=== PATIENT | female | born 1960 | race Caucasian/White ===

== ENCOUNTER → 2017-05-20 | Outpatient (CLI) | payer MEDICARE, OTHER ==
[~2017-05-20] MED LIST: FAMOTIDINE 20 MG/2 ML VIAL IV NR; FERUMOXYTOL 510 MG in SODIUM CHLORIDE 0.9% 50 ML IVPB NR; ONDANSETRON 16 MG in SODIUM CHLORIDE 0.9% 50 ML IVPB NR; SODIUM CHLORIDE 0.9% 500 ML in EMPTY BAG 1 BAG IV PRN
[2017-05-20 15:03] VITALS: BP 134/61; PULSE 77; RESP 20; TEMP 98
== END ==
LOC: EDSTATUS 14:00 → PROCWHC3 14:39
PROVIDERS: ATTEND Internal Medicine Hematology & Oncology
DX: D50.0 Iron deficiency anemia secondary to blood loss (chronic) (principal)
CPT/HCPCS: 96365; 96367; 96375; J2405; Q0138

== ENCOUNTER → 2017-10-22 | Outpatient (CLI) | payer MEDICARE ==
[2017-10-22 17:05] LABS: Calcium 9.7 mg/dL (8.4-10.2); Phosphorus 3.4 mg/dL (2.5-4.5); Potassium 4.2 mmol/L (3.5-5.1)
[2017-10-24 02:41] LABS: Iron Saturation 15.03 (12.00-45.00)
[2017-10-24 02:50] LABS: Vitamin D 25 Hydroxy 49.7 ng/mL (30.0-100.0)
== END | disposition home or self-care (01) ==
LOC: LABWHC1 16:21
DX: I10 Essential (primary) hypertension (principal)
CPT/HCPCS: 36415; 80048; 82306; 82728; 83540; 83550; 83735; 84100; 84550

== ENCOUNTER 2019-10-06 12:27 | Inpatient (IN) | payer MEDICARE ==
--- NOTE | 2019-10-06 12:59 | ED ---
General Adult HPI - General Chief complaint: Skin/Abscess/Foreign Body Stated complaint: cellulitis Time Seen by Provider: 10/06/19 12:35 Source: patient, RN notes reviewed Mode of arrival: ambulatory Limitations: no limitations - History of Present Illness Initial comments: Patient is a pleasant 59-year-old female presenting to the emergency department with concern for cellulitis. Patient has known ulcer of her left foot. Patient had some debridement done today. Patient has noticed some redness streaking up her leg. No fevers. Patient does have similar symptoms previously associated with cellulitis. No cough or dyspnea. - Related Data Home Medications Medication Instructions Recorded Confirmed Furosemide [Lasix] 80 mg PO Q8HR 05/20/17 05/24/19 INSULIN ASPART (NovoLOG) [NovoLOG] 60 unit SQ ACHS 05/20/17 05/24/19 Insulin Glargine [Lantus] 120 unit SQ BID 05/20/17 05/24/19 Baclofen [Lioresal] 20 mg PO BID 08/13/17 05/24/19 Omeprazole 20 mg PO BID 08/13/17 05/24/19 Allopurinol [Zyloprim] 300 mg PO DAILY 12/26/17 05/24/19 Aspirin 325 mg PO DAILY 12/26/17 05/24/19 Calcitriol [Rocaltrol] 0.25 mcg PO DIRECTED 12/26/17 05/24/19 Cetirizine HCl 10 mg PO DAILY 12/26/17 05/24/19 Cholecalciferol (Vitamin D3) 2,000 unit PO DAILY 12/26/17 05/24/19 [Vitamin D3] Docusate [Colace] 100 mg PO BID 12/26/17 05/24/19 Dulaglutide [Trulicity] 0.75 mg SQ WEEKLY 12/26/17 05/24/19 Ergocalciferol (Vitamin D2) 1 cap PO WEEKLY 12/26/17 05/24/19 [Vitamin D2] Ferrous Sulfate [Feosol] 325 mg PO BID 12/26/17 05/24/19 Folic Acid 1 mg PO DAILY 12/26/17 05/24/19 HYDROcodone/APAP 7.5-325MG [[place] 1 tab PO Q6HR PRN 12/26/17 05/24/19 7.5-325] Isosorbide Mononitrate [Isosorbide 30 mg PO DAILY 12/26/17 05/24/19 Mononitrate ER] LORazepam [Ativan] 0.5 mg PO BID 12/26/17 05/24/19 Metolazone [Zaroxolyn] 2.5 mg PO DAILY 12/26/17 05/24/19 Metoprolol Tartrate [Lopressor] 50 mg PO BID 12/26/17 05/24/19 Ondansetron HCl [Zofran] 8 mg PO TID 12/26/17 05/24/19 Oxygen 3 l NASAL CONTINUOUS 12/26/17 05/24/19 Potassium Chloride [K-Tab ER] 20 meq PO DAILY 12/26/17 05/24/19 Pregabalin [Lyrica] 300 mg PO TID 12/26/17 05/24/19 Spironolactone [Aldactone] 25 mg PO DAILY 12/26/17 05/24/19 Venlafaxine HCl [Effexor XR] 150 mg PO HS 12/26/17 05/24/19 Allergies Allergy/AdvReac Type Severity Reaction Status Date / Time codeine AdvReac Unknown Verified 05/24/19 13:20 Review of Systems ROS Statement: Those systems with pertinent positive or pertinent negative responses have been documented in the HPI. ROS Other: All systems not noted in ROS Statement are negative. Constitutional: Denies: fever Eyes: Denies: eye pain ENT: Denies: ear pain Respiratory: Denies: cough, dyspnea Cardiovascular: Denies: chest pain Endocrine: Denies: fatigue Gastrointestinal: Denies: abdominal pain Genitourinary: Denies: dysuria Musculoskeletal: Denies: back pain Skin: Reports: rash Neurological: Denies: weakness Past Medical History Past Medical History: Coronary Artery Disease (CAD), Heart Failure, COPD, CVA/TIA, Diabetes Mellitus, Deep Vein Thrombosis (DVT), GI Bleed, Hyperlipidemia, Hypertension, Myocardial Infarction ([place]), Osteoarthritis (OA), Pneumonia, Renal Disease, Respiratory Disorder, Skin Disorder, Sleep Apnea/CPAP/BIPAP Additional Past Medical History / Comment(s): supposed to use CPAP, DVT years ago right leg, stroke year ago-trouble w/speech @times, wound right foot, hx. anemia, stage 3 kidney disease Last Myocardial Infarction Date:: unknown History of Any Multi-Drug Resistant Organisms: None Reported Past Surgical History: Bladder Surgery, Heart Catheterization, Orthopedic Surgery, Tubal Ligation Additional Past Surgical History / Comment(s): right 2nd toe amputation, bladder suspension, sweat glands removed under arms, EGD/colonoscopies Past Anesthesia/Blood Transfusion Reactions: No Reported Reaction Past Psychological History: Depression Smoking Status: Former smoker - Past Family History Father Family Medical History: Diabetes Mellitus Mother Family Medical History: Cancer, Thyroid Disorder General Exam Limitations: no limitations General appearance: alert, in no apparent distress Head exam: Present: normocephalic Eye exam: Present: normal appearance Neck exam: Present: normal inspection Respiratory exam: Present: normal lung sounds bilaterally Cardiovascular Exam: Present: regular rate, normal rhythm GI/Abdominal exam: Present: soft. Absent: tenderness Extremities exam: Present: other (Left great toe with stage 3 ulcer. There is some erythema up to the mid chan.). Absent: calf tenderness Neurological exam: Present: alert Psychiatric exam: Present: normal affect, normal mood Skin exam: Present: erythema Course Vital Signs 10/06/19 12:29 Temperature 98.1 F Pulse Rate 88 Respiratory 20 Rate Blood Pressure 131/76 O2 Sat by Pulse 100 Oximetry - Reevaluation(s) Reevaluation #1: 10/06/19 14:06 Idea body weight of 55 kg. Fluid bolus of 1650 mL provided. 10/06/19 14:16 Patient does meet criteria for sepsis diagnosed at 1400. Blood culture and lactic acid ordered. IV antibiotics will be ordered. Fluid bolus ordered. EKG Findings - EKG Comments: EKG Findings:: Sinus rhythm at 73. VA 176. QRS 78. QT 394. QTC 434. Normal axis. Low QRS voltage. Septal Q waves. No acute ST change. Medical Decision Making - Medical Decision Making Patient reevaluated and updated. Case discussed with Dr. Brown, who will admit covering for Dr. Soria. - Lab Data Result diagrams: 10/06/19 13:20 10/06/19 13:20 Lab Results 10/06/19 10/06/19 10/06/19 Range/Units 13:20 13:20 13:20 WBC 13.7 H (3.8-10.6) k/uL RBC 3.94 (3.80-5.40) m/uL Hgb 11.3 L (11.4-16.0) gm/dL Hct 35.0 (34.0-46.0) % MCV 88.8 (80.0-100.0) fL MCH 28.8 (25.0-35.0) pg MCHC 32.4 (31.0-37.0) g/dL RDW 15.7 H (11.5-15.5) % Plt Count 260 (150-450) k/uL Neutrophils % 81 % Lymphocytes % 9 % Monocytes % 6 % Eosinophils % 2 % Basophils % 1 % Neutrophils # 11.1 H (1.3-7.7) k/uL Lymphocytes # 1.2 (1.0-4.8) k/uL Monocytes # 0.8 (0-1.0) k/uL Eosinophils # 0.3 (0-0.7) k/uL Basophils # 0.1 (0-0.2) k/uL Poikilocytosis Slight PT 9.7 (9.0-12.0) sec INR 0.9 (<1.2) APTT 22.7 (22.0-30.0) sec Sodium 136 L (137-145) mmol/L Potassium 4.5 (3.5-5.1) mmol/L Chloride 95 L (98-107) mmol/L Carbon Dioxide 31 H (22-30) mmol/L Anion Gap 10 mmol/L BUN 59 H (7-17) mg/dL Creatinine 1.33 H (0.52-1.04) mg/dL Est GFR (CKD-EPI)AfAm 50 (>60 ml/min/1.73 sqM) Est GFR (CKD-EPI)NonAf 43 (>60 ml/min/1.73 sqM) Glucose 263 H (74-99) mg/dL Plasma Lactic Acid Marshall (0.7-2.0) mmol/L Calcium 9.2 (8.4-10.2) mg/dL Total Bilirubin 0.5 (0.2-1.3) mg/dL AST 27 (14-36) U/L ALT 15 (4-34) U/L Alkaline Phosphatase 100 (38-126) U/L Total Protein 7.2 (6.3-8.2) g/dL Albumin 3.7 (3.5-5.0) g/dL 10/06/19 Range/Units 13:20 WBC (3.8-10.6) k/uL RBC (3.80-5.40) m/uL Hgb (11.4-16.0) gm/dL Hct (34.0-46.0) % MCV (80.0-100.0) fL MCH (25.0-35.0) pg MCHC (31.0-37.0) g/dL RDW (11.5-15.5) % Plt Count (150-450) k/uL Neutrophils % % Lymphocytes % % Monocytes % % Eosinophils % % Basophils % % Neutrophils # (1.3-7.7) k/uL Lymphocytes # (1.0-4.8) k/uL Monocytes # (0-1.0) k/uL Eosinophils # (0-0.7) k/uL Basophils # (0-0.2) k/uL Poikilocytosis PT (9.0-12.0) sec INR (<1.2) APTT (22.0-30.0) sec Sodium (137-145) mmol/L Potassium (3.5-5.1) mmol/L Chloride (98-107) mmol/L Carbon Dioxide (22-30) mmol/L Anion Gap mmol/L BUN (7-17) mg/dL Creatinine (0.52-1.04) mg/dL Est GFR (CKD-EPI)AfAm (>60 ml/min/1.73 sqM) Est GFR (CKD-EPI)NonAf (>60 ml/min/1.73 sqM) Glucose (74-99) mg/dL Plasma Lactic Acid Marshall 2.2 H* (0.7-2.0) mmol/L Calcium (8.4-10.2) mg/dL Total Bilirubin (0.2-1.3) mg/dL AST (14-36) U/L ALT (4-34) U/L Alkaline Phosphatase (38-126) U/L Total Protein (6.3-8.2) g/dL Albumin (3.5-5.0) g/dL - Radiology Data Radiology results: image reviewed (Left foot x-ray shows soft tissue swelling suggesting cellulitis. No fuad lytic distraction. Focal demineralization could represent impending osteomyelitis.) Critical Care Time Critical Care Time: Yes Total Critical Care Time: 33 Disposition Clinical Impression: Cellulitis, Sepsis Disposition: ADMITTED IP TO THIS HOSP Is patient prescribed a controlled substance at d/c from ED?: No Referrals: Richa Lopez MD [Primary Care Provider] - 1-2 days Decision Time: 14:17
[2019-10-06] MEDS: SODIUM CHLORIDE 0.9% 1,000 ML IV SCH ×2 (13:36→21:30)
--- NOTE | 2019-10-06 13:42 | XR ---
EXAMINATION TYPE: XR foot complete LT DATE OF EXAM: 10/06/2019 COMPARISON: NONE HISTORY: 59-year-old female great toe infection, pain TECHNIQUE: 3 views FINDINGS: Bony irregularity at the fifth metatarsal neck and also medial aspect of the fifth proximal phalangea l base suggests sequela of prior injury/healed fracture deformities. Moderate degenerative change fir st MTP joint with hallux valgus and bunion formation. Soft tissue swelling of the great toe. While there is no fuad osteolysis, there is suspicious bony d emineralization involving the distal phalangeal tuft particularly on the oblique view. A plantar ulce r is seen on the lateral view involving the great toe. IMPRESSION: 1. Soft tissue swelling suggesting cellulitis of the great toe with a plantar ulcer. 2. No fuad lytic destruction. However, marked focal demineralization involving the first distal phal angeal tuft could represent impending osteomyelitis. Radiographic follow-up may be helpful. 3. Correlate for any focal pain at the fifth MTP joint. There is bony irregularity involving both the fifth proximal phalangeal base and fifth metatarsal neck. In the absence of focal pain, likely chron ic healed fracture deformities. 4. First MTP joint OA with hallux valgus and bunion formation.
[2019-10-06 13:43] LABS: Basophils # (A) 0.1 k/uL (0-0.2); Basophils % (A) 1 %; Eosinophils # (A) 0.3 k/uL (0-0.7); Eosinophils % (A) 2 %; HGB 11.3 gm/dL (11.4-16.0); Lymphocytes # (A) 1.2 k/uL (1.0-4.8); Lymphocytes % (A) 9 %; MCH 28.8 pg (25.0-35.0); MCHC 32.4 g/dL (31.0-37.0); MCV 88.8 fL (80.0-100.0); Mean Platelet Volume 8.1; Monocytes # (A) 0.8 k/uL (0-1.0); Monocytes % (A) 6 %; Neutrophils # (A) 11.1 k/uL (1.3-7.7); Neutrophils % (A) 81 %; Platelet Count 260 k/uL (150-450); Poikilocytosis Slight; RBC 3.94 m/uL (3.80-5.40); RDW 15.7 % (11.5-15.5); WBC 13.7 k/uL (3.8-10.6)
[2019-10-06 13:52] LABS: Albumin 3.7 g/dL (3.5-5.0); Calcium 9.2 mg/dL (8.4-10.2); INR 0.9 (<1.2); Partial Thromboplastin Time 22.7 sec (22.0-30.0); Potassium 4.5 mmol/L (3.5-5.1); Prothrombin Time 9.7 sec (9.0-12.0); Total Bilirubin 0.5 mg/dL (0.2-1.3); Total Protein 7.2 g/dL (6.3-8.2)
[2019-10-06] MEDS ORDERED: SODIUM CHLORIDE 0.9% 1,000 ML IV STA ×2 (14:06)
[2019-10-06] MEDS ORDERED: NALOXONE 0.4 MG/ML 1 ML VIAL IV PRN (14:17)
[2019-10-06] MEDS ORDERED: PIPERACILLIN-TAZOBACTAM 3.375 GM in SODIUM CHLORIDE 0.9% 100 ML IVPB STA (14:17)
[2019-10-06] MEDS ORDERED: HYDROcodone/APAP 7.5-325MG 1 EACH TAB PO PRN (15:15)
[2019-10-06] MEDS ORDERED: OXYGEN NASAL SCH (15:15)
[2019-10-06] MEDS ORDERED: ONDANSETRON 4 MG TAB PO PRN (16:00)
[2019-10-06 16:47] LABS: Glucose,Whole Blood 458 mg/dL (75-99)
[2019-10-06] MEDS ORDERED: INSULIN ASPART (NovoLOG) 100 UNIT/ML VIAL SQ SCH (17:30)
[2019-10-06] MEDS: PREGABALIN 100 MG CAP PO SCH ×2 (17:41→20:45)
[2019-10-06 20:02] LABS: Glucose,Whole Blood 208 mg/dL (75-99)
[2019-10-06] MEDS: METOPROLOL TARTRATE 50 MG TAB PO SCH (20:44)
[2019-10-06] MEDS: VENLAFAXINE HCL ER 150 MG CAP PO SCH (20:45)
[2019-10-06] MEDS: DOCUSATE 100 MG CAP PO SCH (20:45)
[2019-10-06] MEDS: LORazepam 0.5 MG TAB PO SCH (20:45)
[2019-10-06] MEDS: HYDROcodone/APAP 7.5-325MG 1 EACH TAB PO PRN (20:52)
[2019-10-06] MEDS ORDERED: FERROUS SULFATE 325 MG TAB PO SCH (21:00)
[2019-10-06] MEDS ORDERED: INSULIN DETEMIR (LEVEMIR) 100 UNIT/ML SYR SQ SCH (21:00)
[2019-10-06] MEDS: INSULIN DETEMIR (LEVEMIR) 100 UNIT/ML SYR SQ SCH (21:28)
--- NOTE | 2019-10-06 22:23 | P.HPIM ---
History of Present Illness H&P Date: 10/06/19 Chief Complaint: Left foot infection Patient is a 59-year-old female with a known history of COPD on home oxygen, diabetes type 2 insulin-dependent, bilateral peripheral neuropathy, history of CVA with speech difficulty, previous history of right leg DVT, CK D stage III, obstructive sleep apnea not on CPAP at home, morbid obesity, peripheral vascular disease, history of right toe wound/debridements, ongoing left great toe ulcer since June 2019 was sent to ER from Dr. Oliver's office due to left great toe diabetic foot ulcer and increasing redness up to the left chan. Patient otherwise denied any complaints of fever or chills. No chest pain or worsening shortness of breath. No cough or sputum production. Denied any recent travel or sick contacts at home. X-ray of the left foot soft tissue swelling suggesting cellulitis of the great toe with plantar ulcer. No fuad lighting destruction. WBC 13.7, lactic acid 2.2, BNP 36 and creatinine 1.33, blood sugar 233 Review of Systems Constitutional: Patient denies any fever or chills . No generalized weakness or weight loss. Abdomen: Patient denied nausea vomiting and diarrhea and abdominal pain. Cardiovascular: Patient denies any chest pain or short of breath no palpitations. Respiratory: patient denied any cough is from production. No shortness of breath Neurologic: Patient denied any numbness or tingling headache. Left toe infection Musculoskeletal: Patient denies any complaints of joint swelling or deformity. Skin: Negative Psychiatric: Negative Endocrine: No heat or cold intolerance. No recent weight gain. Genitourinary: No dysuria or hematuria. All other 14 point ROS negative except the above Past Medical History Past Medical History: Coronary Artery Disease (CAD), Heart Failure, COPD, CV A/TIA, Diabetes Mellitus, Deep Vein Thrombosis (DVT), GERD/Reflux, GI Bleed, Hyperlipidemia, Hypertension, Myocardial Infarction ([place]), Osteoarthritis ([place]), Pneumonia, Renal Disease, Respiratory Disorder, Skin Disorder, Sleep Apnea/CPAP/BIPAP, Vascular Disorder Additional Past Medical History / Comment(s): IDDM type II, neuropathy bilateral feet up to knees and in hands and on stomach, PVD, past R toe wound/debridements and amputation, current L great toe ulcer/cellulitis-debridements, CVA with speech changes if tired, blood clot in aorta per pt-was sent to [facility] but states she never learned any more about it, past DVT R leg with surgical removal, home oxygen at 3L/NC ATC, CKD stage III, chronic anemia with blood and iron transfusions, lower GI bleed-source unknown, SKYLAR-pt does not use device, chronic low back pain, arthritis in multiple joints, 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 Last Myocardial Infarction Date:: 2004?? History of Any Multi-Drug Resistant Organisms: None Reported Past Surgical History: Bladder Surgery, Heart Catheterization, Orthopedic Surgery, Tubal Ligation Additional Past Surgical History / Comment(s): R foot toe debridements/right 2nd toe amputation, L toe wound debridement, bladder suspension, sweat glands removed under arms, EGD/colonoscopies/endoscopic capsule, surgery for deviated septum, peripheral procedure to remove DVT in R leg. Past Anesthesia/Blood Transfusion Reactions: No Reported Reaction Smoking Status: Former smoker - Past Family History Father Family Medical History: Diabetes Mellitus Additional Family Medical History / Comment(s): father is . Mother Family Medical History: Cancer, Thyroid Disorder Additional Family Medical History / Comment(s): Mother had breast cancer twice and thyroid cancer. She is still living. Medications and Allergies Home Medications Medication Instructions Recorded Confirmed Type Furosemide [Lasix] 80 mg PO TID@0900,1200,2100 05/20/17 10/06/19 History Baclofen [Lioresal] 20 mg PO BID 08/13/17 10/06/19 History Omeprazole 20 mg PO BID 08/13/17 10/06/19 History Allopurinol [Zyloprim] 300 mg PO DAILY 12/26/17 10/06/19 History Cetirizine HCl 10 mg PO DAILY 12/26/17 10/06/19 History Ergocalciferol (Vitamin D2) 1 cap PO Q30D 12/26/17 10/06/19 History [Vitamin D2] Ferrous Sulfate [Feosol] 325 mg PO DAILY 12/26/17 10/06/19 History HYDROcodone/APAP 7.5-325MG [[place] 1 tab PO DAILY PRN 12/26/17 10/06/19 History 7.5-325] Isosorbide Mononitrate [Isosorbide 30 mg PO DAILY 12/26/17 10/06/19 History Mononitrate ER] Metolazone [Zaroxolyn] 2.5 mg PO MOFR 12/26/17 10/06/19 History Metoprolol Tartrate [Lopressor] 50 mg PO BID 12/26/17 10/06/19 History Ondansetron HCl [Zofran] 8 mg PO Q8H PRN 12/26/17 10/06/19 History Potassium Chloride [K-Tab ER] 40 meq PO TID 12/26/17 10/06/19 History Pregabalin [Lyrica] 300 mg PO BID 12/26/17 10/06/19 History Spironolactone [Aldactone] 25 mg PO DAILY 12/26/17 10/06/19 History Venlafaxine HCl [Effexor XR] 150 mg PO DAILY 12/26/17 10/06/19 History Albuterol Sulfate [Proair Hfa] 2 puff INHALATION RT-QID PRN 10/06/19 10/06/19 History Aspirin EC [Ecotrin Low Dose] 81 mg PO DAILY 10/06/19 10/06/19 History Budesonide [Pulmicort Flexhaler] 1 puff INHALATION RT-BID 10/06/19 10/06/19 History Dulaglutide [Trulicity] 1.5 mg SQ FR 10/06/19 10/06/19 History Insulin Glargine,Hum.rec.anlog 90 unit SQ HS 10/06/19 10/06/19 History [Lantus Solostar] Insulin Glargine,Hum.rec.anlog 120 unit SQ DAILY 10/06/19 10/06/19 History [Lantus Solostar] Insulin Lispro [humaLOG Kwikpen] 60 unit SQ AC-TID 10/06/19 10/06/19 History Insulin Lispro [humaLOG Kwikpen] See Protocol SQ AC-TID 10/06/19 10/06/19 History Magnesium Oxide [Mag-Ox] 400 mg PO TID 10/06/19 10/06/19 History Pravastatin Sodium [Pravachol] 20 mg PO DAILY 10/06/19 10/06/19 History Prochlorperazine [Compazine] 10 mg PO DAILY PRN 10/06/19 10/06/19 History busPIRone HCl [Buspar] 10 mg PO BID 10/06/19 10/06/19 History Allergies Allergy/AdvReac Type Severity Reaction Status Date / Time codeine AdvReac headache Verified 10/06/19 15:54 Physical Exam Vitals: Vital Signs Temp Pulse Pulse Resp BP BP Pulse Ox 10/06/19 20:21 98.3 F 73 20 150/63 93 L 10/06/19 16:00 71 20 10/06/19 15:28 98.1 F 71 20 156/63 93 L 10/06/19 14:39 98.6 F 79 18 126/50 96 10/06/19 12:29 98.1 F 88 20 131/76 100 Intake and Output 10/06/19 10/06/19 10/06/19 06:59 14:59 22:59 Other: Voiding Method Toilet # Voids 1 Weight 120.202 kg 120.202 kg PHYSICAL EXAMINATION: Patient is lying in the bed comfortably, no acute distress, awake alert and oriented.. HEENT: Normocephalic. Neck is supple. Pupils reactive. Nostrils clear. Oral cavity is moist. Ears reveal no drainage. Neck reveals no JVD, carotid bruits, or thyromegaly. CHEST EXAMINATION: Trachea is central. Symmetrical expansion. Lung branch clear to auscultation and percussion. CARDIAC: Normal S1, S2 with no gallops. No murmurs ABDOMEN: Soft. Bowel sounds normal. No organomegaly. No abdominal bruits. Extremities: reveal no edema. No clubbing or cyanosis Left foot great toe plantar ulcer with surrounding redness. Serosanguineous di scharge. Tenderness positive. Neurologically awake, alert, oriented x3 with well-coordinated movements. No focal deficits noted Skin: No rash or skin lesions. Psychiatric: Coperative. Nonsuicidal Musculoskeletal: No joint swelling or deformity. Normal range of motion. Results CBC & Chem 7: 10/06/19 13:20 10/06/19 13:20 Labs: Abnormal Lab Results - Last 24 Hours (Table) 10/06/19 10/06/19 10/06/19 Range/Units 13:20 13:20 13:20 WBC 13.7 H (3.8-10.6) k/uL Hgb 11.3 L (11.4-16.0) gm/dL RDW 15.7 H (11.5-15.5) % Neutrophils # 11.1 H (1.3-7.7) k/uL Sodium 136 L (137-145) mmol/L Chloride 95 L (98-107) mmol/L Carbon Dioxide 31 H (22-30) mmol/L BUN 59 H (7-17) mg/dL Creatinine 1.33 H (0.52-1.04) mg/dL Glucose 263 H (74-99) mg/dL POC Glucose (mg/dL) (75-99) mg/dL Plasma Lactic Acid Marshall 2.2 H* (0.7-2.0) mmol/L 10/06/19 10/06/19 Range/Units 16:45 20:01 WBC (3.8-10.6) k/uL Hgb (11.4-16.0) gm/dL RDW (11.5-15.5) % Neutrophils # (1.3-7.7) k/uL Sodium (137-145) mmol/L Chloride (98-107) mmol/L Carbon Dioxide (22-30) mmol/L BUN (7-17) mg/dL Creatinine (0.52-1.04) mg/dL Glucose (74-99) mg/dL POC Glucose (mg/dL) 458 H 208 H (75-99) mg/dL Plasma Lactic Acid Marshall (0.7-2.0) mmol/L Microbiology - Last 24 Hours (Table) 10/06/19 13:00 Wound Culture - Preliminary Foot - Left Thrombosis Risk Factor Assmnt - DVT/VTE Prophylaxis DVT/VTE Prophylaxis: Pharmacologic Prophylaxis ordered - Choose All That Apply Any of the Below Risk Factors Present?: Yes Each Factor Represents 1 point: Abnormal pulmonary function (COPD), Obesity (BMI >25) Other Risk Factors: Yes Each Risk Factor Represents 2 Points: Age 61-74 years Each Risk Factor Represents 3 Points: History of DVT/PE Other congenital or acquired thrombophilia - If yes, enter type in comment: No Thrombosis Risk Factor Assessment Total Risk Factor Score: 7 Thrombosis Risk Factor Assessment Level: High Risk Assessment and Plan Assessment: Left Great toe diabetic ulcer with surrounding cellulitis. Sepsis secondary to above. Patient does have mild leukocytosis, lactic acidosis History of peripheral vascular disease Diabetes type 2 insulin-dependent with hyperglycemia Hypertension Hyperlipidemia Chronic CHF. EF unknown. COPD on home oxygen at 3 L. Chronic hypoxic respiratory failure. GERD History of GI bleed Diabetic peripheral neuropathy History of right lower extremity DVT CK D stage III Obstructive sleep apnea not on CPAP at home History of CVA with speech changes. Previous history of left great toe ulcer/cellulitis/debridement Chronic low back pain Osteoarthritis Previous history of smoking. DVT prophylaxis with heparin subcu Plan: Patient will be continued on IV hydration, antibiotics in the form of Zosyn and follow-up wound culture report. Continue with home insulin regimen and sliding scale. Pain management and bowel regimen. GI and DVT prophylaxis. Podiatric surgery and ID will be consulted. Further recommendations based on the clinical course. Time with Patient: Greater than 30
--- NOTE | 2019-10-06 23:36 | P.CONS ---
History of Present Illness - Reason for Consult Consult date: 10/06/19 left diabetic foot ulcer and cellulitis Requesting physician: Esequiel Brown - Chief Complaint left big toe wound and swelling x few days - History of Present Illness Patient is a 59-year female presenting to the ER at [facility] with chief complaints of nonhealing wound to her left big toe apparently the patient did have a wound on the plantar aspect of the left foot that has been going on for the last few weeks patient denies having any history of any trauma apparently the patient has a debridement of the wound and with concern for cellulitis he has been advised to be admitted to the hospital patient on arrival to the ER has been afebrile patient did have a white count of 13.7 x-rays of the foot today shows a soft tissue swelling with concern for impending osteomyelitis like this was elevated 2.2 local wound culture has been obtained she was tried on Zosyn admitted to hospital infectious disease was consulted for further recommendation of antibiotic therapy patient to have underlying diabetic neuropathy has denies any pain to the left foot and is not clear how it started especially wound on the plantar aspect of the left big toe he did have associated swelling redness but denies any purulent drainage. Review of Systems Positive point has been mentioned in HPI rest of the systems are negative Past Medical History Past Medical History: Coronary Artery Disease (CAD), Heart Failure, COPD, CVA/TIA, Diabetes Mellitus, Deep Vein Thrombosis (DVT), GERD/Reflux, GI Bleed, Hyperlipidemia, Hypertension, Myocardial Infarction (CA), Osteoarthritis (OA), Pneumonia, Renal Disease, Respiratory Disorder, Skin Disorder, Sleep Apnea/CPAP/BIPAP, Vascular Disorder Additional Past Medical History / Comment(s): IDDM type II, neuropathy bilateral feet up to knees and in hands and on stomach, PVD, past R toe wound/debridements and amputation, current L great toe ulcer/cellulitis-debridements, CVA with speech changes if tired, blood clot in aorta per pt-was sent to [facility] but states she never learned any more about it, past DVT R leg with surgical removal, home oxygen at 3L/NC ATC, CKD stage III, chronic anemia with blood and iron transfusions, lower GI bleed-source unknown, SKYLAR-pt does not use device, chronic low back pain, arthritis in multiple joints, 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 Last Myocardial Infarction Date:: 2004?? History of Any Multi-Drug Resistant Organisms: None Reported Past Surgical History: Bladder Surgery, Heart Catheterization, Orthopedic Surgery, Tubal Ligation Additional Past Surgical History / Comment(s): R foot toe debridements/right 2nd toe amputation, L toe wound debridement, bladder suspension, sweat glands removed under arms, EGD/colonoscopies/endoscopic capsule, surgery for deviated septum, peripheral procedure to remove DVT in R leg. Past Anesthesia/Blood Transfusion Reactions: No Reported Reaction Smoking Status: Former smoker - Past Family History Father Family Medical History: Diabetes Mellitus Additional Family Medical History / Comment(s): father is . Mother Family Medical History: Cancer, Thyroid Disorder Additional Family Medical History / Comment(s): Mother had breast cancer twice and thyroid cancer. She is still living. Medications and Allergies Home Medications Medication Instructions Recorded Confirmed Type Furosemide [Lasix] 80 mg PO TID@0900,1200,2100 05/20/17 10/06/19 History Baclofen [Lioresal] 20 mg PO BID 08/13/17 10/06/19 History Omeprazole 20 mg PO BID 08/13/17 10/06/19 History Allopurinol [Zyloprim] 300 mg PO DAILY 12/26/17 10/06/19 History Cetirizine HCl 10 mg PO DAILY 12/26/17 10/06/19 History Ergocalciferol (Vitamin D2) 1 cap PO Q30D 12/26/17 10/06/19 History [Vitamin D2] Ferrous Sulfate [Feosol] 325 mg PO DAILY 12/26/17 10/06/19 History HYDROcodone/APAP 7.5-325MG [Menno 1 tab PO DAILY PRN 12/26/17 10/06/19 History 7.5-325] Isosorbide Mononitrate [Isosorbide 30 mg PO DAILY 12/26/17 10/06/19 History Mononitrate ER] Metolazone [Zaroxolyn] 2.5 mg PO MOFR 12/26/17 10/06/19 History Metoprolol Tartrate [Lopressor] 50 mg PO BID 12/26/17 10/06/19 History Ondansetron HCl [Zofran] 8 mg PO Q8H PRN 12/26/17 10/06/19 History Potassium Chloride [K-Tab ER] 40 meq PO TID 12/26/17 10/06/19 History Pregabalin [Lyrica] 300 mg PO BID 12/26/17 10/06/19 History Spironolactone [Aldactone] 25 mg PO DAILY 12/26/17 10/06/19 History Venlafaxine HCl [Effexor XR] 150 mg PO DAILY 12/26/17 10/06/19 History Albuterol Sulfate [Proair Hfa] 2 puff INHALATION RT-QID PRN 10/06/19 10/06/19 History Aspirin EC [Ecotrin Low Dose] 81 mg PO DAILY 10/06/19 10/06/19 History Budesonide [Pulmicort Flexhaler] 1 puff INHALATION RT-BID 10/06/19 10/06/19 History Dulaglutide [Trulicity] 1.5 mg SQ FR 10/06/19 10/06/19 History Insulin Glargine,Hum.rec.anlog 90 unit SQ HS 10/06/19 10/06/19 History [Lantus Solostar] Insulin Glargine,Hum.rec.anlog 120 unit SQ DAILY 10/06/19 10/06/19 History [Lantus Solostar] Insulin Lispro [humaLOG Kwikpen] 60 unit SQ AC-TID 10/06/19 10/06/19 History Insulin Lispro [humaLOG Kwikpen] See Protocol SQ AC-TID 10/06/19 10/06/19 H istory Magnesium Oxide [Mag-Ox] 400 mg PO TID 10/06/19 10/06/19 History Pravastatin Sodium [Pravachol] 20 mg PO DAILY 10/06/19 10/06/19 History Prochlorperazine [Compazine] 10 mg PO DAILY PRN 10/06/19 10/06/19 History busPIRone HCl [Buspar] 10 mg PO BID 10/06/19 10/06/19 History Allergies Allergy/AdvReac Type Severity Reaction Status Date / Time codeine AdvReac headache Verified 10/06/19 15:54 Physical Exam Vitals: Vital Signs Temp Pulse Pulse Resp BP BP Pulse Ox 10/06/19 15:28 98.1 F 71 20 156/63 93 L 10/06/19 14:39 98.6 F 79 18 126/50 96 03/25/20 12:29 98.1 F 88 20 131/76 100 Intake and Output 10/06/19 10/06/19 10/06/19 06:59 14:59 22:59 Other: Weight 120.202 kg 120.202 kg GENERAL DESCRIPTION: Middle-aged female lying in bed, no distress. No tachypnea or accessory muscle of respiration use. HEENT: Shows Pallor , no scleral icterus. Oral mucous membrane is dry. NECK: Trachea central, no thyromegaly. LUNGS: Unlabored breathing. Clear to auscultation anteriorly. No wheeze or crackle. HEART: S1, S2, regular rate and rhythm. ABDOMEN: Soft, no tenderness , guarding or rigidity EXTREMITIES: Wound on the plantar aspect of the left big toe minimal slough tissue surrounding redness swelling no foul-smelling drainage sKIN: No rash, no masses palpable. NEUROLOGICAL: The patient is awake, alert, oriented x3, mood and affect normal. Results CBC & Chem 7: 10/06/19 13:20 10/06/19 13:20 Labs: Abnormal Lab Results - Last 24 Hours (Table) 10/06/19 10/06/19 10/06/19 Range/Units 13:20 13:20 13:20 WBC 13.7 H (3.8-10.6) k/uL Hgb 11.3 L (11.4-16.0) gm/dL RDW 15.7 H (11.5-15.5) % Neutrophils # 11.1 H (1.3-7.7) k/uL Sodium 136 L (137-145) mmol/L Chloride 95 L (98-107) mmol/L Carbon Dioxide 31 H (22-30) mmol/L BUN 59 H (7-17) mg/dL Creatinine 1.33 H (0.52-1.04) mg/dL Glucose 263 H (74-99) mg/dL Plasma Lactic Acid Marshall 2.2 H* (0.7-2.0) mmol/L Assessment and Plan Assessment: -patient with left diabetic foot infection in this patient who did have left big toe plantar diabetic foot ulcer with surrounding cellulitis underlying osteomyelitis managed and excluded on the way home the abnormality seen on the x-ray though the wound was not seem to be probing down to the bone on clinical examination will need to cover for the mixed pineda associated with these types of infection (1) Cellulitis Current Visit: Yes Status: Acute Code(s): L03.90 - CELLULITIS, UNSPECIFIED SNOMED Code(s): 126456447 (2) Diabetic ulcer of right foot associated with diabetes mellitus due to underlying condition, with fat layer exposed Current Visit: No Status: Acute Code(s): E08.621 - DIABETES MELLITUS DUE TO UNDERLYING CONDITION W FOOT ULCER; L97.512 - NON-PRS CHRONIC ULCER OTH PRT RIGHT FOOT W FAT LAYER EXPOSED SNOMED Code(s): 727953499 Plan: 1-Zosyn 3.375 g every 8 hour 2-local wound care with the gisela honey followed by moist dressing 3-we will obtain bone scan to rule out osteomyelitis We will follow on clinical condition and cultures to further adjust medication if needed Thank you for this consultation we will follow the patient along with you
[2019-10-06] MEDS: PIPERACILLIN-TAZOBACTAM 3.375 GM in SODIUM CHLORIDE 0.9% 100 ML IVPB SCH (23:45)
[2019-10-06] MEDS: HEPARIN SODIUM,PORCINE 5,000 UNIT/ML 1 ML VIAL SQ SCH (23:45)
[2019-10-07] MEDS: SODIUM CHLORIDE 0.9% 1,000 ML IV SCH ×2 (05:47→09:47)
[2019-10-07] MEDS ORDERED: INSULIN DETEMIR (LEVEMIR) 100 UNIT/ML SYR SQ SCH (07:00)
[2019-10-07 07:05] LABS: Glucose,Whole Blood 90 mg/dL (75-99)
[2019-10-07 08:16] LABS: Basophils # (A) 0.1 k/uL (0-0.2); Basophils % (A) 1 %; Eosinophils # (A) 0.3 k/uL (0-0.7); Eosinophils % (A) 3 %; HCT 33.4 % (34.0-46.0); HGB 10.7 gm/dL (11.4-16.0); Hypochromasia Slight; Lymphocytes # (A) 1.9 k/uL (1.0-4.8); Lymphocytes % (A) 18 %; MCH 28.7 pg (25.0-35.0); MCHC 32.1 g/dL (31.0-37.0); MCV 89.5 fL (80.0-100.0); Monocytes # (A) 0.4 k/uL (0-1.0); Monocytes % (A) 4 %; Neutrophils # (A) 7.7 k/uL (1.3-7.7); Neutrophils % (A) 73 %; Platelet Count 275 k/uL (150-450); Poikilocytosis Slight; RBC 3.73 m/uL (3.80-5.40); RDW 15.7 % (11.5-15.5); WBC 10.5 k/uL (3.8-10.6)
[2019-10-07 08:26] LABS: Calcium 8.9 mg/dL (8.4-10.2); Potassium 3.4 mmol/L (3.5-5.1)
[2019-10-07] MEDS ORDERED: METOLAZONE 2.5 MG TAB PO SCH (09:00)
[2019-10-07] MEDS ORDERED: CHOLECALCIFEROL 1,000 UNIT TAB PO SCH (09:00)
[2019-10-07] MEDS ORDERED: ASPIRIN 325 MG TAB PO SCH (09:00)
[2019-10-07] MEDS: INSULIN DETEMIR (LEVEMIR) 100 UNIT/ML SYR SQ SCH ×2 (09:28→21:37)
[2019-10-07] MEDS: INSULIN ASPART (NovoLOG) 100 UNIT/ML VIAL SQ SCH ×3 (09:41→17:12)
[2019-10-07 09:42] LABS: Glucose,Whole Blood 105 mg/dL (75-99)
[2019-10-07] MEDS: FERROUS SULFATE 325 MG TAB PO SCH (09:43)
[2019-10-07] MEDS: ASPIRIN 81 MG PO SCH (09:43)
[2019-10-07] MEDS: LORATADINE 10 MG TAB PO SCH (09:43)
[2019-10-07] MEDS: HEPARIN SODIUM,PORCINE 5,000 UNIT/ML 1 ML VIAL SQ SCH ×3 (09:43→23:05)
[2019-10-07] MEDS: LORazepam 0.5 MG TAB PO SCH ×2 (09:43→20:49)
[2019-10-07] MEDS: METOPROLOL TARTRATE 50 MG TAB PO SCH ×2 (09:44→20:49)
[2019-10-07] MEDS: FOLIC ACID 1 MG TAB PO SCH (09:44)
[2019-10-07] MEDS: ALLOPURINOL 300 MG TAB PO SCH (09:44)
[2019-10-07] MEDS: ISOSORBIDE MONONITRATE ER 30 MG TAB.ER.24H PO SCH (09:44)
[2019-10-07] MEDS: DOCUSATE 100 MG CAP PO SCH ×2 (09:44→20:49)
[2019-10-07] MEDS: SPIRONOLACTONE 25 MG TAB PO SCH (09:44)
[2019-10-07] MEDS: PREGABALIN 100 MG CAP PO SCH ×3 (09:44→20:48)
[2019-10-07] MEDS: PANTOPRAZOLE 40 MG TABLET PO SCH (09:45)
[2019-10-07] MEDS: PIPERACILLIN-TAZOBACTAM 3.375 GM in SODIUM CHLORIDE 0.9% 100 ML IVPB SCH ×3 (09:45→23:05)
[2019-10-07] MEDS: CALCITRIOL 0.25 MCG CAP PO SCH (09:57)
[2019-10-07 11:19] LABS: Glucose,Whole Blood 119 mg/dL (75-99)
--- NOTE | 2019-10-07 12:08 | NM ---
EXAMINATION TYPE: NM bone 3 phase DATE OF EXAM: 10/07/2019 COMPARISON: Left foot x-ray from yesterday. HISTORY: First toe infection plantar surface possible osteomyelitis. Triple phase bone scintigraphy was performed following the injection of 26 mCi Tc 99m MDP. Immediate images and 4 hours post injection images acquired of the bilateral ankles and feet. FINDINGS: Dynamic arterial phase images show increased uptake to the left ankle and foot. Soft tissue phase images shows similar increased uptake to the left ankle and foot with greatest uptake at area of clinical concern left first toe. Delayed phase images however do not show increased radiotracer up take at the area of clinical concern left first toe there is more prominent uptake in roughly the thi rd toe which does not show significant increased uptake on the first 2 phases of imaging. Etiology un certain as I do not see significant increased degenerative change at this level to account for findin gs. IMPRESSION: No scintigraphic increased three-phase radiotracer uptake to the area of clinical concern left first toe distally to suggest acute or active osteomyelitis.
[2019-10-07 16:50] LABS: Glucose,Whole Blood 211 mg/dL (75-99)
[2019-10-07 20:09] LABS: Glucose,Whole Blood 145 mg/dL (75-99)
[2019-10-07] MEDS: VENLAFAXINE HCL ER 150 MG CAP PO SCH (20:49)
--- NOTE | 2019-10-07 22:17 | PN ---
PROGRESS NOTE DATE OF SERVICE: 10/07/2019 REASON FOR FOLLOWUP: Left big toe diabetic foot infection. INTERVAL HISTORY: The patient is currently afebrile. The patient has been breathing comfortably. The patient denies having any chest pain or shortness of breath or cough. No nausea, vomiting. No abdominal pain or pain to the left big toe area. PHYSICAL EXAMINATION: Her blood pressure is 142/68 with a pulse of 54, temperature 98.3. She is 99% on 3 L nasal cannula. General description is an elderly female up in the chair in no distress. RESPIRATORY SYSTEM: Unlabored breathing. Clear to auscultation anteriorly. HEART: S1, S2. Regular rate and rhythm. ABDOMEN: Soft. No tenderness. Left foot is currently dressed up. No obvious drainage on the dressing. LABS: Hemoglobin is 10.7, white count 10.5. BUN of 16, creatinine 1.36. Wound culture is currently pending. Bone scan was negative for any osteomyelitis. DIAGNOSTIC IMPRESSION AND PLAN: Patient with left diabetic foot infection and secondary cellulitis. We are waiting for the culture to finalize. Will keep the patient on the Zosyn. Discharge antibiotic will depend upon the culture report. Continue with supportive care. MMODL / IJN: [id number] /
[2019-10-08] MEDS: SODIUM CHLORIDE 0.9% 1,000 ML IV SCH ×3 (05:26→22:55)
[2019-10-08 07:02] LABS: Glucose,Whole Blood 75 mg/dL (75-99)
[2019-10-08] MEDS: PANTOPRAZOLE 40 MG TABLET PO SCH (08:35)
[2019-10-08] MEDS: METOPROLOL TARTRATE 50 MG TAB PO SCH ×2 (08:35→22:54)
[2019-10-08] MEDS: ASPIRIN 81 MG PO SCH (08:35)
[2019-10-08] MEDS: PREGABALIN 100 MG CAP PO SCH ×3 (08:35→22:53)
[2019-10-08] MEDS: ISOSORBIDE MONONITRATE ER 30 MG TAB.ER.24H PO SCH (08:35)
[2019-10-08] MEDS: ALLOPURINOL 300 MG TAB PO SCH (08:36)
[2019-10-08] MEDS: SPIRONOLACTONE 25 MG TAB PO SCH (08:36)
[2019-10-08] MEDS: FERROUS SULFATE 325 MG TAB PO SCH (08:36)
[2019-10-08] MEDS: DOCUSATE 100 MG CAP PO SCH ×2 (08:36→22:53)
[2019-10-08] MEDS: LORazepam 0.5 MG TAB PO SCH ×2 (08:36→22:54)
[2019-10-08] MEDS: LORATADINE 10 MG TAB PO SCH (08:36)
[2019-10-08] MEDS: HEPARIN SODIUM,PORCINE 5,000 UNIT/ML 1 ML VIAL SQ SCH ×3 (08:36→23:59)
[2019-10-08] MEDS: FOLIC ACID 1 MG TAB PO SCH (08:36)
[2019-10-08] MEDS: INSULIN DETEMIR (LEVEMIR) 100 UNIT/ML SYR SQ SCH ×2 (08:37→23:10)
[2019-10-08] MEDS: INSULIN ASPART (NovoLOG) 100 UNIT/ML VIAL SQ SCH ×3 (08:38→17:26)
[2019-10-08] MEDS: PIPERACILLIN-TAZOBACTAM 3.375 GM in SODIUM CHLORIDE 0.9% 100 ML IVPB SCH (08:38)
[2019-10-08] MEDS: METOLAZONE 2.5 MG TAB PO SCH (08:39)
[2019-10-08 11:20] LABS: Glucose,Whole Blood 112 mg/dL (75-99)
[2019-10-08] MEDS ORDERED: VANCOMYCIN IV PER PHARMACY 1 EACH MISC MISCELLANE PRN (14:37)
[2019-10-08] MEDS: VANCOMYCIN 1,750 MG in SODIUM CHLORIDE 0.9% 500 ML 500 ML IVPB SCH (15:57)
[2019-10-08 17:25] LABS: Glucose,Whole Blood 68 mg/dL (75-99)
[2019-10-08 17:33] LABS: Glucose,Whole Blood 74 mg/dL (75-99)
[2019-10-08 22:10] LABS: Glucose,Whole Blood 164 mg/dL (75-99)
--- NOTE | 2019-10-08 22:27 | PN ---
PROGRESS NOTE DATE OF SERVICE: 10/08/2019 REASON FOR FOLLOWUP: Left big toe diabetic foot infection. INTERVAL HISTORY: The patient is currently afebrile. She has been breathing comfortably. Denies having any chest pain or any cough. No nausea, no vomiting. No abdominal pain. Pain to the left foot big toe wound is currently controlled. PHYSICAL EXAMINATION: Blood pressure 126/57 with a pulse of 49, temperature 98. She is 97% on room air. General description is a middle-aged female lying in bed in no distress. RESPIRATORY SYSTEM: Unlabored breathing. Clear to auscultation anteriorly. HEART: S1, S2. Regular rate and rhythm. ABDOMEN: Soft. No tenderness. Left foot big toe wound with some slough tissue. Minimal swelling and redness. No drainage. LABS: Hemoglobin is 10.7, white count 10.5. Creatinine is 1.36. Wound culture has been finalized with MRSA and Streptococcus agalactiae. DIAGNOSTIC IMPRESSION AND PLAN: Patient with left big toe plantar wound with secondary cellulitis, culture now with methicillin-resistant Staphylococcus aeruginosa and Streptococcus agalactiae. Bone scan was negative for any osteomyelitis. We will discontinue Zosyn and start the patient on vancomycin, Pharmacy to dose, and will monitor her kidney function closely. Local care with [facility]. Keep the area off pressure. MMODL / IJN: [id number] /
[2019-10-08] MEDS: VENLAFAXINE HCL ER 150 MG CAP PO SCH (22:54)
[2019-10-08] MEDS: HYDROcodone/APAP 7.5-325MG 1 EACH TAB PO PRN (23:09)
--- NOTE | 2019-10-08 23:31 | P.PN ---
Subjective Progress Note Date: 10/07/19 Principal diagnosis: Left Great toe diabetic ulcer with surrounding cellulitis. Patient is a 59-year-old female with a known history of COPD on home oxygen, diabetes type 2 insulin-dependent, bilateral peripheral neuropathy, history of CVA with speech difficulty, previous history of right leg DVT, CK D stage III, obstructive sleep apnea not on CPAP at home, morbid obesity, peripheral vascular disease, history of right toe wound/debridements, ongoing left great toe ulcer since June 2019 was sent to ER from Dr. Oliver's office due to left great toe diabetic foot ulcer and increasing redness up to the left chan. Patient otherwise denied any complaints of fever or chills. No chest pain or worsening shortness of breath. No cough or sputum production. Denied any recent travel or sick contacts at home. X-ray of the left foot soft tissue swelling suggesting cellulitis of the great toe with plantar ulcer. No fuad lighting destruction. WBC 13.7, lactic acid 2.2, BNP 36 and creatinine 1.33, blood sugar 233 10/07/2019 Patient denied any complaints of chest pain or shortness of breath. Left great toe pain and redness improved no discharge noted. Leukocytosis improved to 10.5. Patient is being continued on antibiotics in the form of Zosyn. Awaiting culture reports. No nausea vomiting or abdominal pain. No diarrhea. Tolerating oral diet. Current medications reviewed. Objective - Vital Signs Vital signs: Vital Signs Temp 97.8 F 10/07/19 11:07 Pulse 58 L 10/07/19 11:07 Resp 18 10/07/19 11:07 BP 130/58 10/07/19 11:07 Pulse Ox 97 10/07/19 11:07 Intake & Output 10/06/19 10/07/19 10/07/19 18:59 06:59 18:59 Weight 120.202 kg Other: Voiding Method Toilet Toilet Toilet # Voids 1 - Exam PHYSICAL EXAMINATION: Patient is lying in the bed comfortably, no acute distress, awake alert and oriented.. HEENT: Normocephalic. Neck is supple. Pupils reactive. Nostrils clear. Oral cavity is moist. Ears reveal no drainage. Neck reveals no JVD, carotid bruits, or thyromegaly. CHEST EXAMINATION: Trachea is central. Symmetrical expansion. Lung branch clear to auscultation and percussion. CARDIAC: Normal S1, S2 with no gallops. No murmurs ABDOMEN: Soft. Bowel sounds normal. No organomegaly. No abdominal bruits. Extremities: reveal no edema. No clubbing or cyanosis Left foot great toe plantar ulcer with surrounding redness. no discharge. mild Tenderness positive. Neurologically awake, alert, oriented x3 with well-coordinated movements. No focal deficits noted Skin: No rash or skin lesions. Psychiatric: Coperative. Nonsuicidal Musculoskeletal: No joint swelling or deformity. Normal range of motion. - Labs CBC & Chem 7: 10/07/19 07:56 10/07/19 07:56 Labs: Abnormal Lab Results - Last 24 Hours (Table) 10/06/19 10/06/19 10/07/19 Range/Units 16:45 20:01 07:56 RBC 3.73 L (3.80-5.40) m/uL Hgb 10.7 L (11.4-16.0) gm/dL Hct 33.4 L (34.0-46.0) % RDW 15.7 H (11.5-15.5) % Potassium (3.5-5.1) mmol/L Chloride (98-107) mmol/L Carbon Dioxide (22-30) mmol/L BUN (7-17) mg/dL Creatinine (0.52-1.04) mg/dL POC Glucose (mg/dL) 458 H 208 H (75-99) mg/dL 10/07/19 10/07/19 10/07/19 Range/Units 07:56 09:40 11:10 RBC (3.80-5.40) m/uL Hgb (11.4-16.0) gm/dL Hct (34.0-46.0) % RDW (11.5-15.5) % Potassium 3.4 L (3.5-5.1) mmol/L Chloride 97 L (98-107) mmol/L Carbon Dioxide 34 H (22-30) mmol/L BUN 60 H (7-17) mg/dL Creatinine 1.36 H (0.52-1.04) mg/dL POC Glucose (mg/dL) 105 H 119 H (75-99) mg/dL Microbiology - Last 24 Hours (Table) 10/06/19 13:00 Gram Stain - Preliminary Foot - Left Wound Culture - Preliminary Assessment and Plan Assessment: Left Great toe diabetic ulcer with surrounding cellulitis. Sepsis secondary to above. Patient does have mild leukocytosis, lactic acidosis History of peripheral vascular disease Diabetes type 2 insulin-dependent with hyperglycemia Hypertension Hyperlipidemia Chronic CHF. EF unknown. COPD on home oxygen at 3 L. Chronic hypoxic respiratory failure. GERD History of GI bleed Diabetic peripheral neuropathy History of right lower extremity DVT CK D stage III Obstructive sleep apnea not on CPAP at home History of CVA with speech changes. Previous history of left great toe ulcer/cellulitis/debridement Chronic low back pain Osteoarthritis Previous history of smoking. DVT prophylaxis with heparin subcu Plan: Patient will be continued on IV hydration, antibiotics in the form of Zosyn and follow-up wound culture report. Continue with home insulin regimen and sliding scale. Pain management and bowel regimen. GI and DVT prophylaxis. Podiatric surgery and ID will be consulted. Further recommendations based on the clinical course. Time with Patient: Greater than 30
--- NOTE | 2019-10-08 23:33 | P.PN ---
Subjective Progress Note Date: 10/08/19 Principal diagnosis: Left Great toe diabetic ulcer with surrounding cellulitis. Patient is a 59-year-old female with a known history of COPD on home oxygen, diabetes type 2 insulin-dependent, bilateral peripheral neuropathy, history of CVA with speech difficulty, previous history of right leg DVT, CK D stage III, obstructive sleep apnea not on CPAP at home, morbid obesity, peripheral vascular disease, history of right toe wound/debridements, ongoing left great toe ulcer since June 2019 was sent to ER from Dr. Oliver's office due to left great toe diabetic foot ulcer and increasing redness up to the left chan. Patient otherwise denied any complaints of fever or chills. No chest pain or worsening shortness of breath. No cough or sputum production. Denied any recent travel or sick contacts at home. X-ray of the left foot soft tissue swelling suggesting cellulitis of the great toe with plantar ulcer. No fuad lighting destruction. WBC 13.7, lactic acid 2.2, BNP 36 and creatinine 1.33, blood sugar 233 10/07/2019 Patient denied any complaints of chest pain or shortness of breath. Left great toe pain and redness improved no discharge noted. Leukocytosis improved to 10.5. Patient is being continued on antibiotics in the form of Zosyn. Awaiting culture reports. No nausea vomiting or abdominal pain. No diarrhea. Tolerating oral diet. 10/08/2019 Patient denied any new complaints today. Left lower extremity swelling and pain is much improved. No discharge from the great toe ulcer. Awaiting final culture report. ID is following. Podiatric surgery was consulted. No nausea vomiting or abdominal pain or diarrhea. Current medications reviewed. Objective - Vital Signs Vital signs: Vital Signs Temp 96.9 F L 10/08/19 20:55 Pulse 56 L 10/08/19 20:55 Resp 16 10/08/19 20:55 BP 133/63 10/08/19 20:55 Pulse Ox 100 10/08/19 20:55 Intake & Output 10/08/19 10/08/19 10/09/19 06:59 18:59 06:59 Intake Total 420 Balance 420 Intake: Intake, IV Titration 100 Amount Piperacillin-Tazobactam 3 100 .375 gm In Sodium Chloride 0.9% 100 ml @ 25 mls/hr IVPB Q8HR COUNT INCLUDES THE [facility] Rx# :[id number] Oral 320 Other: Voiding Method Toilet Toilet # Voids 1 1 - Exam PHYSICAL EXAMINATION: Patient is lying in the bed comfortably, no acute distress, awake alert and o riented.. HEENT: Normocephalic. Neck is supple. Pupils reactive. Nostrils clear. Oral cavity is moist. Ears reveal no drainage. Neck reveals no JVD, carotid bruits, or thyromegaly. CHEST EXAMINATION: Trachea is central. Symmetrical expansion. Lung branch clear to auscultation and percussion. CARDIAC: Normal S1, S2 with no gallops. No murmurs ABDOMEN: Soft. Bowel sounds normal. No organomegaly. No abdominal bruits. Extremities: reveal no edema. No clubbing or cyanosis Left foot great toe plantar ulcer with surrounding redness. no discharge. mild Tenderness positive. Neurologically awake, alert, oriented x3 with well-coordinated movements. No focal deficits noted Skin: No rash or skin lesions. Psychiatric: Coperative. Nonsuicidal Musculoskeletal: No joint swelling or deformity. Normal range of motion. - Labs CBC & Chem 7: 10/07/19 07:56 10/07/19 07:56 Labs: Abnormal Lab Results - Last 24 Hours (Table) 10/08/19 10/08/19 10/08/19 Range/Units 11:19 17:13 17:31 POC Glucose (mg/dL) 112 H 68 L 74 L (75-99) mg/dL 10/08/19 Range/Units 22:09 POC Glucose (mg/dL) 164 H (75-99) mg/dL Microbiology - Last 24 Hours (Table) 10/06/19 13:20 Blood Culture - Preliminary Blood No Growth after 48 hours 10/06/19 13:00 Gram Stain - Preliminary Foot - Left Wound Culture - Preliminary Presumptive MRSA Strep agalactiae - (group b) Assessment and Plan Assessment: Left Great toe diabetic ulcer with surrounding cellulitis. Sepsis secondary to above. Patient does have mild leukocytosis, lactic aci dosis. Improved now. History of peripheral vascular disease Diabetes type 2 insulin-dependent with hyperglycemia Hypertension Hyperlipidemia Chronic CHF. EF unknown. COPD on home oxygen at 3 L. Chronic hypoxic respiratory failure. GERD History of GI bleed Diabetic peripheral neuropathy History of right lower extremity DVT CK D stage III Obstructive sleep apnea not on CPAP at home History of CVA with speech changes. Previous history of left great toe ulcer/cellulitis/debridement Chronic low back pain Osteoarthritis Previous history of smoking. DVT prophylaxis with heparin subcu Plan: Patient will be continued on IV hydration, antibiotics in the form of Zosyn and follow-up wound culture report. Continue with home insulin regimen and sliding scale. Pain management and bowel regimen. GI and DVT prophylaxis. Podiatric surgery and ID is following. Further recommendations based on the cl inical course. Time with Patient: Greater than 30
[2019-10-09 07:04] LABS: Glucose,Whole Blood 164 mg/dL (75-99)
[2019-10-09 07:11] LABS: Basophils % (A) 0 %; Eosinophils # (A) 0.2 k/uL (0-0.7); Eosinophils % (A) 2 %; HCT 33.1 % (34.0-46.0); HGB 10.3 gm/dL (11.4-16.0); Hypochromasia Moderate; Lymphocytes # (A) 1.3 k/uL (1.0-4.8); Lymphocytes % (A) 16 %; MCH 28.7 pg (25.0-35.0); MCHC 31.2 g/dL (31.0-37.0); MCV 91.8 fL (80.0-100.0); Mean Platelet Volume 8.4; Monocytes # (A) 0.6 k/uL (0-1.0); Monocytes % (A) 7 %; Neutrophils # (A) 6.1 k/uL (1.3-7.7); Neutrophils % (A) 73 %; Platelet Count 246 k/uL (150-450); Poikilocytosis Slight; RDW 15.7 % (11.5-15.5); WBC 8.4 k/uL (3.8-10.6)
[2019-10-09 07:23] LABS: Calcium 9.2 mg/dL (8.4-10.2); Potassium 4.4 mmol/L (3.5-5.1)
[2019-10-09] MEDS: INSULIN ASPART (NovoLOG) 100 UNIT/ML VIAL SQ SCH ×3 (07:54→17:24)
[2019-10-09] MEDS: VANCOMYCIN 1,750 MG in SODIUM CHLORIDE 0.9% 500 ML 500 ML IVPB SCH (07:54)
[2019-10-09] MEDS: FOLIC ACID 1 MG TAB PO SCH (07:55)
[2019-10-09] MEDS: DOCUSATE 100 MG CAP PO SCH ×2 (07:55→22:37)
[2019-10-09] MEDS: FERROUS SULFATE 325 MG TAB PO SCH (07:55)
[2019-10-09] MEDS: HEPARIN SODIUM,PORCINE 5,000 UNIT/ML 1 ML VIAL SQ SCH ×2 (07:55→17:23)
[2019-10-09] MEDS: SPIRONOLACTONE 25 MG TAB PO SCH (07:55)
[2019-10-09] MEDS: PANTOPRAZOLE 40 MG TABLET PO SCH (07:55)
[2019-10-09] MEDS: ALLOPURINOL 300 MG TAB PO SCH (07:55)
[2019-10-09] MEDS: METOPROLOL TARTRATE 50 MG TAB PO SCH ×2 (07:55→22:36)
[2019-10-09] MEDS: ISOSORBIDE MONONITRATE ER 30 MG TAB.ER.24H PO SCH (07:55)
[2019-10-09] MEDS: ASPIRIN 81 MG PO SCH (07:55)
[2019-10-09] MEDS: LORATADINE 10 MG TAB PO SCH (07:55)
[2019-10-09] MEDS: SODIUM CHLORIDE 0.9% 1,000 ML IV SCH ×2 (07:56→17:23)
[2019-10-09] MEDS: INSULIN DETEMIR (LEVEMIR) 100 UNIT/ML SYR SQ SCH ×2 (07:56→22:37)
[2019-10-09] MEDS: PREGABALIN 100 MG CAP PO SCH ×3 (08:09→22:36)
[2019-10-09] MEDS: LORazepam 0.5 MG TAB PO SCH ×2 (08:09→22:36)
[2019-10-09 10:35] LABS: Glucose,Whole Blood 57 mg/dL (75-99)
[2019-10-09 10:49] LABS: Glucose,Whole Blood 58 mg/dL (75-99)
[2019-10-09 11:03] LABS: Glucose,Whole Blood 66 mg/dL (75-99)
[2019-10-09 11:18] LABS: Glucose,Whole Blood 71 mg/dL (75-99)
[2019-10-09 17:01] LABS: Glucose,Whole Blood 120 mg/dL (75-99)
[2019-10-09 20:25] LABS: Glucose,Whole Blood 152 mg/dL (75-99)
[2019-10-09] MEDS: VENLAFAXINE HCL ER 150 MG CAP PO SCH (22:36)
[2019-10-09] MEDS: HYDROcodone/APAP 7.5-325MG 1 EACH TAB PO PRN (22:37)
[2019-10-10] MEDS: HEPARIN SODIUM,PORCINE 5,000 UNIT/ML 1 ML VIAL SQ SCH ×3 (01:12→17:32)
[2019-10-10] MEDS: SODIUM CHLORIDE 0.9% 1,000 ML IV SCH ×3 (06:21→21:12)
[2019-10-10 07:05] LABS: Glucose,Whole Blood 144 mg/dL (75-99)
--- NOTE | 2019-10-10 07:07 | PN ---
PROGRESS NOTE DATE OF SERVICE: 10/09/2019 REASON FOR FOLLOWUP: Left big toe plantar wound with MRSA infection. INTERVAL HISTORY: The patient is currently afebrile. The patient is breathing comfortably. The patient denies having any chest pain or shortness of breath or cough. No nausea, vomiting. No abdominal pain. No pain to the left big toe. PHYSICAL EXAMINATION: Blood pressure 124/56, pulse of 62, temperature 97.8. She is 98% on 2 L nasal cannula. General description is a middle-aged female lying in bed in no distress. Respiratory system: Unlabored breathing, clear to auscultation anteriorly. Heart S1, S2. Regular rate and rhythm. Abdomen soft, no tenderness. Left foot is currently dressed up. No obvious drainage on the dressing. LABS: No new labs have been obtained today. DIAGNOSTIC IMPRESSION AND PLAN: Patient with left big toe wound with secondary cellulitis. Culture with group B strep. The patient has been on vancomycin to continue over the weekend. Hopefully finish therapy with oral antibiotic on discharge. Continue local wound care with [facility]. Continue supportive care. MMODL / IJN: [id number] /
[2019-10-10] MEDS: INSULIN ASPART (NovoLOG) 100 UNIT/ML VIAL SQ SCH ×3 (08:03→17:32)
[2019-10-10] MEDS: ASPIRIN 81 MG PO SCH (08:04)
[2019-10-10] MEDS: SPIRONOLACTONE 25 MG TAB PO SCH (08:04)
[2019-10-10] MEDS: FOLIC ACID 1 MG TAB PO SCH (08:04)
[2019-10-10] MEDS: ISOSORBIDE MONONITRATE ER 30 MG TAB.ER.24H PO SCH (08:04)
[2019-10-10] MEDS: METOPROLOL TARTRATE 50 MG TAB PO SCH ×2 (08:04→21:10)
[2019-10-10] MEDS: LORazepam 0.5 MG TAB PO SCH ×2 (08:04→21:10)
[2019-10-10] MEDS: ALLOPURINOL 300 MG TAB PO SCH (08:04)
[2019-10-10] MEDS: FERROUS SULFATE 325 MG TAB PO SCH (08:04)
[2019-10-10] MEDS: PANTOPRAZOLE 40 MG TABLET PO SCH (08:04)
[2019-10-10] MEDS: PREGABALIN 100 MG CAP PO SCH ×3 (08:04→21:14)
[2019-10-10] MEDS: DOCUSATE 100 MG CAP PO SCH ×2 (08:04→21:10)
[2019-10-10] MEDS: LORATADINE 10 MG TAB PO SCH (08:04)
[2019-10-10] MEDS: INSULIN DETEMIR (LEVEMIR) 100 UNIT/ML SYR SQ SCH ×2 (08:05→21:11)
[2019-10-10] MEDS: VANCOMYCIN 1,750 MG in SODIUM CHLORIDE 0.9% 500 ML 500 ML IVPB SCH (08:06)
[2019-10-10 11:30] LABS: Glucose,Whole Blood 79 mg/dL (75-99)
[2019-10-10 16:48] LABS: Glucose,Whole Blood 121 mg/dL (75-99)
[2019-10-10 20:52] LABS: Glucose,Whole Blood 143 mg/dL (75-99)
[2019-10-10] MEDS: VENLAFAXINE HCL ER 150 MG CAP PO SCH (21:10)
[2019-10-11] MEDS: HEPARIN SODIUM,PORCINE 5,000 UNIT/ML 1 ML VIAL SQ SCH ×4 (00:02→23:42)
[2019-10-11] MEDS: HYDROcodone/APAP 7.5-325MG 1 EACH TAB PO PRN (00:05)
--- NOTE | 2019-10-11 00:05 | P.PN ---
Subjective Progress Note Date: 10/09/19 Principal diagnosis: Left Great toe diabetic ulcer with surrounding cellulitis. Patient is a 59-year-old female with a known history of COPD on home oxygen, diabetes type 2 insulin-dependent, bilateral peripheral neuropathy, history of CVA with speech difficulty, previous history of right leg DVT, CK D stage III, obstructive sleep apnea not on CPAP at home, morbid obesity, peripheral vascular disease, history of right toe wound/debridements, ongoing left great toe ulcer since June 2019 was sent to ER from Dr. Oliver's office due to left great toe diabetic foot ulcer and increasing redness up to the left chan. Patient otherwise denied any complaints of fever or chills. No chest pain or worsening shortness of breath. No cough or sputum production. Denied any recent travel or sick contacts at home. X-ray of the left foot soft tissue swelling suggesting cellulitis of the great toe with plantar ulcer. No fuad lighting destruction. WBC 13.7, lactic acid 2.2, BNP 36 and creatinine 1.33, blood sugar 233 10/07/2019 Patient denied any complaints of chest pain or shortness of breath. Left great toe pain and redness improved no discharge noted. Leukocytosis improved to 10.5. Patient is being continued on antibiotics in the form of Zosyn. Awaiting culture reports. No nausea vomiting or abdominal pain. No diarrhea. Tolerating oral diet. 10/08/2019 Patient denied any new complaints today. Left lower extremity swelling and pain is much improved. No discharge from the great toe ulcer. Awaiting final culture report. ID is following. Podiatric surgery was consulted. No nausea vomiting or abdominal pain or diarrhea. 10/09/2019 Patient denied any complaints of chest pain or shortness breath. Left great toe pain is controlled. Wound cultures growing presented to MRSA. Antibiotics changed to vancomycin. ID is following. Patient has been afebrile. No nausea vomiting or abdominal pain. No diarrhea. Tolerating oral diet. Current medications reviewed. Objective - Vital Signs Vital signs: Vital Signs Temp 97.7 F 10/10/19 13:15 Pulse 64 10/10/19 13:15 Resp 18 10/10/19 13:15 BP 143/69 10/10/19 13:15 Pulse Ox 97 10/10/19 13:15 Intake & Output 10/09/19 10/10/19 10/10/19 18:59 06:59 18:59 Intake Total 540 540 Balance 540 540 Intake: Oral 540 540 Other: Voiding Method Toilet # Voids 3 2 3 - Exam PHYSICAL EXAMINATION: Patient is lying in the bed comfortably, no acute distress, awake alert and oriented.. HEENT: Normocephalic. Neck is supple. Pupils reactive. Nostrils clear. Oral cavity is moist. Ears reveal no drainage. Neck reveals no JVD, carotid bruits, or thyromegaly. CHEST EXAMINATION: Trachea is central. Symmetrical expansion. Lung branch clear to auscultation and percussion. CARDIAC: Normal S1, S2 with no gallops. No murmurs ABDOMEN: Soft. Bowel sounds normal. No organomegaly. No abdominal bruits. Extremities: reveal no edema. No clubbing or cyanosis Left foot great toe plantar ulcer with surrounding redness. no discharge. mild Tenderness positive. Neurologically awake, alert, oriented x3 with well-coordinated movements. No focal deficits noted Skin: No rash or skin lesions. Psychiatric: Coperative. Nonsuicidal Musculoskeletal: No joint swelling or deformity. Normal range of motion. - Labs CBC & Chem 7: 10/09/19 06:23 10/09/19 06:23 Labs: Abnormal Lab Results - Last 24 Hours (Table) 10/09/19 10/09/19 10/10/19 Range/Units 17:00 20:24 07:03 POC Glucose (mg/dL) 120 H 152 H 144 H (75-99) mg/dL Microbiology - Last 24 Hours (Table) 10/06/19 13:20 Blood Culture - Preliminary Blood No Growth after 72 hours Assessment and Plan Assessment: Left Great toe diabetic ulcer with surrounding cellulitis. Sepsis secondary to above. Patient does have mild leukocytosis, lactic aci dosis. Improved now. History of peripheral vascular disease Diabetes type 2 insulin-dependent with hyperglycemia Hypertension Hyperlipidemia Chronic CHF. EF unknown. COPD on home oxygen at 3 L. Chronic hypoxic respiratory failure. GERD History of GI bleed Diabetic peripheral neuropathy History of right lower extremity DVT CK D stage III Obstructive sleep apnea not on CPAP at home History of CVA with speech changes. Previous history of left great toe ulcer/cellulitis/debridement Chronic low back pain Osteoarthritis Previous history of smoking. DVT prophylaxis with heparin subcu Plan: Patient will be continued on IV hydration, antibiotics in the form of vancomycin and follow-up final wound culture report. Continue with home insulin regimen and sliding scale. Pain management and bowel regimen. GI and DVT prophylaxis. Podiatric surgery and ID is following. Further recommendations based on the clinical course. Time with Patient: Greater than 30
--- NOTE | 2019-10-11 00:07 | P.PN ---
Subjective Progress Note Date: 10/10/19 Principal diagnosis: Left Great toe diabetic ulcer with surrounding cellulitis. Patient is a 59-year-old female with a known history of COPD on home oxygen, diabetes type 2 insulin-dependent, bilateral peripheral neuropathy, history of CVA with speech difficulty, previous history of right leg DVT, CK D stage III, obstructive sleep apnea not on CPAP at home, morbid obesity, peripheral vascular disease, history of right toe wound/debridements, ongoing left great toe ulcer since June 2019 was sent to ER from Dr. Oliver's office due to left great toe diabetic foot ulcer and increasing redness up to the left chan. Patient otherwise denied any complaints of fever or chills. No chest pain or worsening shortness of breath. No cough or sputum production. Denied any recent travel or sick contacts at home. X-ray of the left foot soft tissue swelling suggesting cellulitis of the great toe with plantar ulcer. No fuad lighting destruction. WBC 13.7, lactic acid 2.2, BNP 36 and creatinine 1.33, blood sugar 233 10/07/2019 Patient denied any complaints of chest pain or shortness of breath. Left great toe pain and redness improved no discharge noted. Leukocytosis improved to 10.5. Patient is being continued on antibiotics in the form of Zosyn. Awaiting culture reports. No nausea vomiting or abdominal pain. No diarrhea. Tolerating oral diet. 10/08/2019 Patient denied any new complaints today. Left lower extremity swelling and pain is much improved. No discharge from the great toe ulcer. Awaiting final culture report. ID is following. Podiatric surgery was consulted. No nausea vomiting or abdominal pain or diarrhea. 10/09/2019 Patient denied any complaints of chest pain or shortness breath. Left great toe pain is controlled. Wound cultures growing presumptive MRSA. Antibiotics changed to vancomycin. ID is following. Patient has been afebrile. No nausea vomiting or abdominal pain. No diarrhea. Tolerating oral diet. 10/10/2019 Patient denied any complaints of chest pain. Lying in the bed comfortably. Pain is controlled. Wound cultures showed MRSA. Currently on vancomycin. ID is following. Continued on IV antibiotics currently. Current medications reviewed. Objective - Vital Signs Vital signs: Vital Signs Temp 97.7 F 10/10/19 13:15 Pulse 64 10/10/19 13:15 Resp 18 10/10/19 13:15 BP 143/69 10/10/19 13:15 Pulse Ox 97 10/10/19 13:15 Intake & Output 10/09/19 10/10/19 10/10/19 18:59 06:59 18:59 Intake Total 540 540 Balance 540 540 Intake: Oral 540 540 Other: Voiding Method Toilet # Voids 3 2 3 - Exam PHYSICAL EXAMINATION: Patient is lying in the bed comfortably, no acute distress, awake alert and oriented.. HEENT: Normocephalic. Neck is supple. Pupils reactive. Nostrils clear. Oral cavity is moist. Ears reveal no drainage. Neck reveals no JVD, carotid bruits, or thyromegaly. CHEST EXAMINATION: Trachea is central. Symmetrical expansion. Lung branch clear to auscultation and percussion. CARDIAC: Normal S1, S2 with no gallops. No murmurs ABDOMEN: Soft. Bowel sounds normal. No organomegaly. No abdominal bruits. Extremities: reveal no edema. No clubbing or cyanosis Left foot great toe plantar ulcer with surrounding redness. no discharge. mild Tenderness positive. Neurologically awake, alert, oriented x3 with well-coordinated movements. No f ocal deficits noted Skin: No rash or skin lesions. Psychiatric: Coperative. Nonsuicidal Musculoskeletal: No joint swelling or deformity. Normal range of motion. - Labs CBC & Chem 7: 10/09/19 06:23 10/09/19 06:23 Labs: Abnormal Lab Results - Last 24 Hours (Table) 10/09/19 10/09/19 10/10/19 Range/Units 17:00 20:24 07:03 POC Glucose (mg/dL) 120 H 152 H 144 H (75-99) mg/dL Microbiology - Last 24 Hours (Table) 10/06/19 13:20 Blood Culture - Preliminary Blood No Growth after 72 hours Assessment and Plan Assessment: Left Great toe diabetic ulcer with surrounding cellulitis. Sepsis secondary to above. Patient does have mild leukocytosis, lactic acidosis. Improved now. History of peripheral vascular disease Diabetes type 2 insulin-dependent with hyperglycemia Hypertension Hyperlipidemia Chronic CHF. EF unknown. COPD on home oxygen at 3 L. Chronic hypoxic respiratory failure. GERD History of GI bleed Diabetic peripheral neuropathy History of right lower extremity DVT CK D stage III Obstructive sleep apnea not on CPAP at home History of CVA with speech changes. Previous history of left great toe ulcer/cellulitis/debridement Chronic low back pain Osteoarthritis Previous history of smoking. DVT prophylaxis with heparin subcu Plan: Patient will be continued on IV hydration, antibiotics in the form of vancomycin and follow-up final wound culture report. Continue with home insulin regimen and sliding scale. Pain management and bowel regimen. GI and DVT prophylaxis. Podiatric surgery and ID is following. Further recommendations based on the clinical course. Time with Patient: Greater than 30
[2019-10-11 06:28] LABS: Basophils # (A) 0.1 k/uL (0-0.2); Basophils % (A) 1 %; Eosinophils # (A) 0.2 k/uL (0-0.7); Eosinophils % (A) 2 %; HCT 29.1 % (34.0-46.0); HGB 9.4 gm/dL (11.4-16.0); Hypochromasia Slight; Lymphocytes # (A) 1.7 k/uL (1.0-4.8); Lymphocytes % (A) 21 %; MCH 29.2 pg (25.0-35.0); MCHC 32.4 g/dL (31.0-37.0); Mean Platelet Volume 8.1; Monocytes # (A) 0.3 k/uL (0-1.0); Monocytes % (A) 4 %; Neutrophils # (A) 5.7 k/uL (1.3-7.7); Neutrophils % (A) 70 %; Platelet Count 240 k/uL (150-450); Poikilocytosis Slight; RBC 3.23 m/uL (3.80-5.40); RDW 15.7 % (11.5-15.5); WBC 8.1 k/uL (3.8-10.6)
--- NOTE | 2019-10-11 06:40 | PN ---
PROGRESS NOTE DATE OF SERVICE: 10/10/2019. REASON FOR FOLLOWUP: Left big toe wound and cellulitis. INTERVAL HISTORY: The patient is currently afebrile. The patient is breathing comfortably. Denies having any chest pain, shortness of breath or cough. No nausea, no vomiting. No abdominal pain or pain to the left big toe. PHYSICAL EXAMINATION: Blood pressure 135/44, pulse of 63, temperature 97.2. She is 98% on 3 L nasal cannula. General description is a middle-aged female lying in bed in no distress. RESPIRATORY SYSTEM: Unlabored breathing, clear to auscultation anteriorly. HEART: S1, S2. Regular rate and rhythm. ABDOMEN: Soft, no tenderness. Left big toe still has some swelling and redness and slough tissue at the base. DIAGNOSTIC IMPRESSION AND PLAN: Patient with left big toe wound with secondary cellulitis culture with methicillin- resistant Staphylococcus aureus and group B strep. Still have inflammatory changes. Hence we will get a PICC line for tomorrow to continue vancomycin pharmacy to dose for 2 weeks and close outpatient followup. MMODL / IJN: [id number] /
[2019-10-11 06:49] LABS: Calcium 9.3 mg/dL (8.4-10.2); Potassium 4.4 mmol/L (3.5-5.1)
[2019-10-11 07:55] LABS: Glucose,Whole Blood 133 mg/dL (75-99)
[2019-10-11] MEDS: LORATADINE 10 MG TAB PO SCH (08:10)
[2019-10-11] MEDS: FOLIC ACID 1 MG TAB PO SCH (08:10)
[2019-10-11] MEDS: CALCITRIOL 0.25 MCG CAP PO SCH (08:10)
[2019-10-11] MEDS: INSULIN ASPART (NovoLOG) 100 UNIT/ML VIAL SQ SCH ×3 (08:10→17:27)
[2019-10-11] MEDS: LORazepam 0.5 MG TAB PO SCH ×2 (08:10→21:29)
[2019-10-11] MEDS: PREGABALIN 100 MG CAP PO SCH ×3 (08:10→21:29)
[2019-10-11] MEDS: INSULIN DETEMIR (LEVEMIR) 100 UNIT/ML SYR SQ SCH ×2 (08:10→21:29)
[2019-10-11] MEDS: METOLAZONE 2.5 MG TAB PO SCH (08:11)
[2019-10-11] MEDS: ASPIRIN 81 MG PO SCH (08:11)
[2019-10-11] MEDS: METOPROLOL TARTRATE 50 MG TAB PO SCH ×2 (08:11→21:29)
[2019-10-11] MEDS: FERROUS SULFATE 325 MG TAB PO SCH (08:11)
[2019-10-11] MEDS: SPIRONOLACTONE 25 MG TAB PO SCH (08:11)
[2019-10-11] MEDS: DOCUSATE 100 MG CAP PO SCH ×2 (08:11→21:29)
[2019-10-11] MEDS: ALLOPURINOL 300 MG TAB PO SCH (08:11)
[2019-10-11] MEDS: ISOSORBIDE MONONITRATE ER 30 MG TAB.ER.24H PO SCH (08:11)
[2019-10-11] MEDS: PANTOPRAZOLE 40 MG TABLET PO SCH (08:11)
[2019-10-11] MEDS: SODIUM CHLORIDE 0.9% 1,000 ML IV SCH ×2 (08:12→16:41)
[2019-10-11] MEDS: VANCOMYCIN 2,250 MG in SODIUM CHLORIDE 0.9% 500 ML 500 ML IVPB SCH (08:19)
[2019-10-11] MEDS ORDERED: LIDOCAINE 1% INJ 10MG/ML (20 ML MDV) SQ ONE (10:25)
--- NOTE | 2019-10-11 10:59 | CDI ---
Documentation Clarification Form Date: 10/11/2019 10:48:54 AM From: Amara Tay CCS, CCDS Admit Date: 10/06/2019 02:17:00 PM Patient Name: Sharon Roberto Visit Number: [id number] Discharge Date: ATTENTION: The Clinical Documentation Specialists (CDI) and [facility] Coding Staff appreciate your assistance in clarifying documentation. Please respond to the clarification below the line at the bottom and electronically sign. The CDI & [facility] Coding staff will review the response and follow-up if needed. Please note: Queries are made part of the Legal Health Record. If you have any questions, please contact the author of this message via ITS. Dr. Esequiel Brown: Anemia is documented in the 10/05 History & Physical: "...CKD stage III, chronic anemia with blood and iron transfusions, lower GI bleed-source unknown..." History/Risk Factors: IDDM II, PVD, Hypertension, Hyperlipidemia, Chronic CHF EF unknown, COPD on Home O2 3Lnc, GERD, previous GI bleed, DVT, CKD III, LALI, OA, former smoker. Clinical indicators: Patient was sent to the ED from the [facility] office on 10/05 with a left great toe diabetic foot ulcer & increasing redness up the left chan. Diagnosed with a left Great Toe Diabetic Ulcer with surrounding Cellulitis with MRSA & Strep Sepsis. Hemoglobin 10/05: 11.3*, 10/06: 10.7*, 10/08: 10.3*, 10/10: 9.4* Hematocrit 10/05: (35.0), 10/06 33.4*, 10/08: 33.1*, 10/10: 29.1* Treatment for diabetic foot ulcer & cellulitis 10/05: IV fluid 1000 mls @ 100/hr, IV Zosyn, Insulin sq, po Feosol 325 mg BID (daily). IV antibiotic changed to Vancomycin on 10/07. In order to capture the severity of condition, please clarify the type of anemia and etiology if known:. Chronic blood loss anemia Iron deficiency anemia Hemolytic anemia Drug induced anemia Anemia of chronic kidney disease Unable to determine Other, please specify (Last Form Revision: September 2019) Unable to determine MTDD
[2019-10-11 12:33] LABS: Glucose,Whole Blood 99 mg/dL (75-99)
--- NOTE | 2019-10-11 14:01 | PN ---
PROGRESS NOTE DATE OF SERVICE: 10/11/2019 REASON FOR FOLLOWUP: Left big toe wound and cellulitis. INTERVAL HISTORY: The patient is currently afebrile. The patient is breathing comfortably. The patient denies having any chest pain. No nausea, vomiting, abdominal pain or pain to the left big toe. PHYSICAL EXAMINATION: Blood pressure is 126/51, pulse of 82 temperature is 97.9. She is 97% on 3 L. General description is a middle-aged female up in the bed in no distress. RESPIRATORY SYSTEM: Unlabored breathing, clear to auscultation anteriorly. HEART: S1, S2. Regular rate and rhythm. ABDOMEN: Soft, no tenderness. LABS: Hemoglobin 9.4, white count 8.1, BUN of 41, creatinine 1.17. DIAGNOSTIC IMPRESSION AND PLAN: Patient with MRSA left big toe wound with secondary cellulitis. No drainage on the wound. Will try for short course either vanco or daptomycin. He already got the PICC line. Local wound care to continue with [facility]. Close outpatient followup. MMODL / IJN: [id number] /
[2019-10-11 17:03] LABS: Glucose,Whole Blood 159 mg/dL (75-99)
[2019-10-11 20:06] LABS: Glucose,Whole Blood 111 mg/dL (75-99)
[2019-10-11] MEDS: VENLAFAXINE HCL ER 150 MG CAP PO SCH (21:29)
[2019-10-12] MEDS: HYDROcodone/APAP 7.5-325MG 1 EACH TAB PO PRN (00:23)
[2019-10-12] MEDS: SODIUM CHLORIDE 0.9% 1,000 ML IV SCH (03:52)
[2019-10-12] MEDS ORDERED: VANCOMYCIN TROUGH DUE 1 EACH MISC MISCELLANE ONE (06:00)
[2019-10-12 06:06] VITALS: BP 123/56; PULSE 60; RESP 20; TEMP 97.4
[2019-10-12 07:10] LABS: Glucose,Whole Blood 108 mg/dL (75-99)
[2019-10-12] MEDS: PREGABALIN 100 MG CAP PO SCH (07:21)
[2019-10-12] MEDS: DOCUSATE 100 MG CAP PO SCH (07:21)
[2019-10-12] MEDS: FERROUS SULFATE 325 MG TAB PO SCH (07:21)
[2019-10-12] MEDS: HEPARIN SODIUM,PORCINE 5,000 UNIT/ML 1 ML VIAL SQ SCH (07:21)
[2019-10-12] MEDS: ASPIRIN 81 MG PO SCH (07:21)
[2019-10-12] MEDS: METOPROLOL TARTRATE 50 MG TAB PO SCH (07:21)
[2019-10-12] MEDS: PANTOPRAZOLE 40 MG TABLET PO SCH (07:21)
[2019-10-12] MEDS: FOLIC ACID 1 MG TAB PO SCH (07:21)
[2019-10-12] MEDS: SPIRONOLACTONE 25 MG TAB PO SCH (07:21)
[2019-10-12] MEDS: ISOSORBIDE MONONITRATE ER 30 MG TAB.ER.24H PO SCH (07:21)
[2019-10-12] MEDS: LORATADINE 10 MG TAB PO SCH (07:22)
[2019-10-12] MEDS: INSULIN DETEMIR (LEVEMIR) 100 UNIT/ML SYR SQ SCH (07:22)
[2019-10-12] MEDS: INSULIN ASPART (NovoLOG) 100 UNIT/ML VIAL SQ SCH ×2 (07:22→12:47)
[2019-10-12] MEDS: LORazepam 0.5 MG TAB PO SCH (07:22)
[2019-10-12] MEDS: ALLOPURINOL 300 MG TAB PO SCH (07:22)
[2019-10-12] MEDS: VANCOMYCIN 2,250 MG in SODIUM CHLORIDE 0.9% 500 ML 500 ML IVPB SCH (07:23)
--- NOTE | 2019-10-12 11:39 | IR ---
PICC LINE PLACEMENT: HISTORY: Infection requiring long-term antibiotic therapy PROCEDURE: Ultrasound and fluoroscopic guidance of PICC line placement. COMPLICATIONS: None ANESTHESIA: 1. 1% Lidocaine locally. FINDINGS/TECHNIQUE: The procedure was explained to the patient. The risks, complications, benefits and alternatives were discussed and any questions were answered. Informed consent was obtained. The patient was placed supine on the fluoroscopic table and prepped and draped in the usual sterile fash ion. Utilizing a 21 gauge needle and sonographic and fluoroscopic guidance, access in the left basi lic vein was achieved and there is placement of a 0.018 guidewire. The vein is patent. A 4-F sheath was placed over the guidewire. The guidewire and dilator were removed and a 4-F. PICC line was plac ed through the sheath with the tip at the level of the SVC. The sheath was removed, the catheter was flushed and sutured into position. The patient was stable throughout the procedure and remained sta ble upon discharge from the Department of Radiology. The vein puncture was patent under ultrasound. A newby scale image was obtained to document patency of the vein punctured. All elements of the maximal barrier technique were utilized. FLUOROSCOPY TIME: 0.1 minutes and one image submitted IMPRESSION: Successful PICC line placement under ultrasound and fluoroscopic guidance.
[2019-10-12 11:44] VITALS: BMI 47.2
[2019-10-12 12:25] LABS: Glucose,Whole Blood 72 mg/dL (75-99)
--- NOTE | 2019-10-12 14:52 | PN ---
PROGRESS NOTE DATE OF SERVICE: 10/12/2019 REASON FOR FOLLOWUP: Left big toe diabetic foot infection with MRSA. INTERVAL HISTORY: The patient is currently afebrile, patient is breathing comfortably. Patient denies having any chest pain or shortness of breath or cough. No nausea, vomiting. No abdominal pain. Pain to the left second toe. PHYSICAL EXAMINATION: Blood pressure 120/56, pulse of 50, temperature 97.4. She is 96% on 2 L nasal cannula. General description is a middle-aged female up in the bed, in no distress. RESPIRATORY SYSTEM: Unlabored breathing to auscultation anteriorly. HEART: S1, S2. Regular rate and rhythm. ABDOMEN: Soft, no tenderness. LABS: White count is therapeutic at 14.3. DIAGNOSTIC IMPRESSION AND PLAN: Patient with left big toe diabetic foot infection with secondary cellulitis culture with MRSA and strep. She did get a PICC line to continue vancomycin pharmacy to dose for 2 weeks. Local wound care with wound VAC. Follow up in the office in 2 weeks. Continue supportive care. MMODL / IJN: [id number] /
[2019-10-13] MEDS ORDERED: VANCOMYCIN TROUGH DUE 1 EACH MISC MISCELLANE ONE (08:00)
[2019-10-13] MEDS ORDERED: ERGOCALCIFEROL 50,000 UNIT CAP PO SCH (09:00)
--- NOTE | 2019-10-13 12:33 | CDI ---
Documentation Clarification Form Date: 10/13/19 From: Naila Lopez CCS Phone: If you have a question about this query, please contact Lashaun Brown, Contract Associate at [phone] between 8am and 5pm. Admit Date: 10/06/19 Discharge Date:10/12/19 Patient Name: Sharon Roberto Visit Number: [id number] ATTENTION: The Clinical Documentation Specialists (CDI) and [facility] Coding Staff appreciate your assistance in clarifying documentation. Please respond to the clarification below the line at the bottom and electronically sign. The CDI & [facility] Coding staff will review the response and follow-up if needed. Please note: Queries are made part of the Legal Health Record. If you have any questions, please contact the author of this message via ITS. Dear Dr. Brown, CHF is documented in the ED, H&P, Consult. History/Risk Factors: CAD, DM, Morbid obesity, HTN, CKD Clinical Indicators: History of heart failure VS/Pulse OX: BP 131/76, IN 88, RR 20, O2 Sat 100 Treatment: Lasix 80 mg PO TID In your professional opinion, can you please clarify the acuity and type of CHF if known? Chronic Systolic Heart Failure Chronic Diastolic Heart Failure Unable to Determine Other, please specify Chronic Diastolic Heart Failure MTDD
== END 2019-10-12 13:39 | disposition home health service (06) | DRG 872 ==
LOC: EC 12:27 → 5NMEDONC 14:17 → 6NMEDSUR 10-08 11:23
PROVIDERS: ADMIT Internal Medicine; ATTEND Internal Medicine
PROC: 02HV33Z Insertion of Infusion Device into Superior Vena Cava, Percutaneous Approach (ICD-10-PCS; principal; 2019-10-11 08:20)
DX: A41.02 Sepsis due to Methicillin resistant Staphylococcus aureus (principal); Z68.42 Body mass index [BMI] 45.0-49.9, adult; L03.116 Cellulitis of left lower limb; I13.0 Hypertensive heart and chronic kidney disease with heart failure and stage 1 through stage 4 chronic kidney disease, or unspecified chronic kidney disease; E87.2 Acidosis; J96.11 Chronic respiratory failure with hypoxia; I50.32 Chronic diastolic (congestive) heart failure; D63.1 Anemia in chronic kidney disease; L97.522 Non-pressure chronic ulcer of other part of left foot with fat layer exposed; E11.42 Type 2 diabetes mellitus with diabetic polyneuropathy; E11.51 Type 2 diabetes mellitus with diabetic peripheral angiopathy without gangrene; E11.621 Type 2 diabetes mellitus with foot ulcer; E11.628 Type 2 diabetes mellitus with other skin complications; E11.22 Type 2 diabetes mellitus with diabetic chronic kidney disease; N18.3 Chronic kidney disease, stage 3 (moderate); E66.01 Morbid (severe) obesity due to excess calories; J44.9 Chronic obstructive pulmonary disease, unspecified; I25.10 Atherosclerotic heart disease of native coronary artery without angina pectoris; E78.5 Hyperlipidemia, unspecified; M19.90 Unspecified osteoarthritis, unspecified site; I69.328 Other speech and language deficits following cerebral infarction; K21.9 Gastro-esophageal reflux disease without esophagitis; M10.9 Gout, unspecified; M54.5 Low back pain; G89.29 Other chronic pain; F32.9 Major depressive disorder, single episode, unspecified; G47.33 Obstructive sleep apnea (adult) (pediatric); I25.2 Old myocardial infarction; Z79.4 Long term (current) use of insulin; Z79.899 Other long term (current) drug therapy; Z79.82 Long term (current) use of aspirin; Z87.01 Personal history of pneumonia (recurrent); Z87.19 Personal history of other diseases of the digestive system; Z86.718 Personal history of other venous thrombosis and embolism; Z98.890 Other specified postprocedural states; Z98.51 Tubal ligation status; Z89.421 Acquired absence of other right toe(s); Z87.891 Personal history of nicotine dependence; Z88.5 Allergy status to narcotic agent; Z83.3 Family history of diabetes mellitus; Z83.49 Family history of other endocrine, nutritional and metabolic diseases; Z99.81 Dependence on supplemental oxygen; Z71.3 Dietary counseling and surveillance; Z80.8 Family history of malignant neoplasm of other organs or systems; Z80.3 Family history of malignant neoplasm of breast
CPT/HCPCS: 36415; 36573; 78315; 80048; 80053; 80202; 82565; 83605; 85025; 85610; 85730; 87040; 87070; 87077; 87186; 87205; 93005; 99285

== ENCOUNTER 2020-01-07 15:01 | Inpatient (IN) | payer MEDICARE ==
[2020-01-07] MEDS ORDERED: SODIUM CHLORIDE 0.9% 1,000 ML IV STA ×2 (15:54)
[2020-01-07] MEDS ORDERED: VANCOMYCIN IV PER PHARMACY 1 EACH MISC MISCELLANE PRN (16:21)
[2020-01-07] MEDS ORDERED: PIPERACILLIN-TAZOBACTAM 3.375 GM in SODIUM CHLORIDE 0.9% 100 ML IVPB STA (16:21)
[2020-01-07 16:23] LABS: Basophils # (A) 0.1 k/uL (0-0.2); Basophils % (A) 1 %; Eosinophils # (A) 0.1 k/uL (0-0.7); Eosinophils % (A) 1 %; HCT 31.3 % (34.0-46.0); HGB 9.7 gm/dL (11.4-16.0); Hypochromasia Slight; Lymphocytes # (A) 1.5 k/uL (1.0-4.8); Lymphocytes % (A) 13 %; MCH 27.8 pg (25.0-35.0); MCHC 31.1 g/dL (31.0-37.0); MCV 89.3 fL (80.0-100.0); Mean Platelet Volume 8.1; Monocytes # (A) 0.7 k/uL (0-1.0); Monocytes % (A) 6 %; Neutrophils # (A) 8.8 k/uL (1.3-7.7); Neutrophils % (A) 77 %; Platelet Count 366 k/uL (150-450); RBC 3.51 m/uL (3.80-5.40); RDW 15.9 % (11.5-15.5); WBC 11.4 k/uL (3.8-10.6)
--- NOTE | 2020-01-07 16:29 | XR ---
EXAMINATION TYPE: XR foot complete LT DATE OF EXAM: 01/07/2020 COMPARISON: NONE HISTORY: Pain TECHNIQUE: 3 views of the left ankle are submitted for evaluation. FINDINGS: There is no evidence for fracture or dislocation. Ankle mortise is intact. Soft tissue woun d great toe. No evidence for osteomyelitis. Degenerative changes. IMPRESSION: 1. No evidence for acute fracture.
[2020-01-07 16:36] LABS: Albumin 3.5 g/dL (3.5-5.0); C Reactive Protein 40.4 mg/L (<10.0); Calcium 8.9 mg/dL (8.4-10.2); Potassium 4.8 mmol/L (3.5-5.1); Total Bilirubin 0.2 mg/dL (0.2-1.3); Total Protein 7.3 g/dL (6.3-8.2)
--- NOTE | 2020-01-07 16:55 | ED ---
Extremity Problem HPI - General Chief complaint: Extremity Problem,Nontraumatic Stated complaint: ulcer on foot Time Seen by Provider: 01/07/20 15:32 Source: patient, RN notes reviewed, old records reviewed Mode of arrival: ambulatory Limitations: no limitations - History of Present Illness Initial comments: Patient is a 59-year-old female history of diabetes and hypertension presents emergency department today sent from Dr. Oliver's office with complaint of failed outpatient treatment cellulitis to left foot. Patient has a wound over the left great toe. Patient reports that she's been on antibiotics with Ceftin for this. She has been close to finish the antibiotic at this time but when she followed up with Dr. Oliver was concerned that the cellulitis is no spreading up to the dorsum of the foot and sent her in for IV antibiotics. Patient reports that she's previously seen Dr. Buckner For infectious disease. - Related Data Home Medications Medication Instructions Recorded Confirmed RX: Baclofen [Lioresal] 20 mg PO BID 08/13/17 10/06/19 RX: Omeprazole 20 mg PO BID 08/13/17 10/06/19 RX: Allopurinol [Zyloprim] 300 mg PO DAILY 12/26/17 10/06/19 RX: Cetirizine HCl 10 mg PO DAILY 12/26/17 10/06/19 RX: Ergocalciferol (Vitamin D2) 1 cap PO Q30D 12/26/17 10/06/19 [Vitamin D2] RX: Ferrous Sulfate [Feosol] 325 mg PO DAILY 12/26/17 10/06/19 RX: HYDROcodone/APAP 7.5-325MG 1 tab PO DAILY PRN 12/26/17 10/06/19 [[place] 7.5-325] RX: Isosorbide Mononitrate 30 mg PO DAILY 12/26/17 10/06/19 [Isosorbide Mononitrate ER] RX: Metolazone [Zaroxolyn] 2.5 mg PO MOFR 12/26/17 10/06/19 RX: Metoprolol Tartrate [Lopressor] 50 mg PO BID 12/26/17 10/06/19 RX: Ondansetron HCl [Zofran] 8 mg PO Q8H PRN 12/26/17 10/06/19 RX: Pregabalin [Lyrica] 300 mg PO BID 12/26/17 10/06/19 RX: Spironolactone [Aldactone] 25 mg PO DAILY 12/26/17 10/06/19 RX: Venlafaxine HCl [Effexor XR] 150 mg PO DAILY 12/26/17 10/06/19 RX: Albuterol Sulfate [Proair Hfa] 2 puff INHALATION RT-QID PRN 10/06/1910/05 RX: Aspirin EC [Ecotrin Low Dose] 81 mg PO DAILY 10/06/19 10/06/19 RX: Budesonide [Pulmicort 1 puff INHALATION RT-BID 10/06/19 10/06/19 Flexhaler] RX: Dulaglutide [Trulicity] 1.5 mg SQ FR 10/06/19 10/06/19 RX: Insulin Glargine,Hum.rec.anlog 90 unit SQ HS 10/06/19 10/06/19 [Lantus Solostar] RX: Insulin Glargine,Hum.rec.anlog 120 unit SQ DAILY 10/06/19 10/06/19 [Lantus Solostar] RX: Insulin Lispro [humaLOG See Protocol SQ AC-TID 10/06/19 10/06/19 Kwikpen] RX: Magnesium Oxide [Mag-Ox] 400 mg PO TID 10/06/19 10/06/19 RX: Pravastatin Sodium [Pravachol] 20 mg PO DAILY 10/06/19 10/06/19 RX: Prochlorperazine [Compazine] 10 mg PO DAILY PRN 10/06/19 10/06/19 RX: busPIRone HCl [Buspar] 10 mg PO BID 10/06/19 10/06/19 Previous Rx's Medication Instructions Recorded RX: Folic Acid 1 mg PO DAILY 30 Days #30 tab 10/12/19 RX: Insulin Lispro [humaLOG 40 unit SQ AC-TID #0 10/12/19 Kwikpen] Allergies Allergy/AdvReac Type Severity Reaction Status Date / Time codeine AdvReac headache Verified 01/07/20 15:16 Review of Systems ROS Statement: Those systems with pertinent positive or pertinent negative responses have been documented in the HPI. ROS Other: All systems not noted in ROS Statement are negative. Past Medical History Past Medical History: Coronary Artery Disease (CAD), Heart Failure, COPD, CVA/TIA, Diabetes Mellitus, Deep Vein Thrombosis (DVT), GERD/Reflux, GI Bleed, Hyperlipidemia, Hypertension, Myocardial Infarction (MS), Osteoarthritis (OA), Pneumonia, Renal Disease, Respiratory Disorder, Skin Disorder, Sleep Apnea/CPAP/BIPAP, Vascular Disorder Additional Past Medical History / Comment(s): IDDM type II, neuropathy bilateral feet up to knees and in hands and on stomach, PVD, past R toe wound/debridements and amputation, current L great toe ulcer/cellulitis-debridements, CVA with speech changes if tired, blood clot in aorta per pt-was sent to [facility] but states she never learned any more about it, past DVT R leg with surgical removal, home oxygen at 3L/NC ATC, CKD stage III, chronic anemia with blood and iron transfusions, lower GI bleed-source unknown, SKYLAR-pt does not use device, chronic low back pain, arthritis in multiple joints, 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 Last Myocardial Infarction Date:: 2004?? History of Any Multi-Drug Resistant Organisms: MRSA Date of last positivie culture/infection: 10/06/19 MDRO Source:: MRSA FOOT Past Surgical History: Bladder Surgery, Heart Catheterization, Orthopedic Surgery, Tubal Ligation Additional Past Surgical History / Comment(s): R foot toe debridements/right 2nd toe amputation, L toe wound debridement, bladder suspension, sweat glands removed under arms, EGD/colonoscopies/endoscopic capsule, surgery for deviated septum, peripheral procedure to remove DVT in R leg. Past Anesthesia/Blood Transfusion Reactions: No Reported Reaction Past Psychological History: Anxiety, Depression Smoking Status: Former smoker - Past Family History Father Family Medical History: Diabetes Mellitus Additional Family Medical History / Comment(s): father is . Mother Family Medical History: Cancer, Thyroid Disorder Additional Family Medical History / Comment(s): Mother had breast cancer twice and thyroid cancer. She is still living. General Exam - General Exam Comments Initial Comments: 59-year-old female. Alert and oriented 3. Limitations: no limitations Head exam: Present: atraumatic, normocephalic, normal inspection Eye exam: Present: normal appearance, PERRL, EOMI. Absent: scleral icterus, conjunctival injection, periorbital swelling ENT exam: Present: normal exam, mucous membranes moist Neck exam: Present: normal inspection. Absent: tenderness, meningismus, lymphadenopathy Respiratory exam: Present: normal lung sounds bilaterally. Absent: respiratory distress, wheezes, rales, rhonchi, stridor Cardiovascular Exam: Present: regular rate, normal rhythm, normal heart sounds. Absent: systolic murmur, diastolic murmur, rubs, gallop, clicks GI/Abdominal exam: Present: soft, normal bowel sounds. Absent: distended, tenderness, guarding, rebound, rigid Extremities exam: Present: normal inspection, full ROM, normal capillary refill. Absent: tenderness, pedal edema, joint swelling, calf tenderness Left Lower Leg exam: Present: normal inspection, full ROM Ankle exam: Present: normal inspection, full ROM Foot/Toe exam: Present: full ROM, abrasion, erythema (Over the dorsum of the foot extending from the left great toe.). Absent: normal inspection (Patient has a 2 cm x 3 cm wound over the lateral aspect of the left great toe. There is some purulent drainage which is cultured. Cellulitis around the wound site from the great toe and the dorsum of the foot.) Neurovascular tendon exam: Present: no vascular compromise ( is palpable dorsalis pedis pulse.) Gait: observed and limited by pain Back exam: Present: normal inspection Neurological exam: Present: alert, oriented X3, CN II-XII intact Psychiatric exam: Present: normal affect, normal mood Skin exam: Present: warm, dry, intact, normal color. Absent: rash Course Vital Signs 01/07/20 15:13 Temperature 98.5 F Pulse Rate 76 Respiratory 16 Rate Blood Pressure 105/49 O2 Sat by Pulse 94 L Oximetry Medical Decision Making - Medical Decision Making 59-year-old female with history of diabetes peripheral neuropathy presents emergency department for failed outpatient treatment of left great toe wound infection, cellulitis. She was sent by Dr. Oliver. She does have dorsalis pedis pulse. On exam she does have some surrounding erythema on the great toe extending into the dorsum of the foot. She's been taking Ceftin for the past week with no relief of symptoms. Patient was started on IV fluids, started on Zosyn and vancomycin. X-rays completed and shows no evidence of osteomyelitis. At this time Patient will be admitted with consult to infectious disease Dr. Swanson. Wound culture was obtained and blood culture obtained. . Discussed the case with Dr. Chase. - Lab Data Result diagrams: 01/07/20 16:11 01/07/20 16:11 Lab Results 01/07/20 01/07/20 01/07/20 Range/Units 16:11 16:11 16:11 WBC 11.4 H (3.8-10.6) k/uL RBC 3.51 L (3.80-5.40) m/uL Hgb 9.7 L (11.4-16.0) gm/dL Hct 31.3 L (34.0-46.0) % MCV 89.3 (80.0-100.0) fL MCH 27.8 (25.0-35.0) pg MCHC 31.1 (31.0-37.0) g/dL RDW 15.9 H (11.5-15.5) % Plt Count 366 (150-450) k/uL Neutrophils % 77 % Lymphocytes % 13 % Monocytes % 6 % Eosinophils % 1 % Basophils % 1 % Neutrophils # 8.8 H (1.3-7.7) k/uL Lymphocytes # 1.5 (1.0-4.8) k/uL Monocytes # 0.7 (0-1.0) k/uL Eosinophils # 0.1 (0-0.7) k/uL Basophils # 0.1 (0-0.2) k/uL Hypochromasia Slight Sodium 138 (137-145) mmol/L Potassium 4.8 (3.5-5.1) mmol/L Chloride 100 (98-107) mmol/L Carbon Dioxide 31 H (22-30) mmol/L Anion Gap 7 mmol/L BUN 47 H (7-17) mg/dL Creatinine 1.56 H (0.52-1.04) mg/dL Est GFR (CKD-EPI)AfAm 41 (>60 ml/min/1.73 sqM) Est GFR (CKD-EPI)NonAf 36 (>60 ml/min/1.73 sqM) Glucose 140 H (74-99) mg/dL Plasma Lactic Acid Marshall 1.4 (0.7-2.0) mmol/L Calcium 8.9 (8.4-10.2) mg/dL Total Bilirubin 0.2 (0.2-1.3) mg/dL AST 22 (14-36) U/L ALT 16 (4-34) U/L Alkaline Phosphatase 103 (38-126) U/L C-Reactive Protein 40.4 H (<10.0) mg/L Total Protein 7.3 (6.3-8.2) g/dL Albumin 3.5 (3.5-5.0) g/dL Disposition Clinical Impression: Cellulitis, Type 2 diabetes mellitus, Ulcer of left foot due to type 2 diabetes mellitus, Failure of outpatient treatment Disposition: ADMITTED IP TO THIS [facility] Condition: Stable Is patient prescribed a controlled substance at d/c from ED?: No Referrals: Richa Lopez MD [Primary Care Provider] - 1-2 days Time of Disposition: 17:42
[2020-01-07] MEDS ORDERED: VANCOMYCIN 2,000 MG in SODIUM CHLORIDE 0.9% 500 ML 500 ML IVPB ONE (17:00)
[2020-01-07] MEDS ORDERED: ACETAMINOPHEN TAB 325 MG TAB PO PRN (17:43)
[2020-01-07] MEDS ORDERED: IBUPROFEN 400 MG TAB PO PRN (17:43)
[2020-01-07] MEDS ORDERED: NALOXONE 0.4 MG/ML 1 ML VIAL IV PRN (17:43)
[2020-01-07] MEDS ORDERED: ONDANSETRON 4 MG/2 ML VIAL IVP PRN (17:43)
[2020-01-07] MEDS ORDERED: Acetaminophen-Codeine 300-30mg TAB PO PRN (17:43)
[2020-01-07] MEDS ORDERED: ALBUTEROL NEBULIZED 2.5 MG/3 ML INHALATION PRN (19:59)
[2020-01-07] MEDS ORDERED: BACLOFEN 10 MG TAB PO PRN (19:59)
[2020-01-07] MEDS ORDERED: ALPRAZolam 0.25 MG TAB PO PRN (20:01)
[2020-01-07] MEDS ORDERED: TEMAZEPAM 15 MG CAP PO PRN (20:01)
[2020-01-07] MEDS ORDERED: NON FORMULARY DRUG (Omeprazole [Omeprazole] 20 MG) PO SCH (21:00)
[2020-01-07] MEDS ORDERED: INSULIN REGULAR 100 UNIT/ML VIAL SQ SCH (21:00)
[2020-01-07 21:08] LABS: Glucose,Whole Blood 148 mg/dL (75-99)
--- NOTE | 2020-01-07 21:49 | HP ---
HISTORY AND PHYSICAL DATE OF SERVICE: 01/07/2020 CHIEF COMPLAINT: Ulcer of the left big toe. HISTORY OF PRESENT ILLNESS: This 59-year-old woman with a past medical history of multiple medical problems including history of CAD, CHF, COPD, CVA, TIA, diabetes type 2, hypertension, hyperlipidemia, history of myocardial infarction, history of pneumonia, being followed by John in the outpatient setting, was complaining of ulcer of the left big toe. The patient apparently had an ulcer for the last 6 months on and off. Dr. Payne is following the patient closely. The patient also had a PICC line and antibiotic treatment for six weeks, MRSA was grown on the culture. Dr. Buckner has seen the patient previously. There is no history of fever, rigors. No history of headache, loss of consciousness, seizures. PAST MEDICAL: History of CAD, history of CHF, COPD, CVA, TIA, diabetes type 2, DVT, GERD, GI bleed, hypertension, myocardial infarction. HOME MEDICATIONS: 1. Insulin, Novolin R, Novolin NPH insulin. 2. Zaroxolyn 5 mg p.o. Friday, Friday. 3. Folic acid 1 mg p.o. daily. 4. Buspirone 22.5 mg p.o. b.i.d. 5. Baclofen 10 mg p.o. t.i.d. p.r.n. 6. Ceftin 500 mg p.o. b.i.d. 7. Iron sulfate 325 mg p.o. daily. 8. Zithromax. 9. ProAir HFA 2 puffs q.i.d. p.r.n. 10.Effexor XR 150 mg p.o. daily. 11.Aldactone 25 mg p.o. daily. 12.Lyrica 300 mg p.o. b.i.d. 13.Pravachol 20 mg p.o. daily. 14.Omeprazole 20 mg p.o. b.i.d. 15.Lopressor 50 mg p.o. b.i.d. 16.Imdur 30 mg p.o. daily. 17.Folic acid 1 mg p.o. daily. 18.Vitamin D2 one capsule p.o. q30 days. 19.Trulicity 1.5 mg subcu Friday. 20.Ecotrin 81 mg. 21.Zyloprim 300 mg p.o. daily. ALLERGIES: CODEINE. FAMILY HISTORY: History of diabetes in the family. SOCIAL HISTORY: Previous history of smoking. No history of alcohol intake. REVIEW OF SYSTEMS: ENT No history of diminished hearing or vision. CARDIOVASCULAR No angina or palpitations. Otherwise, as mentioned earlier. RESPIRATORY No cough, no hemoptysis. GI No nausea, vomiting, or diarrhea. No dysuria or hematuria. NERVOUS No numbness or weakness. ALLERGY/IMMUNOLOGY No asthma or hayfever. MUSCULOSKELETAL As mentioned earlier. HEMATOLOGY/ONCOLOGY Anemia. ENDOCRINE Diabetes. CONSTITUTIONAL As mentioned earlier. DERMATOLOGY Negative. RHEUMATOLOGY Negative, PSYCHIATRY As mentioned earlier. PHYSICAL EXAM: Alert and oriented x3. Pulse 76, blood pressure 105/49, respiration 16, temperature 98.4, pulse ox 94% on room air. skin: Conjunctivae normal. Oral mucosa moist neck is no HEENT: Conjunctivae normal. Oral mucosa moist. NECK: No jugular venous distention. No lymph node enlargement. CARDIOVASCULAR: S1, S2, muffled. No S3 or S4. RESPIRATORY: Diminished breath sounds at the bases. A few rhonchi, no crackles. ABDOMEN: Soft, obese, nontender. No mass palpable. LEGS: Minimal bilateral leg edema. Peripheral neuropathy present. Otherwise, significant ulceration of the left big toe also present. NERVOUS SYSTEM: No focal motor but sensory neuropathy present. LYMPHATICS: No lymph node in neck or axilla. SKIN: No rash. JOINTS: No active deforming arthropathy. LABS: WBC 11.2, hemoglobin 9.7, sodium 130, potassium 4.2 creatinine is 1.56. ASSESSMENT: 1. Left big toe ulcer and nonhealing recurrent ulcer, rule out osteomyelitis. 2. History of coronary artery disease. 3. History of congestive heart failure. 4. History of chronic obstructive pulmonary disease. 5. History of cerebrovascular accident, transient ischemic attack. 6. Diabetes mellitus type 2. 7. Peripheral neuropathy. 8. History of deep vein thrombosis. 9. History of gastroesophageal reflux disease. 10.History of gastrointestinal bleed. 11.Hypertension. 12.Hyperlipidemia. 13.History of myocardial infarction. 14.History of degenerative joint disease. 15.History of pneumonia. 16.History of sleep apnea. 17.History of previous left great toe ulcer and PICC line and treatment. 18.History of chronic hypoxic respiratory failure. 19.History of obstructive sleep apnea. 20.History of MRSA. 21.History of anxiety, depression. 22.Obesity with body mass index of 45.9. 23.FULL CODE. RECOMMENDATIONS AND DISCUSSION: In this 59-year-old woman who presented with multiple complex medical issues, we will monitor the patient closely, continue the current management and continue symptomatic treatment. I recommend broad-spectrum IV antibiotics, cultures, Infectious Disease evaluation, bone scan, possible PICC line, vancomycin. Otherwise, resume the home medications. Guarded prognosis because of multiple complex medical issues. Further recommendations to follow. MMODL / IJN: [id number] /
[2020-01-07] MEDS ORDERED: INSULIN NPH 300 UNIT/3 ML VIAL SQ SCH (22:00)
[2020-01-07 22:22] LABS: Glucose,Whole Blood 159 mg/dL (75-99)
[2020-01-07] MEDS: NON FORMULARY DRUG (Dulaglutide [Trulicity] 1.5 MG) SQ SCH (22:30)
[2020-01-07] MEDS: HEPARIN SODIUM,PORCINE 5,000 UNIT/ML 1 ML VIAL SQ SCH (22:39)
[2020-01-07] MEDS: busPIRone HCl 5 MG TAB PO SCH (22:40)
[2020-01-07] MEDS: busPIRone HCl 10 MG TAB PO SCH (22:40)
[2020-01-07] MEDS: INSULIN ASPART (NovoLOG) 100 UNIT/ML VIAL SQ SCH (22:41)
[2020-01-07] MEDS: METOPROLOL TARTRATE 50 MG TAB PO SCH (22:41)
[2020-01-07] MEDS: PREGABALIN 100 MG CAP PO SCH (22:41)
[2020-01-07] MEDS: PIPERACILLIN-TAZOBACTAM 3.375 GM in SODIUM CHLORIDE 0.9% 100 ML IVPB SCH (23:52)
[2020-01-08 02:07] LABS: Appearance,Urine Clear (Clear); Bilirubin,Urine Negative (Negative); Blood,Urine Negative (Negative); Color,Urine Light Yellow; Glucose,Urine (UA) Negative (Negative); Ketones,Urine Negative (Negative); Leukocyte Esterase,Urine Negative (Negative); Nitrite,Urine Negative (Negative); Protein,Urine Negative (Negative); Specific Gravity,Urine 1.011 (1.001-1.035); Urobilinogen,Urine <2.0 mg/dL (<2.0)
[2020-01-08 06:52] LABS: Glucose,Whole Blood 257 mg/dL (75-99)
[2020-01-08] MEDS: ALLOPURINOL 300 MG TAB PO SCH (07:37)
[2020-01-08] MEDS: PREGABALIN 100 MG CAP PO SCH ×2 (07:37→21:20)
[2020-01-08] MEDS: busPIRone HCl 5 MG TAB PO SCH ×2 (07:37→21:20)
[2020-01-08] MEDS: SPIRONOLACTONE 25 MG TAB PO SCH (07:38)
[2020-01-08] MEDS: ISOSORBIDE MONONITRATE ER 30 MG TAB.ER.24H PO SCH (07:38)
[2020-01-08] MEDS: PRAVASTATIN SODIUM 20 MG TAB PO SCH (07:38)
[2020-01-08] MEDS: METOPROLOL TARTRATE 50 MG TAB PO SCH ×2 (07:38→21:20)
[2020-01-08] MEDS: ASPIRIN 81 MG PO SCH (07:38)
[2020-01-08] MEDS: FOLIC ACID 1 MG TAB PO SCH (07:39)
[2020-01-08] MEDS: busPIRone HCl 10 MG TAB PO SCH ×2 (07:39→21:20)
[2020-01-08] MEDS: FERROUS SULFATE 325 MG TAB PO SCH (07:39)
[2020-01-08] MEDS: VENLAFAXINE HCL ER 150 MG CAP PO SCH (07:40)
[2020-01-08] MEDS: HEPARIN SODIUM,PORCINE 5,000 UNIT/ML 1 ML VIAL SQ SCH ×2 (07:41→21:21)
[2020-01-08] MEDS: PIPERACILLIN-TAZOBACTAM 3.375 GM in SODIUM CHLORIDE 0.9% 100 ML IVPB SCH (07:41)
[2020-01-08] MEDS: PANTOPRAZOLE 40 MG/10 ML VIAL IV SCH (07:41)
[2020-01-08] MEDS: INSULIN ASPART (NovoLOG) 100 UNIT/ML VIAL SQ SCH ×4 (07:42→20:48)
[2020-01-08 08:12] LABS: Basophils # (A) 0.1 k/uL (0-0.2); Basophils % (A) 1 %; Eosinophils # (A) 0.1 k/uL (0-0.7); Eosinophils % (A) 1 %; HCT 30.8 % (34.0-46.0); HGB 9.4 gm/dL (11.4-16.0); Hypochromasia Moderate; Lymphocytes # (A) 1.3 k/uL (1.0-4.8); Lymphocytes % (A) 16 %; MCH 27.5 pg (25.0-35.0); MCHC 30.4 g/dL (31.0-37.0); MCV 90.5 fL (80.0-100.0); Mean Platelet Volume 7.9; Monocytes # (A) 0.5 k/uL (0-1.0); Monocytes % (A) 7 %; Neutrophils # (A) 5.7 k/uL (1.3-7.7); Neutrophils % (A) 73 %; Platelet Count 301 k/uL (150-450); RBC 3.41 m/uL (3.80-5.40); RDW 15.7 % (11.5-15.5); WBC 7.8 k/uL (3.8-10.6)
[2020-01-08 08:29] LABS: Calcium 8.7 mg/dL (8.4-10.2); Potassium 4.8 mmol/L (3.5-5.1)
[2020-01-08 11:34] LABS: Glucose,Whole Blood 361 mg/dL (75-99)
[2020-01-08] MEDS: VANCOMYCIN 2,000 MG in SODIUM CHLORIDE 0.9% 500 ML 500 ML IVPB SCH ×2 (11:54→12:39)
[2020-01-08] MEDS: INSULIN REGULAR 100 UNIT/ML VIAL SQ SCH ×3 (13:29→20:49)
[2020-01-08 16:49] LABS: Glucose,Whole Blood 163 mg/dL (75-99)
[2020-01-08] MEDS: metroNIDAZOLE 500 MG TAB PO SCH ×2 (16:51→21:20)
[2020-01-08 20:36] LABS: Glucose,Whole Blood 67 mg/dL (75-99)
[2020-01-08] MEDS: INSULIN NPH 300 UNIT/3 ML VIAL SQ SCH (20:48)
[2020-01-08 20:56] LABS: Glucose,Whole Blood 63 mg/dL (75-99)
[2020-01-08] MEDS ORDERED: INSULIN NPH 300 UNIT/3 ML VIAL SQ SCH (21:00)
--- NOTE | 2020-01-08 21:00 | NM ---
EXAMINATION TYPE: NM bone 3 phase DATE OF EXAM: 01/08/2020 COMPARISON: 10/07/2019 bone scan HISTORY: Wound on the plantar left big toe. Triple phase bone scintigraphy was performed following the injection of 24.7 mCi Tc 99m MDP. Immedia te images and 5 hours post injection images acquired. FINDINGS: The flow study shows some mild hyperemia of the left foot compared to the right. The blood pool images show persistent hyperemia in the region of the distal left first toe. This wendy ent has hallux valgus and the left big toe is in line with the second metatarsal.. Delayed images als o show increased uptake in the region of the distal left big toe. The lateral view shows focal increa sed uptake in the region of the distal phalanx of the left big toe. IMPRESSION: There is increased blood flow and delayed uptake in the distal left big toe. This is a similar patter n to the previous bone scan. The foot x-ray obtained yesterday does not show any significant bone jordan truction. There is no convincing evidence for osteomyelitis in view of the stable bone scan appearanc e over 3 month period And lack of any significant bone destruction on the x-ray. This could be [place] of some arthritic disease.
[2020-01-08 21:27] LABS: Glucose,Whole Blood 79 mg/dL (75-99)
--- NOTE | 2020-01-08 21:47 | PN ---
PROGRESS NOTE DATE OF SERVICE: 01/08/2020 This 59-year-old woman who was admitted with a left big toe also had recently finished a six week course of IV antibiotics with a PICC line. The previous cultures are showing MRSA and strep agalactiae. No chest pain. No palpitations. No fever. REVIEW OF SYSTEMS: CARDIOVASCULAR SYSTEM: No angina. RESPIRATORY: As mentioned earlier. GI: As mentioned earlier. : No dysuria. NERVOUS SYSTEM: No numbness or weakness. CURRENT MEDICATIONS: 1. Tylenol No.3. 2. Ventolin. 3. Zyloprim. 4. Xanax. 5. Aspirin. 6. Lioresal. 7. BuSpar. 8. Vitamin D2. 9. Iron sulfate. 10.Folic acid. 11.Heparin. 12.Novolin N 20 units subcu b.i.d. R 55 subcu q.h.s. 13.Imdur 30 mg daily. 14.Zaroxolyn. 15.Lopressor. 16.Flagyl. 17.Narcan. 18.Zofran. 19.Protonix. 20.Lyrica. 21.Aldactone. 22.Vancomycin. EXAM: Alert and oriented x3. Pulse 65, blood pressure 147/74, respirations 16, temperature 97.5, pulse ox 98% on 3 L. HEENT: Conjunctivae normal. Oral mucosa moist. NECK: No jugular venous distention. No lymph node enlargement. CARDIOVASCULAR: S1, S2, muffled. No S3, no S4, RESPIRATORY: Diminished breath sounds at the bases. No rhonchi, no crackles. ABDOMEN: Soft, nontender. Left foot big toe ulcer present. NERVOUS SYSTEM: No focal deficits. LABS: Creatinine 1.36, glucose 361. Hemoglobin is 9.4. ASSESSMENT: 1. Left big toe ulcer with nonhealing recurrent ulcer, rule out osteomyelitis. 2. History of coronary artery disease. 3. Diabetes type 2 uncontrolled with hyperglycemia. 4. History of recent PICC line and prolonged IV antibiotic course. 5. History of MRSA and Streptococcus agalactiae from the culture. 6. History of congestive heart failure. 7. History of chronic obstructive pulmonary disease. 8. History of cerebrovascular accident, transient ischemic attack. 9. Diabetes type 2. 10.Peripheral neuropathy. 11.History of deep venous thrombosis. 12.History of gastroesophageal reflux disease. 13.History of gastrointestinal bleed. 14.Hypertension. 15.Hyperlipidemia. 16.History of myocardial infarction. 17.History of degenerative joint disease. 18.History of pneumonia. 19.History of sleep apnea. 20.History of previous left great toe ulcer and PICC line placement. 21.History of chronic hypoxic respiratory failure. 22.History of obstructive sleep apnea. 23.History anxiety, depression. 24.Obesity with body mass index for 45.9. 25.FULL CODE. RECOMMENDATIONS AND DISCUSSION: In this 59-year-old woman who presented with multiple medical issues, we will monitor the patient closely. A bone scan has been requested. Also recommend evaluation with Infectious Disease. I would recommend monitoring the blood sugars and adjust the home medications. Also recommend hemoglobin A1c. The overall prognosis is extremely guarded because of multiple complex medical issues. Further recommendations to follow. [id number] / IJN: [id number] /
[2020-01-08 22:49] LABS: Glucose,Whole Blood 128 mg/dL (75-99)
--- NOTE | 2020-01-09 01:35 | P.CONS ---
History of Present Illness - Reason for Consult Consult date: 01/08/20 left big toe ulcer and cellulitis Requesting physician: Violet Ballard - Chief Complaint Left big toe ulcer swelling and redness x few days - History of Present Illness Patient is a 59 year female with a past medical history significant for diabetes mellitus who was admitted to this facility back in September 2019 with left big toe ulcer and cellulitis culture at that time were positive for MRSA and the patient's complicated 6 weeks of IV vancomycin therapy patient recently did have a closure for wound however apparently the patient did have reopening of her wound and the patient was here was that by the home care nurse noticed to having swelling and redness spreading on the dorsum aspect of the left foot for the patient was sent to reevaluated by Dr. Oliver who saw the patient on Friday and subsequently advised admission to the hospital, on arrival to the area patient has been afebrile patient did have x-rays of the left foot which did not show any bony changes or fracture patient did have local wound cultures obtained she has been started on vancomycin and Zosyn admitted to the hospital and infectious disease was consulted for further management of antibiotic therapy Patient currently denies having any fever or any chills. Complained of some dull aching pain to the left foot area intensity to 3 out of 10 and no radiation patient did have swelling and redness that seemed to have extended to the dorsum of the left foot though has regressed from the line that was placed in the ER she did have slight drainage from it but no foul-smelling drainage Review of Systems Positive point has been mentioned in the HPI rest of the systems are negative Past Medical History Past Medical History: Coronary Artery Disease (CAD), Heart Failure, COPD, CVA/TIA, Diabetes Mellitus, Deep Vein Thrombosis (DVT), GERD/Reflux, GI Bleed, Hyperlipidemia, Hypertension, Myocardial Infarction ([place]), Osteoarthritis (OA), Pneumonia, Renal Disease, Respiratory Disorder, Skin Disorder, Sleep Apnea/CPAP /BIPAP, Vascular Disorder Additional Past Medical History / Comment(s): IDDM type II, neuropathy bilateral feet up to knees and in hands and on stomach, PVD, past R toe wound/debridements and amputation, current L great toe ulcer/cellulitis-debridements, CVA with speech changes if tired, blood clot in aorta per pt-was sent to [facility] but states she never learned any more about it, past DVT R leg with surgical removal, home oxygen at 3L/NC ATC, CKD stage III, chronic anemia with blood and iron transfusions, lower GI bleed-source unknown, SKYLAR-pt does not use device, chronic low back pain, arthritis in multiple joints, 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 Last Myocardial Infarction Date:: 2004 History of Any Multi-Drug Resistant Organisms: MRSA Year Discovered:: 10/06/19 MDRO Source:: MRSA FOOT Past Surgical History: Bladder Surgery, Heart Catheterization, Orthopedic Surgery, Tubal Ligation Additional Past Surgical History / Comment(s): R foot toe debridements/right 2nd toe amputation, L toe wound debridement, bladder suspension, sweat glands removed under arms, EGD/colonoscopies/endoscopic capsule, surgery for deviated septum, peripheral procedure to remove DVT in R leg. Past Anesthesia/Blood Transfusion Reactions: No Reported Reaction Past Psychological History: Anxiety, Depression Additional Psychological History / Comment(s): Pt resides with her spouse. She uses a rollator walker. She has home oxygen and a glucometer. She has VNA for wound care and someone comes in once a week for housekeeping/showers/shopping. Pt rarely drives, her spouse can drive. Her spouse manages her medications. Smoking Status: Former smoker Past Alcohol Use History: None Reported Additional Past Alcohol Use History / Comment(s): Pt started smoking in 1970 and quit in 2012. Past Drug Use History: None Reported - Past Family History Father Family Medical History: Diabetes Mellitus Additional Family Medical History / Comment(s): father is . Mother Family Medical History: Cancer, Thyroid Disorder Additional Family Medical History / Comment(s): Mother had breast cancer twice and thyroid cancer. She is still living. Medications and Allergies Home Medications Medication Instructions Recorded Confirmed Type Omeprazole 20 mg PO BID 08/13/17 01/07/20 History Allopurinol [Zyloprim] 300 mg PO DAILY 12/26/17 01/07/20 History Ergocalciferol (Vitamin D2) 1 cap PO Q30D 12/26/17 01/07/20 History [Vitamin D2] Ferrous Sulfate [Feosol] 325 mg PO DAILY 12/26/17 01/07/20 History Isosorbide Mononitrate [Isosorbide 30 mg PO DAILY 12/26/17 01/07/20 History Mononitrate ER] Metoprolol Tartrate [Lopressor] 50 mg PO BID 12/26/17 01/07/20 History Pregabalin [Lyrica] 300 mg PO BID 12/26/17 01/07/20 History Spironolactone [Aldactone] 25 mg PO DAILY 12/26/17 01/07/20 History Venlafaxine HCl [Effexor XR] 150 mg PO DAILY 12/26/17 01/07/20 History Albuterol Sulfate [Proair Hfa] 2 puff INHALATION RT-QID PRN 10/06/19 01/07/20 Hi story Aspirin EC [Ecotrin Low Dose] 81 mg PO DAILY 10/06/19 01/07/20 History Dulaglutide [Trulicity] 1.5 mg SQ FR 10/06/19 01/07/20 History Pravastatin Sodium [Pravachol] 20 mg PO DAILY 10/06/19 01/07/20 History Folic Acid 1 mg PO DAILY 30 Days #30 tab 10/12/19 01/07/20 Rx Azithromycin [Zithromax Z-pack] See Taper PO DIRECTED 01/07/20 01/07/20 History Baclofen 10 mg PO TID PRN 01/07/20 01/07/20 History Cefuroxime Axetil [Ceftin] 500 mg PO BID 01/07/20 01/07/20 History Folic Acid 1 mg PO DAILY 01/07/20 01/07/20 History Insulin NPH Human Isophane 20 units SQ Q12H 01/07/20 01/07/20 History [NovoLIN N] Insulin Regular, Human [NovoLIN R] 55 unit SQ ACHS 01/07/20 01/07/20 History Insulin Regular, Human [NovoLIN R] See Protocol SQ [facility] 01/07/20 01/07/20 History Metolazone [Zaroxolyn] 5 mg PO MOFR 01/07/20 01/07/20 History busPIRone HCL 22.5 mg PO BID 01/07/20 01/07/20 History Allergies Allergy/AdvReac Type Severity Reaction Status Date / Time codeine AdvReac headache Verified 01/07/20 18:29 Physical Exam Vitals: Vital Signs Temp Pulse Pulse Resp BP BP Pulse Ox 01/08/20 07:15 16 01/08/20 07:00 98.7 F 61 16 134/52 98 01/08/20 03:58 16 01/08/20 01:58 97.7 F 67 16 154/70 97 01/07/20 22:40 70 143/55 01/07/20 19:35 98.3 F 71 18 127/70 98 01/07/20 15:13 98.5 F 76 16 105/49 94 L Intake and Output 01/07/20 01/08/20 01/08/20 22:59 06:59 14:59 Intake Total 500 Output Total 900 Balance 500 -900 Intake: Intake, IV Titration 500 Amount Vancomycin 2,000 mg In 500 Sodium Chloride 0.9% 500 ml 500 ml @ 167 mls/hr IVPB Q24HR@1200 [facility] Rx#: [id number] Output: Urine 900 Other: Voiding Method Toilet Toilet # Voids 1 1 Weight 117.5 kg 117.5 kg GENERAL DESCRIPTION: Middle-aged female lying in bed, no distress. No tachypnea or accessory muscle of respiration use. HEENT: Shows Pallor , no scleral icterus. Oral mucous membrane is dry. No pharyngeal erythema or thrush NECK: Trachea central, no thyromegaly. LUNGS: Unlabored breathing. Clear to auscultation anteriorly. No wheeze or crackle. HEART: S1, S2, regular rate and rhythm. No loud murmur ABDOMEN: Soft, no tenderness , guarding or rigidity, no organomegaly EXTREMITIES: No edema of feet. Left big toe plantar ulcer with no slough tissue some swelling redness on the dorsum aspect of the left foot no foul-smelling drainage SKIN: No rash, no masses palpable. NEUROLOGICAL: The patient is awake, alert, oriented x3, mood and affect normal. Results CBC & Chem 7: 01/08/20 07:27 01/08/20 07:27 Labs: Abnormal Lab Results - Last 24 Hours (Table) 01/07/20 01/07/20 01/07/20 Range/Units 16:11 16:11 21:07 WBC 11.4 H (3.8-10.6) k/uL RBC 3.51 L (3.80-5.40) m/uL Hgb 9.7 L (11.4-16.0) gm/dL Hct 31.3 L (34.0-46.0) % MCHC (31.0-37.0) g/dL RDW 15.9 H (11.5-15.5) % Neutrophils # 8.8 H (1.3-7.7) k/uL Carbon Dioxide 31 H (22-30) mmol/L BUN 47 H (7-17) mg/dL Creatinine 1.56 H (0.52-1.04) mg/dL Glucose 140 H (74-99) mg/dL POC Glucose (mg/dL) 148 H (75-99) mg/dL C-Reactive Protein 40.4 H (<10.0) mg/L 01/07/20 01/08/20 01/08/20 Range/Units 22:19 06:50 07:27 WBC (3.8-10.6) k/uL RBC (3.80-5.40) m/uL Hgb (11.4-16.0) gm/dL Hct (34.0-46.0) % MCHC (31.0-37.0) g/dL RDW (11.5-15.5) % Neutrophils # (1.3-7.7) k/uL Carbon Dioxide (22-30) mmol/L BUN 41 H (7-17) mg/dL Creatinine 1.36 H (0.52-1.04) mg/dL Glucose 248 H (74-99) mg/dL POC Glucose (mg/dL) 159 H 257 H (75-99) mg/dL C-Reactive Protein (<10.0) mg/L 01/08/20 01/08/20 Range/Units 07:27 11:32 WBC (3.8-10.6) k/uL RBC 3.41 L (3.80-5.40) m/uL Hgb 9.4 L (11.4-16.0) gm/dL Hct 30.8 L (34.0-46.0) % MCHC 30.4 L (31.0-37.0) g/dL RDW 15.7 H (11.5-15.5) % Neutrophils # (1.3-7.7) k/uL Carbon Dioxide (22-30) mmol/L BUN (7-17) mg/dL Creatinine (0.52-1.04) mg/dL Glucose (74-99) mg/dL POC Glucose (mg/dL) 361 H (75-99) mg/dL C-Reactive Protein (<10.0) mg/L Microbiology - Last 24 Hours (Table) 01/07/20 16:11 Gram Stain - Preliminary Toe - Left First Wound Culture - Preliminary Assessment and Plan Assessment: 1- patient with a left big toe diabetic foot ulcers with secondary infection in this patient was seen to have similar problem back in September 2019 at that time the patient did show MRSA for the patient has completed an extended course of IV vancomycin therapy now with elevated to the hospital with the opening of the wound and another episode of cellulitis with a question of possible related to MRSA wasn't aware gram-positive skin pineda patient didn't have any fever and initial x-ray did not show any bony changes with concern for possible cellulitis and less likely osteomyelitis (1) Skin ulcer of left great toe with fat layer exposed Current Visit: Yes Status: Acute Code(s): L97.522 - NON-PRS CHRONIC ULCER OTH PRT LEFT FOOT W FAT LAYER EXPOSED SNOMED Code(s): 539442972 (2) Diabetes mellitus with foot ulcer Current Visit: Yes Status: Acute Code(s): E11.621 - TYPE 2 DIABETES MELLITUS WITH FOOT ULCER; L97.509 - NON-PRESSURE CHRONIC ULCER OTH PRT UNSP FOOT W UNSP SEVERITY SNOMED Code(s): 63113690 (3) Cellulitis of left foot Current Visit: Yes Status: Acute Code(s): L03.116 - CELLULITIS OF LEFT LOWER LIMB SNOMED Code(s): 593544012 Plan: 1-Vancomycin pharmacy to dose target trough of 15 while watching his kidney function and Vanco trough closely however discontinue Zosyn to decrease risk of nephrotoxicity and add Flagyl to cover for the anaerobes 2-local wound care with Aquacel silver dressing 3-await bone scan to be finalized We will follow on clinical condition and cultures to further adjust medication if needed Thank you for this consultation will follow this patient with you Time with Patient: Greater than 30
[2020-01-09 06:34] LABS: Glucose,Whole Blood 212 mg/dL (75-99)
[2020-01-09 07:18] LABS: Basophils # (A) 0.1 k/uL (0-0.2); Basophils % (A) 1 %; Eosinophils # (A) 0.2 k/uL (0-0.7); Eosinophils % (A) 2 %; HGB 9.5 gm/dL (11.4-16.0); Hypochromasia Marked; Lymphocytes # (A) 1.3 k/uL (1.0-4.8); Lymphocytes % (A) 18 %; MCH 28.9 pg (25.0-35.0); MCHC 31.5 g/dL (31.0-37.0); MCV 91.8 fL (80.0-100.0); Mean Platelet Volume 7.6; Monocytes # (A) 0.5 k/uL (0-1.0); Monocytes % (A) 7 %; Neutrophils # (A) 5.2 k/uL (1.3-7.7); Neutrophils % (A) 70 %; Platelet Count 296 k/uL (150-450); RBC 3.27 m/uL (3.80-5.40); RDW 15.5 % (11.5-15.5); WBC 7.4 k/uL (3.8-10.6)
[2020-01-09 07:34] LABS: C Reactive Protein 27.8 mg/L (<10.0); Potassium 4.6 mmol/L (3.5-5.1)
[2020-01-09] MEDS: VENLAFAXINE HCL ER 150 MG CAP PO SCH (07:37)
[2020-01-09] MEDS: ALLOPURINOL 300 MG TAB PO SCH (07:37)
[2020-01-09] MEDS: PREGABALIN 100 MG CAP PO SCH ×2 (07:37→21:30)
[2020-01-09] MEDS: FERROUS SULFATE 325 MG TAB PO SCH (07:37)
[2020-01-09] MEDS: busPIRone HCl 10 MG TAB PO SCH ×2 (07:37→21:30)
[2020-01-09] MEDS: PRAVASTATIN SODIUM 20 MG TAB PO SCH (07:38)
[2020-01-09] MEDS: FOLIC ACID 1 MG TAB PO SCH (07:38)
[2020-01-09] MEDS: metroNIDAZOLE 500 MG TAB PO SCH ×3 (07:38→21:30)
[2020-01-09] MEDS: ASPIRIN 81 MG PO SCH (07:38)
[2020-01-09] MEDS: busPIRone HCl 5 MG TAB PO SCH ×2 (07:38→21:29)
[2020-01-09] MEDS: SPIRONOLACTONE 25 MG TAB PO SCH (07:38)
[2020-01-09] MEDS: METOPROLOL TARTRATE 50 MG TAB PO SCH ×2 (07:38→21:29)
[2020-01-09] MEDS: ISOSORBIDE MONONITRATE ER 30 MG TAB.ER.24H PO SCH (07:39)
[2020-01-09] MEDS: INSULIN ASPART (NovoLOG) 100 UNIT/ML VIAL SQ SCH ×4 (07:40→22:32)
[2020-01-09] MEDS: INSULIN REGULAR 100 UNIT/ML VIAL SQ SCH ×4 (07:40→22:27)
[2020-01-09] MEDS: HEPARIN SODIUM,PORCINE 5,000 UNIT/ML 1 ML VIAL SQ SCH ×2 (07:41→21:29)
[2020-01-09] MEDS: PANTOPRAZOLE 40 MG/10 ML VIAL IV SCH (07:43)
[2020-01-09] MEDS: INSULIN NPH 300 UNIT/3 ML VIAL SQ SCH ×2 (08:34→22:27)
[2020-01-09 11:26] LABS: Erythrocyte Sedimentation Rate 107 mm/hr (0-20)
[2020-01-09 11:28] LABS: Glucose,Whole Blood 170 mg/dL (75-99)
[2020-01-09] MEDS: VANCOMYCIN 2,000 MG in SODIUM CHLORIDE 0.9% 500 ML 500 ML IVPB SCH (11:45)
[2020-01-09 17:12] LABS: Glucose,Whole Blood 85 mg/dL (75-99)
[2020-01-09 21:23] LABS: Glucose,Whole Blood 179 mg/dL (75-99)
[2020-01-09 22:21] LABS: Glucose,Whole Blood 145 mg/dL (75-99)
--- NOTE | 2020-01-09 23:40 | PN ---
PROGRESS NOTE DATE OF SERVICE: 01/09/2020 This 59-year-old woman who was admitted with left big toe ulcer did not have any evidence of any osteomyelitis on the bone scan. No chest pain. No palpitations. No fever. Uric acid 6.3. Dr. Buckner is following the patient closely. ESR and CRP are elevated. PHYSICAL EXAMINATION: On exam, alert and oriented x3. The pulse is 64, blood pressure 116/59, respiration 18, temperature 97.9, pulse ox 96% on 3 L. HEENT: Conjunctivae normal. Oral mucosa moist. NECK: No jugular venous distention. CARDIOVASCULAR: S1, S2 muffled. RESPIRATORY: Breath sounds diminished at the bases. A few rhonchi, no crackles. ABDOMEN: Soft. Nontender. LEGS: Left big toe ulcer present. NERVOUS SYSTEM: No focal deficits. LABS: WBC 7.4, hemoglobin 9.5, creatinine is 1.16. ASSESSMENT: 1. Left big toe ulcer with nonhealing recurrent ulcer, rule out osteomyelitis. 2. History of coronary artery disease. 3. Diabetes mellitus type 2 uncontrolled with hyperglycemia. 4. History of recent PICC line and prolonged IV antibiotic course. 5. History of MRSA and Streptococcus agalactiae from the culture. 6. History of congestive heart failure. 7. History of chronic obstructive pulmonary disease. 8. History of cerebrovascular accident, transient ischemic attack. 9. Diabetes mellitus type 2. 10.Peripheral neuropathy. 11.History of deep vein thrombosis. 12.Gastroesophageal reflux disease. 13.History of gastrointestinal bleed. 14.Hypertension. 15.Hyperlipidemia. 16.History of myocardial infarction. 17.History of degenerative joint disease. 18.History of pneumonia. 19.History of sleep apnea. 20.Previous left great toe ulcer and PICC line placement and outpatient antibiotic treatment. 21.History of chronic hypoxic respiratory failure. 22.History of sleep apnea. 23.History of anxiety, depression. 24.Obesity with body mass index of 45.9. 25.FULL CODE. RECOMMENDATIONS AND DISCUSSION: Recommend to continue current medications, continue symptomatic treatment. Otherwise, closely follow with Dr. Buckner outpatient antibiotics. Vascular surgery consultation. Guarded prognosis. Further recommendations to follow. MMODL / IJN: [id number] /
--- NOTE | 2020-01-10 05:28 | PN ---
PROGRESS NOTE DATE OF SERVICE: 01/09/2020 REASON FOR FOLLOWUP: Left big toe diabetic foot infection. INTERVAL HISTORY: The patient is currently afebrile. The patient is breathing comfortably. The patient denies having any chest pain. No shortness of breath or cough. No nausea or vomiting. No abdominal pain or any pain to the left big toe area. Overall redness has decreased. PHYSICAL EXAMINATION: Blood pressure 153/71 with a pulse of 67, temperature 97.9. She is 97% on 3 L nasal cannula. General description is a middle-aged female up in the bed in no distress. RESPIRATORY SYSTEM: Unlabored breathing, clear to auscultation anteriorly. HEART: S1, S2. Regular rate and rhythm. ABDOMEN: Soft, no tenderness. Left foot is currently dressed up, no obvious drainage on the dressing. LABS: Hemoglobin 9.5, white count 7.4, creatinine 1.16. Wound culture currently pending. Blood culture so far negative. Bone scan was not suggestive of osteomyelitis. DIAGNOSTIC IMPRESSION AND PLAN: Patient with chronic nonhealing wound to the left big toe with previous culture positive for MRSA for which the patient completed almost a 6-week course of antibiotic therapy. No re-admitted to the hospital with another episode of cellulitis. Culture at this time is currently pending. Patient to continue with vancomycin and Flagyl. Local care with dry Aquacel dressing and continue supportive care. MMODL / IJN: [id number] /
[2020-01-10 07:06] LABS: Glucose,Whole Blood 249 mg/dL (75-99)
--- NOTE | 2020-01-10 07:10 | P.GSCN ---
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 patient has history of diabetes, history of COPD, history of sleep apnea, history of congestive heart failure On examination patient was seen in her room neck is supple no bruit appreciated Chest first and second sound normal few crackles the lung bases Abdomen is soft nontender Vascular examination brachial radial pulses are present femorals are 1+ PTDP not palpable left foot big toe has a chronic wound on the plantar aspect mild cellulitis on the dorsal suspect the foot patient is under care of infectious disease IV antibiotic and local wound care Plan is patient will be evaluated for left leg angiogram and local wound care follow with you Past Medical History Past Medical History: Coronary Artery Disease (CAD), Heart Failure, COPD, CVA/TIA, Diabetes Mellitus, Deep Vein Thrombosis (DVT), GERD/Reflux, GI Bleed, Hyperlipidemia, Hypertension, Myocardial Infarction ([place]), Osteoarthritis (OA), Pneumonia, Renal Disease, Respiratory Disorder, Skin Disorder, Sleep Apnea/CPAP/BIPAP, Vascular Disorder Additional Past Medical History / Comment(s): IDDM type II, neuropathy bilateral feet up to knees and in hands and on stomach, PVD, past R toe wound/debridements and amputation, current L great toe ulcer/cellulitis-debridements, CVA with speech changes if tired, blood clot in aorta per pt-was sent to [facility] but states she never learned any more about it, past DVT R leg with surgical removal, home oxygen at 3L/NC ATC, CKD stage III, chronic anemia with blood and iron transfusions, lower GI bleed-source unknown, SKYLAR-pt does not use device, chronic low back pain, arthritis in multiple joints, 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 Last Myocardial Infarction Date:: 2004 History of Any Multi-Drug Resistant Organisms: MRSA Year Discovered:: 10/06/19 MDRO Source:: MRSA FOOT Past Surgical History: Bladder Surgery, Heart Catheterization, Orthopedic Surge ry, Tubal Ligation Additional Past Surgical History / Comment(s): R foot toe debridements/right 2nd toe amputation, L toe wound debridement, bladder suspension, sweat glands r emoved under arms, EGD/colonoscopies/endoscopic capsule, surgery for deviated septum, peripheral procedure to remove DVT in R leg. Past Anesthesia/Blood Transfusion Reactions: No Reported Reaction Past Psychological History: Anxiety, Depression Additional Psychological History / Comment(s): Pt resides with her spouse. She u ses a rollator walker. She has home oxygen and a glucometer. She has VNA for wound care and someone comes in once a week for housekeeping/showers/shopping. Pt rarely drives, her spouse can drive. Her spouse manages her medications. Smoking Status: Former smoker Past Alcohol Use History: None Reported Additional Past Alcohol Use History / Comment(s): Pt started smoking in 1970 and quit in 2012. Past Drug Use History: None Reported - Past Family History Father Family Medical History: Diabetes Mellitus Additional Family Medical History / Comment(s): father is . Mother Family Medical History: Cancer, Thyroid Disorder Additional Family Medical History / Comment(s): Mother had breast cancer twice and thyroid cancer. She is still living. Medications and Allergies Home Medications Medication Instructions Recorded Confirmed Type Omeprazole 20 mg PO BID 08/13/17 01/07/20 History Allopurinol [Zyloprim] 300 mg PO DAILY 12/26/17 01/07/20 History Ergocalciferol (Vitamin D2) 1 cap PO Q30D 12/26/17 01/07/20 History [Vitamin D2] Ferrous Sulfate [Feosol] 325 mg PO DAILY 12/26/17 01/07/20 History Isosorbide Mononitrate [Isosorbide 30 mg PO DAILY 12/26/17 01/07/20 History Mononitrate ER] Metoprolol Tartrate [Lopressor] 50 mg PO BID 12/26/17 01/07/20 History Pregabalin [Lyrica] 300 mg PO BID 12/26/17 01/07/20 History Spironolactone [Aldactone] 25 mg PO DAILY 12/26/17 01/07/20 History Venlafaxine HCl [Effexor XR] 150 mg PO DAILY 12/26/17 01/07/20 History Albuterol Sulfate [Proair Hfa] 2 puff INHALATION RT-QID PRN 10/06/19 01/07/20 History Aspirin EC [Ecotrin Low Dose] 81 mg PO DAILY 10/06/19 01/07/20 History Dulaglutide [Trulicity] 1.5 mg SQ FR 10/06/19 01/07/20 History Pravastatin Sodium [Pravachol] 20 mg PO DAILY 10/06/19 01/07/20 History Folic Acid 1 mg PO DAILY 30 Days #30 tab 10/12/19 01/07/20 Rx Azithromycin [Zithromax Z-pack] See Taper PO DIRECTED 01/07/20 01/07/20 History Baclofen 10 mg PO TID PRN 01/07/20 01/07/20 History Cefuroxime Axetil [Ceftin] 500 mg PO BID 01/07/20 01/07/20 History Folic Acid 1 mg PO DAILY 01/07/20 01/07/20 History Insulin NPH Human Isophane 20 units SQ Q12H 01/07/20 01/07/20 History [NovoLIN N] Insulin Regular, Human [NovoLIN R] 55 unit SQ ACHS 01/07/20 01/07/20 History Insulin Regular, Human [NovoLIN R] See Protocol SQ ACHS 01/07/20 01/07/20 History Metolazone [Zaroxolyn] 5 mg PO MOFR 01/07/20 01/07/20 History busPIRone HCL 22.5 mg PO BID 01/07/20 01/07/20 History Allergies Allergy/AdvReac Type Severity Reaction Status Date / Time codeine AdvReac headache Verified 01/07/20 18:29 Surgical - Exam Vital Signs Temp Pulse Resp BP Pulse Ox 98.5 F 76 16 105/49 94 L 01/07/20 15:13 01/07/20 15:13 01/07/20 15:13 01/07/20 15:13 01/07/20 15:13 Results - Labs 01/09/20 06:57 01/09/20 06:57 Abnormal Lab Results - Last 24 Hours (Table) 01/09/20 01/09/20 01/09/20 Range/Units 06:57 06:57 11:26 RBC 3.27 L (3.80-5.40) m/uL Hgb 9.5 L (11.4-16.0) gm/dL Hct 30.0 L (34.0-46.0) % ESR 107 H (0-20) mm/hr Carbon Dioxide 31 H (22-30) mmol/L BUN 33 H (7-17) mg/dL Creatinine 1.16 H (0.52-1.04) mg/dL Glucose 222 H (74-99) mg/dL POC Glucose (mg/dL) 170 H (75-99) mg/dL C-Reactive Protein 27.8 H (<10.0) mg/L 01/09/20 01/09/20 01/10/20 Range/Units 21:21 22:19 07:04 RBC (3.80-5.40) m/uL Hgb (11.4-16.0) gm/dL Hct (34.0-46.0) % ESR (0-20) mm/hr Carbon Dioxide (22-30) mmol/L BUN (7-17) mg/dL Creatinine (0.52-1.04) mg/dL Glucose (74-99) mg/dL POC Glucose (mg/dL) 179 H 145 H 249 H (75-99) mg/dL C-Reactive Protein (<10.0) mg/L Microbiology - Last 24 Hours (Table) 01/07/20 16:11 Gram Stain - Final Toe - Left First Wound Culture - Final 01/07/20 16:11 Blood Culture - Preliminary Blood No Growth after 48 hours Diabetes panel 01/09/20 Range/Units 06:57 Sodium 138 (137-145) mmol/L Potassium 4.6 (3.5-5.1) mmol/L Chloride 103 (98-107) mmol/L Carbon Dioxide 31 H (22-30) mmol/L BUN 33 H (7-17) mg/dL Creatinine 1.16 H (0.52-1.04) mg/dL Glucose 222 H (74-99) mg/dL Calcium 9.0 (8.4-10.2) mg/dL Calcium panel 01/09/20 Range/Units 06:57 Calcium 9.0 (8.4-10.2) mg/dL Pituitary panel 01/09/20 Range/Units 06:57 Sodium 138 (137-145) mmol/L Potassium 4.6 (3.5-5.1) mmol/L Chloride 103 (98-107) mmol/L Carbon Dioxide 31 H (22-30) mmol/L BUN 33 H (7-17) mg/dL Creatinine 1.16 H (0.52-1.04) mg/dL Glucose 222 H (74-99) mg/dL Calcium 9.0 (8.4-10.2) mg/dL Adrenal panel 01/09/20 Range/Units 06:57 Sodium 138 (137-145) mmol/L Potassium 4.6 (3.5-5.1) mmol/L Chloride 103 (98-107) mmol/L Carbon Dioxide 31 H (22-30) mmol/L BUN 33 H (7-17) mg/dL Creatinine 1.16 H (0.52-1.04) mg/dL Glucose 222 H (74-99) mg/dL Calcium 9.0 (8.4-10.2) mg/dL
[2020-01-10] MEDS: INSULIN ASPART (NovoLOG) 100 UNIT/ML VIAL SQ SCH ×4 (08:14→20:52)
[2020-01-10] MEDS: PANTOPRAZOLE 40 MG/10 ML VIAL IV SCH (08:14)
[2020-01-10] MEDS: HEPARIN SODIUM,PORCINE 5,000 UNIT/ML 1 ML VIAL SQ SCH ×2 (08:14→21:47)
[2020-01-10] MEDS: FERROUS SULFATE 325 MG TAB PO SCH (08:15)
[2020-01-10] MEDS: busPIRone HCl 5 MG TAB PO SCH ×2 (08:15→21:48)
[2020-01-10] MEDS: METOPROLOL TARTRATE 50 MG TAB PO SCH ×2 (08:15→21:48)
[2020-01-10] MEDS: INSULIN REGULAR 100 UNIT/ML VIAL SQ SCH ×4 (08:15→21:48)
[2020-01-10] MEDS: metroNIDAZOLE 500 MG TAB PO SCH ×3 (08:15→21:47)
[2020-01-10] MEDS: PRAVASTATIN SODIUM 20 MG TAB PO SCH (08:15)
[2020-01-10] MEDS: ASPIRIN 81 MG PO SCH (08:15)
[2020-01-10] MEDS: FOLIC ACID 1 MG TAB PO SCH (08:16)
[2020-01-10] MEDS: SPIRONOLACTONE 25 MG TAB PO SCH (08:16)
[2020-01-10] MEDS: VENLAFAXINE HCL ER 150 MG CAP PO SCH (08:16)
[2020-01-10] MEDS: ALLOPURINOL 300 MG TAB PO SCH (08:16)
[2020-01-10] MEDS: busPIRone HCl 10 MG TAB PO SCH ×2 (08:16→21:48)
[2020-01-10] MEDS: ISOSORBIDE MONONITRATE ER 30 MG TAB.ER.24H PO SCH (08:16)
[2020-01-10] MEDS: METOLAZONE 5 MG TAB PO SCH (08:16)
[2020-01-10] MEDS: PREGABALIN 100 MG CAP PO SCH ×2 (08:17→21:48)
[2020-01-10 08:48] LABS: Basophils # (A) 0.1 k/uL (0-0.2); Basophils % (A) 1 %; Eosinophils # (A) 0.1 k/uL (0-0.7); Eosinophils % (A) 2 %; HGB 9.7 gm/dL (11.4-16.0); Hypochromasia Marked; Lymphocytes # (A) 1.2 k/uL (1.0-4.8); Lymphocytes % (A) 16 %; MCH 26.9 pg (25.0-35.0); MCHC 29.3 g/dL (31.0-37.0); MCV 91.9 fL (80.0-100.0); Mean Platelet Volume 7.7; Monocytes # (A) 0.5 k/uL (0-1.0); Monocytes % (A) 7 %; Neutrophils # (A) 5.2 k/uL (1.3-7.7); Neutrophils % (A) 72 %; Platelet Count 288 k/uL (150-450); RBC 3.59 m/uL (3.80-5.40); RDW 15.8 % (11.5-15.5); WBC 7.2 k/uL (3.8-10.6)
[2020-01-10 09:01] LABS: Calcium 9.4 mg/dL (8.4-10.2); Potassium 5.5 mmol/L (3.5-5.1)
[2020-01-10 09:37] LABS: Hemoglobin A1C 9.3 % (4.0-6.0)
[2020-01-10] MEDS: INSULIN NPH 300 UNIT/3 ML VIAL SQ SCH ×2 (10:56→21:48)
[2020-01-10 11:47] LABS: Glucose,Whole Blood 235 mg/dL (75-99)
[2020-01-10] MEDS: VANCOMYCIN 2,000 MG in SODIUM CHLORIDE 0.9% 500 ML 500 ML IVPB SCH (12:16)
[2020-01-10] MEDS ORDERED: DEXTROSE 50% SYRINGE 50 ML IVP ONE ×2 (15:03→16:02)
[2020-01-10 15:12] LABS: Glucose,Whole Blood 46 mg/dL (75-99)
[2020-01-10 15:31] LABS: Glucose,Whole Blood 106 mg/dL (75-99)
[2020-01-10 15:58] LABS: Glucose,Whole Blood 62 mg/dL (75-99)
[2020-01-10 16:21] LABS: Glucose,Whole Blood 125 mg/dL (75-99)
[2020-01-10 16:50] LABS: Glucose,Whole Blood 93 mg/dL (75-99)
[2020-01-10] MEDS: DEXTROSE 5%-0.45% NACL 1,000 ML IV SCH (17:24)
[2020-01-10] MEDS ORDERED: IV FLUID CONTINUATION 1,000 ML IV ONE (18:10)
[2020-01-10] MEDS ORDERED: LIDOCAINE 1% INJ 10MG/ML (20 ML MDV) SQ ONE (18:11)
[2020-01-10] MEDS ORDERED: MIDAZOLAM 2 MG/2 ML VIAL IVP ONE (18:14)
[2020-01-10] MEDS ORDERED: IOPAMIDOL-250 50ML BTL INTRAARTER ONE (18:29)
--- NOTE | 2020-01-10 18:48 | PN ---
PROGRESS NOTE DATE OF SERVICE: 01/10/2020 REASON FOR FOLLOWUP: Left big toe diabetic foot infection. INTERVAL HISTORY: The patient is currently afebrile. The patient is breathing comfortably. Denies having any chest pain or shortness of breath or cough. No nausea. No vomiting. No abdominal pain or any worsening pain to the left big toe. PHYSICAL EXAMINATION: Blood pressure 147/66, pulse of 54, temperature 98. She is 98% on room air. General description is a middle-aged female lying in bed in no distress. RESPIRATORY SYSTEM: Unlabored breathing. Clear to auscultation anteriorly. HEART: S1, S2. Regular rate and rhythm. ABDOMEN: Soft. No tenderness. Left big toe overall swelling and redness have decreased. DIAGNOSTIC IMPRESSION AND PLAN: Patient with left big toe diabetic foot infection with secondary cellulitis in this patient. Overall improvement of the cellulitis with vancomycin; to continue. Culture has been negative for any resistant pathogen. Plan will be to finish therapy with oral antibiotic when stable for discharge. Continue with supportive care. MMODL / IJN: [id number] /
[2020-01-10 20:38] LABS: Glucose,Whole Blood 80 mg/dL (75-99)
--- NOTE | 2020-01-10 21:03 | PN ---
PROGRESS NOTE DATE OF SERVICE: 01/10/2020 This 59-year-old woman who was admitted with a left big toe ulcer has no evidence of osteomyelitis at this time. The patient underwent left lower lobe angiography by Dr. Linda. No chest pain. No palpitations. No fever. PHYSICAL EXAMINATION: Alert and oriented x3. Pulse is 54, blood pressure 133/61, respirations 16, temperature 98.1, pulse ox 92% on 3 L. HEENT: Conjunctivae normal. NECK: No jugular venous distention. CARDIOVASCULAR SYSTEM: S1, S2 muffled. RESPIRATORY SYSTEM: Breath sounds diminished at the bases. No rhonchi. No crackles. ABDOMEN: Soft. LEGS: Ulcer present. NERVOUS SYSTEM: No focal deficit. LABS: Creatinine 1.17. ASSESSMENT: 1. Left big toe ulcer with nonhealing recurrent ulcer; rule out osteomyelitis. 2. History of coronary artery disease. 3. Diabetes mellitus, type 2, uncontrolled with hyperglycemia. 4. History of recent PICC line and prolonged IV antibiotic course. 5. History of methicillin-resistant Staphylococcus aeruginosa and Streptococcus agalactiae from the culture. 6. Chronic kidney disease, stage 3. 7. History of congestive heart failure. 8. History of chronic obstructive pulmonary disease. 9. History of cerebrovascular accident, transient ischemic attack. 10.Diabetes mellitus, type 2. 11.Peripheral neuropathy. 12.History of deep vein thrombosis. 13.Gastroesophageal reflux disease. 14.History of gastrointestinal bleed. 15.Hypertension. 16.Hyperlipidemia. 17.History of myocardial infarction. 18.History of degenerative joint disease. 19.History of pneumonia. 20.Obstructive sleep apnea. 21.Previous left great toe ulcer and PICC line outpatient antibiotic treatment. 22.History of chronic hypoxic respiratory failure. 23.History of sleep apnea. 24.History of anxiety, depression. 25.Obesity with body mass index of 45.9. 26.FULL CODE. RECOMMENDATIONS AND DISCUSSION: I recommend to continue current medications, continue with the monitoring, symptomatic treatment. Otherwise at this time monitor creatinine closely. Monitor potassium closely. Repeat electrolytes will be ordered. Continue with IV fluids. Guarded prognosis. Further recommendations to follow. MMODL / IJN: [id number] /
--- NOTE | 2020-01-10 23:09 | OP ---
OPERATIVE REPORT PREOPERATIVE DIAGNOSIS: Nonhealing wound, left foot big toe. POSTOPERATIVE DIAGNOSIS: Nonhealing wound, left foot big toe. PROCEDURE: Left leg angiogram. PROCEDURE DESCRIPTION: This patient was brought to the catheterization laboratory technician. Left groin was prepped and draped in sterile manner. 1% lidocaine was infiltrated in the left groin area. Ultrasound-guided micropuncture was introduced into the left common femoral artery. Micropuncture guidewire was passed and 4-B[place]hi sheath as advanced on top of the guidewire. With hand injection, left leg angiogram was performed. Left common iliac artery was found to be patent. External iliac was patent. Internal iliac was visualized. Femoral artery, left femoral artery and profunda were visualized. They were small in caliber. Superficial femoral artery was visualized. Popliteal artery was visualized and trifurcation of the tibial vessels was seen at the lower leg. Anterior tibial and posterior were visualized. Posterior tibial was smaller than the anterior tibial. Catheter was removed. Pressure was held. Patient tolerated the procedure well. MMODL / IJN: [id number] /
[2020-01-11 07:01] LABS: Basophils # (A) 0.1 k/uL (0-0.2); Basophils % (A) 1 %; Eosinophils # (A) 0.1 k/uL (0-0.7); Eosinophils % (A) 2 %; HCT 29.8 % (34.0-46.0); HGB 9.2 gm/dL (11.4-16.0); Hypochromasia Marked; Lymphocytes # (A) 1.4 k/uL (1.0-4.8); Lymphocytes % (A) 18 %; MCH 28.7 pg (25.0-35.0); MCV 92.7 fL (80.0-100.0); Mean Platelet Volume 7.6; Monocytes # (A) 0.5 k/uL (0-1.0); Monocytes % (A) 6 %; Neutrophils # (A) 5.4 k/uL (1.3-7.7); Neutrophils % (A) 71 %; Platelet Count 251 k/uL (150-450); RBC 3.21 m/uL (3.80-5.40); RDW 15.7 % (11.5-15.5); WBC 7.6 k/uL (3.8-10.6)
[2020-01-11 07:13] LABS: Calcium 8.9 mg/dL (8.4-10.2); Potassium 4.9 mmol/L (3.5-5.1)
[2020-01-11 07:22] LABS: Glucose,Whole Blood 239 mg/dL (75-99)
[2020-01-11 08:32] LABS: Glucose,Whole Blood 212 mg/dL (75-99)
[2020-01-11] MEDS: INSULIN ASPART (NovoLOG) 100 UNIT/ML VIAL SQ SCH ×4 (08:39→21:19)
[2020-01-11] MEDS: SPIRONOLACTONE 25 MG TAB PO SCH (08:40)
[2020-01-11] MEDS: FOLIC ACID 1 MG TAB PO SCH (08:40)
[2020-01-11] MEDS: METOPROLOL TARTRATE 50 MG TAB PO SCH ×2 (08:40→21:18)
[2020-01-11] MEDS: PREGABALIN 100 MG CAP PO SCH ×2 (08:40→21:18)
[2020-01-11] MEDS: PRAVASTATIN SODIUM 20 MG TAB PO SCH (08:41)
[2020-01-11] MEDS: ALLOPURINOL 300 MG TAB PO SCH (08:41)
[2020-01-11] MEDS: ASPIRIN 81 MG PO SCH (08:41)
[2020-01-11] MEDS: metroNIDAZOLE 500 MG TAB PO SCH ×3 (08:41→21:18)
[2020-01-11] MEDS: FERROUS SULFATE 325 MG TAB PO SCH (08:41)
[2020-01-11] MEDS: busPIRone HCl 5 MG TAB PO SCH ×2 (08:41→21:18)
[2020-01-11] MEDS: PANTOPRAZOLE 40 MG TABLET PO SCH (08:41)
[2020-01-11] MEDS: busPIRone HCl 10 MG TAB PO SCH ×2 (08:41→21:18)
[2020-01-11] MEDS: ISOSORBIDE MONONITRATE ER 30 MG TAB.ER.24H PO SCH (08:41)
[2020-01-11] MEDS: HEPARIN SODIUM,PORCINE 5,000 UNIT/ML 1 ML VIAL SQ SCH ×2 (08:42→21:18)
--- NOTE | 2020-01-11 09:23 | IR ---
Fluoroscopy HISTORY: toe ulcer 30 seconds fluoroscopy time supplied to the referring clinician. 129 intraoperative C-arm images doc ument the procedure. See dictated report from vascular surgery.
[2020-01-11] MEDS: INSULIN NPH 300 UNIT/3 ML VIAL SQ SCH ×2 (09:35→21:19)
[2020-01-11] MEDS: VENLAFAXINE HCL ER 150 MG CAP PO SCH (09:35)
[2020-01-11] MEDS: INSULIN REGULAR 100 UNIT/ML VIAL SQ SCH ×3 (09:35→17:08)
[2020-01-11] MEDS: VANCOMYCIN 2,000 MG in SODIUM CHLORIDE 0.9% 500 ML 500 ML IVPB SCH (12:32)
[2020-01-11 13:00] LABS: Glucose,Whole Blood 184 mg/dL (75-99)
--- NOTE | 2020-01-11 13:34 | PN ---
PROGRESS NOTE 59-year-old diabetic female. Patient has a chronic wound, left foot big toe under care of Dr. Oliver. The patient has been admitted for IV antibiotic and local wound care. The patient has a large open wound with necrotic edges on the plantar aspect of the big toe and also patient has some cellulitis of the lower extremity. Discussed with Dr. Oliver. Dr. Oliver had some eye issues. Recommended to have a left big toe amputation. Discussed with the patient. Patient agrees. The patient will need left foot big toe amputation. Risks and complications of bleeding, infection, nonhealing, thrombosis has been discussed. MMODL / IJN: [id number] /
--- NOTE | 2020-01-11 14:14 | P.PN ---
Subjective 59-year-old the female was admitted for left big toe ulcer nonhealing. Patient doesn't have any evidence of osteo-myelitis. Patient will undergo amputation of the toe was probably tomorrow. Patient is presently on vancomycin and Flagyl. Constitutional: Denied any fatigue denied any fever. Cardio vascular: denied any chest pain, palpitations Gastrointestinal denied any nausea vomiting Pulmonary: Denied any shortness of breath cough Neurologic denied any new focal deficits All inpatient medications were reviewed and appropriate changes in these medications as dictated in the interval history and assessment and plan. Objective - Vital Signs Vital signs: Vital Signs Temp 98.3 F 01/11/20 03:56 Pulse 54 L 01/10/20 15:50 Resp 18 01/11/20 03:56 BP 158/60 01/11/20 03:56 Pulse Ox 98 01/11/20 03:56 Intake & Output 01/10/20 01/11/20 01/11/20 18:59 06:59 18:59 Intake Total 75 450 240 Output Total 900 Balance -825 450 240 Weight 121.6 kg Intake: IV 75 450 Dextrose 5%-0.45% NaCl 1, 450 000 ml @ 50 mls/hr IV . Q20H [facility] Rx#:[id number] Oral 240 Output: Urine 900 Other: Voiding Method Toilet Toilet # Voids 2 1 - Exam PHYSICAL EXAMINATION: GENERAL: The patient is alert and oriented x3, not in any acute distress. Well developed, well nourished. HEENT: Pupils are round and equally reacting to light. EOMI. No scleral icterus. No conjunctival pallor. Normocephalic, atraumatic. No pharyngeal erythema. No thyromegaly. CARDIOVASCULAR: S1 and S2 present. No murmurs, rubs, or gallops. PULMONARY: Chest is clear to auscultation, no wheezing or crackles. ABDOMEN: Soft, nontender, nondistended, normoactive bowel sounds. No palpable o rganomegaly. MUSCULOSKELETAL: No joint swelling or deformity. EXTREMITIES: No cyanosis, clubbing, or pedal edema. NEUROLOGICAL: Gross neurological examination did not reveal any focal deficits. SKIN: Left great toe ulcer as mentioned above - Labs CBC & Chem 7: 01/11/20 06:21 01/11/20 06:21 Labs: Abnormal Lab Results - Last 24 Hours (Table) 01/10/20 01/10/20 01/10/20 Range/Units 15:02 15:30 15:57 RBC (3.80-5.40) m/uL Hgb (11.4-16.0) gm/dL Hct (34.0-46.0) % RDW (11.5-15.5) % BUN (7-17) mg/dL Creatinine (0.52-1.04) mg/dL Glucose (74-99) mg/dL POC Glucose (mg/dL) 46 L 106 H 62 L (75-99) mg/dL 01/10/20 01/11/20 01/11/20 Range/Units 16:19 06:21 06:21 RBC 3.21 L (3.80-5.40) m/uL Hgb 9.2 L (11.4-16.0) gm/dL Hct 29.8 L (34.0-46.0) % RDW 15.7 H (11.5-15.5) % BUN 27 H (7-17) mg/dL Creatinine 1.09 H (0.52-1.04) mg/dL Glucose 200 H (74-99) mg/dL POC Glucose (mg/dL) 125 H (75-99) mg/dL 01/11/20 01/11/20 01/11/20 Range/Units 07:21 08:31 12:55 RBC (3.80-5.40) m/uL Hgb (11.4-16.0) gm/dL Hct (34.0-46.0) % RDW (11.5-15.5) % BUN (7-17) mg/dL Creatinine (0.52-1.04) mg/dL Glucose (74-99) mg/dL POC Glucose (mg/dL) 239 H 212 H 184 H (75-99) mg/dL Microbiology - Last 24 Hours (Table) 01/07/20 16:11 Blood Culture - Preliminary Blood No Growth after 72 hours Assessment and Plan Plan: -Left big toe ulcer infected: Presented Vanco mycin and metronidazole which will be continued possible amputation tomorrow -Coronary disease 2diabetes mellitus with uncontrolled elevated blood sugars will titrate the insulin depending her her insulin requirements -Possible chronic kidney disease stage II from diabetic nephropathy -COPD without any acute exacerbation -Diabetic peripheral neuropathy -Hypertension -Hyperlipidemia -Obstructive sleep apnea -Depression For above-mentioned chronic medical problems and patient resumed on appropriate home medications
[2020-01-11] MEDS: DEXTROSE 5%-0.45% NACL 1,000 ML IV SCH (14:22)
--- NOTE | 2020-01-11 15:49 | PN ---
PROGRESS NOTE DATE OF SERVICE: 01/11/2020 REASON FOR FOLLOWUP: Left big toe diabetic foot ulcer with cellulitis. INTERVAL HISTORY: The patient is currently afebrile. The patient is breathing comfortably. Denies having any chest pain or shortness of breath or cough. No nausea. No vomiting. No abdominal pain or pain to the left big toe. PHYSICAL EXAMINATION: Blood pressure 112/55 with a pulse of 80, temperature 98. She is 98% on 3 L nasal cannula. General description is a middle-aged female lying in bed in no distress. RESPIRATORY SYSTEM: Unlabored breathing. Clear to auscultation anteriorly. HEART: S1, S2. Regular rate and rhythm. ABDOMEN: Soft. No tenderness. LABS: Hemoglobin 9.2, white count 7.6, BUN of 27, creatinine 1.09. DIAGNOSTIC IMPRESSION AND PLAN: Patient with a left big toe diabetic foot infection with underlying cellulitis. Culture has been negative for any resistant pathogen. In view of the chronicity of this ulcer and recurrent cellulitis, plan is for possible amputation per Vascular Surgery, to which the patient is agreeable. Continue with the vancomycin and Flagyl. Monitor clinical course closely. MMODL / IJN: [id number] /
[2020-01-11 16:37] LABS: Glucose,Whole Blood 66 mg/dL (75-99)
[2020-01-11 16:37] LABS: Glucose,Whole Blood 53 mg/dL (75-99)
[2020-01-11 16:59] LABS: Glucose,Whole Blood 94 mg/dL (75-99)
[2020-01-11 20:20] LABS: Glucose,Whole Blood 192 mg/dL (75-99)
[2020-01-11] MEDS ORDERED: fentaNYL (PF) 50 MCG/ML 2 ML AMP IV PRN (21:55)
[2020-01-12 07:12] LABS: Glucose,Whole Blood 236 mg/dL (75-99)
[2020-01-12] MEDS: LACTATED RINGERS 1,000 ML IV SCH ×2 (07:18→21:29)
[2020-01-12] MEDS: INSULIN ASPART (NovoLOG) 100 UNIT/ML VIAL SQ SCH ×4 (07:56→21:27)
[2020-01-12] MEDS: ASPIRIN 81 MG PO SCH (07:56)
[2020-01-12] MEDS: ALLOPURINOL 300 MG TAB PO SCH (07:56)
[2020-01-12] MEDS: busPIRone HCl 5 MG TAB PO SCH ×2 (07:57→21:28)
[2020-01-12] MEDS: FOLIC ACID 1 MG TAB PO SCH (07:57)
[2020-01-12] MEDS: busPIRone HCl 10 MG TAB PO SCH ×2 (07:57→21:28)
[2020-01-12] MEDS: FERROUS SULFATE 325 MG TAB PO SCH (07:57)
[2020-01-12] MEDS: HEPARIN SODIUM,PORCINE 5,000 UNIT/ML 1 ML VIAL SQ SCH ×2 (07:58→21:28)
[2020-01-12] MEDS: METOPROLOL TARTRATE 50 MG TAB PO SCH ×2 (07:58→21:28)
[2020-01-12] MEDS: INSULIN NPH 300 UNIT/3 ML VIAL SQ SCH ×2 (07:58→21:27)
[2020-01-12] MEDS: ISOSORBIDE MONONITRATE ER 30 MG TAB.ER.24H PO SCH (07:58)
[2020-01-12] MEDS: SPIRONOLACTONE 25 MG TAB PO SCH (07:59)
[2020-01-12] MEDS: PRAVASTATIN SODIUM 20 MG TAB PO SCH (07:59)
[2020-01-12] MEDS: PREGABALIN 100 MG CAP PO SCH ×2 (07:59→21:29)
[2020-01-12] MEDS: PANTOPRAZOLE 40 MG TABLET PO SCH (07:59)
[2020-01-12] MEDS: metroNIDAZOLE 500 MG TAB PO SCH ×3 (07:59→21:28)
[2020-01-12] MEDS: VENLAFAXINE HCL ER 150 MG CAP PO SCH (07:59)
[2020-01-12] MEDS: DEXTROSE 5%-0.45% NACL 1,000 ML IV SCH (08:08)
[2020-01-12 08:20] LABS: Basophils # (A) 0.1 k/uL (0-0.2); Basophils % (A) 1 %; Eosinophils # (A) 0.1 k/uL (0-0.7); Eosinophils % (A) 2 %; HCT 30.6 % (34.0-46.0); HGB 9.6 gm/dL (11.4-16.0); Hypochromasia Marked; Lymphocytes # (A) 1.4 k/uL (1.0-4.8); Lymphocytes % (A) 18 %; MCHC 31.4 g/dL (31.0-37.0); MCV 92.4 fL (80.0-100.0); Mean Platelet Volume 7.9; Monocytes # (A) 0.4 k/uL (0-1.0); Monocytes % (A) 5 %; Neutrophils # (A) 5.6 k/uL (1.3-7.7); Neutrophils % (A) 73 %; Platelet Count 264 k/uL (150-450); RBC 3.32 m/uL (3.80-5.40); RDW 15.9 % (11.5-15.5); WBC 7.7 k/uL (3.8-10.6)
[2020-01-12 08:37] LABS: Calcium 8.8 mg/dL (8.4-10.2); Potassium 4.9 mmol/L (3.5-5.1)
[2020-01-12] MEDS ORDERED: ERGOCALCIFEROL 50,000 UNIT CAP PO SCH (09:00)
[2020-01-12] MEDS ORDERED: VANCOMYCIN TROUGH DUE 1 EACH MISC MISCELLANE ONE (11:00)
[2020-01-12 11:52] LABS: Glucose,Whole Blood 359 mg/dL (75-99)
[2020-01-12] MEDS: SODIUM CHLORIDE 0.9% 1,000 ML IV SCH (12:10)
[2020-01-12] MEDS: VANCOMYCIN 2,000 MG in SODIUM CHLORIDE 0.9% 500 ML 500 ML IVPB SCH (12:10)
--- NOTE | 2020-01-12 13:58 | PN ---
PROGRESS NOTE DATE OF SERVICE: 01/12/2020 REASON FOR FOLLOWUP: Left big toe diabetic foot infection. INTERVAL HISTORY: Patient is currently afebrile. The patient is breathing comfortably. Denies any chest pain or any cough. No nausea, vomiting, abdominal pain, or any worsening pain to the left big toe area. On examination, blood pressure 113/68 with a pulse of 106, temperature 98.6. She is 97% on 3 L nasal cannula. General description is a middle-aged female lying in bed in no distress. Respiratory system: Unlabored breathing, clear to auscultation anteriorly. Heart S1, S2. Regular rate and rhythm. Abdomen soft. Left foot is currently dressed up. No obvious drainage on the dressing. DIAGNOSTIC IMPRESSION AND PLAN: Patient with left diabetic foot infection in this patient failing outpatient antibiotic therapy. Patient seemed to be agreeable to go for amputation of the left big toe scheduled for this afternoon. Continue with vancomycin and monitor clinical course closely. MMODL / IJN: [id number] /
[2020-01-12] MEDS: IV FLUID CONTINUATION 1,000 ML IV ONE (14:01)
[2020-01-12] MEDS ORDERED: ONDANSETRON 4 MG/2 ML VIAL IVP ONE (14:28)
[2020-01-12 14:30] LABS: Glucose,Whole Blood 269 mg/dL (75-99)
[2020-01-12] MEDS ORDERED: ONDANSETRON 4 MG/2 ML VIAL ONE (14:31)
[2020-01-12] MEDS ORDERED: MIDAZOLAM 2 MG/2 ML VIAL ONE (14:45)
[2020-01-12] MEDS ORDERED: KETAMINE 10 MG/ML 20 ML VIAL ONE (14:45)
--- NOTE | 2020-01-12 15:02 | P.PN ---
Subjective Progress Note Date: 01/12/20 Principal diagnosis: This is a 59-year-old female who was recently admitted for left great toe ulcer that was nonhealing. X-rays performed showing no signs of osteomyelitis. Roxane ent awaiting to undergo amputation of the great toe today with Dr. Linda. Patient is currently maintained on IV antibiotics in the form of vancomycin and Flagyl and will continue at this time. Patient did have an episode of hypoglycemia yesterday and was initiated on D5 although blood sugars have been elevated and will discontinue the D5 at this time. Will monitor blood sugars closely. Currently no reports of chest pain, shortness of breath, or palpitations. Patient is afebrile. No reports of nausea or vomiting and patient is currently nothing by mouth for the procedure. Objective - Vital Signs Vital signs: Vital Signs Temp 96.9 F L 01/12/20 14:13 Pulse 77 01/12/20 14:13 Resp 18 01/12/20 14:13 BP 127/65 01/12/20 14:13 Pulse Ox 96 01/12/20 14:13 Intake & Output 01/11/20 01/12/20 01/12/20 18:59 06:59 18:59 Intake Total 800 90 Balance 800 90 Weight 123.1 kg Intake: IV 50 Intake, IV Titration 40 Amount Sodium Chloride 0.9% 1, 40 000 ml @ 20 mls/hr IV . Q24H [facility] Rx#:[id number] Oral 800 Other: Voiding Method Toilet Toilet Toilet # Voids 2 - Exam GENERAL: The patient is alert and oriented x3, not in any acute distress. Well developed, well nourished. HEENT: Pupils are round and equally reacting to light. EOMI. No scleral icterus. No conjunctival pallor. Normocephalic, atraumatic. No pharyngeal erythema. No thyromegaly. CARDIOVASCULAR: S1 and S2 present. No murmurs, rubs, or gallops. PULMONARY: Chest is clear to auscultation, no wheezing or crackles. ABDOMEN: Soft, nontender, nondistended, normoactive bowel sounds. No palpable organomegaly. MUSCULOSKELETAL: No joint swelling or deformity. EXTREMITIES: No cyanosis, clubbing, or pedal edema. NEUROLOGICAL: Gross neurological examination did not reveal any focal deficits. SKIN: Left great toe ulcer as mentioned above - Labs CBC & Chem 7: 01/12/20 07:49 01/12/20 07:49 Labs: Abnormal Lab Results - Last 24 Hours (Table) 01/11/20 01/11/20 01/11/20 Range/Units 16:17 16:36 20:19 RBC (3.80-5.40) m/uL Hgb (11.4-16.0) gm/dL Hct (34.0-46.0) % RDW (11.5-15.5) % BUN (7-17) mg/dL Creatinine (0.52-1.04) mg/dL Glucose (74-99) mg/dL POC Glucose (mg/dL) 53 L 66 L 192 H (75-99) mg/dL 01/12/20 01/12/20 01/12/20 Range/Units 07:05 07:49 07:49 RBC 3.32 L (3.80-5.40) m/uL Hgb 9.6 L (11.4-16.0) gm/dL Hct 30.6 L (34.0-46.0) % RDW 15.9 H (11.5-15.5) % BUN 24 H (7-17) mg/dL Creatinine 1.10 H (0.52-1.04) mg/dL Glucose 255 H (74-99) mg/dL POC Glucose (mg/dL) 236 H (75-99) mg/dL 01/12/20 01/12/20 Range/Units 11:31 14:27 RBC (3.80-5.40) m/uL Hgb (11.4-16.0) gm/dL Hct (34.0-46.0) % RDW (11.5-15.5) % BUN (7-17) mg/dL Creatinine (0.52-1.04) mg/dL Glucose (74-99) mg/dL POC Glucose (mg/dL) 359 H 269 H (75-99) mg/dL Microbiology - Last 24 Hours (Table) 01/07/20 16:11 Blood Culture - Preliminary Blood No Growth after 96 hours Assessment and Plan Assessment: -Left great toe ulcer infected: Patient continues on IV antibiotics in the form of vancomycin and Flagyl and will continue at this time. Patient awaiting to undergo left great toe amputation with Dr. Alexei this afternoon -Coronary disease -diabetes mellitus with uncontrolled elevated blood sugars and an episode of hypoglycemia, will continue to monitor blood sugars closely and continue sliding scale at this time. -Possible chronic kidney disease stage II from diabetic nephropathy -COPD without any acute exacerbation -Diabetic peripheral neuropathy -Hypertension -Hyperlipidemia -Obstructive sleep apnea -Depression Plan: Patient to continue on IV antibiotics in the form of vancomycin and Flagyl. Awaiting to undergo left great toe amputation with Dr. Linda this afternoon. Patient is nothing by mouth at this time. Continue to monitor blood sugars closely. Will repeat a.m. labs. Creatinine was slightly elevated at 1.10 although is trending down. Further recommendations to follow.
[2020-01-12] MEDS ORDERED: LIDOCAINE 1% INJ 10MG/ML (20 ML MDV) SQ ONE (15:03)
[2020-01-12 15:23] VITALS: BMI 48.0
[2020-01-12 17:12] LABS: Glucose,Whole Blood 223 mg/dL (75-99)
[2020-01-12 20:57] LABS: Glucose,Whole Blood 256 mg/dL (75-99)
--- NOTE | 2020-01-12 23:58 | OP ---
OPERATIVE REPORT PREOPERATIVE DIAGNOSIS: Chronic wound, left foot big toe. POSTOPERATIVE DIAGNOSIS: OPERATION: Amputation of the left foot big toe. DESCRIPTION OF THE PROCEDURE: The patient brought to the operating room under local and IV sedation. Incision was made on the dorsal aspect of the foot. Deepened through skin, fat and fascia. Then this incision was extended to the posterior distal aspect of the big toe and deepened through skin, fat and fascia. The tendons were divided and the digital vessels were suture ligated until we reached the metatarsophalangeal joint. The ligaments were divided and the toe was removed at the metatarsophalangeal joint. There was some bleeding which was controlled by hemostasis and suture ligation. Wound was copiously irrigated with hydrogen peroxide and saline and skin was closed in 2 layers. The fascia and subcutaneous tissue were approximated with 3-0 Vicryl and skin was closed with 3-0 nylon with mattress interrupted suture. Dressing applied. Patient tolerated the procedure well. MMODL / IJN: [id number] /
[2020-01-13 07:11] LABS: Glucose,Whole Blood 337 mg/dL (75-99)
[2020-01-13] MEDS: ALLOPURINOL 300 MG TAB PO SCH (08:12)
[2020-01-13] MEDS: busPIRone HCl 5 MG TAB PO SCH ×2 (08:12→21:02)
[2020-01-13] MEDS: busPIRone HCl 10 MG TAB PO SCH ×2 (08:12→21:02)
[2020-01-13] MEDS: INSULIN ASPART (NovoLOG) 100 UNIT/ML VIAL SQ SCH ×4 (08:12→21:02)
[2020-01-13] MEDS: ASPIRIN 81 MG PO SCH (08:12)
[2020-01-13] MEDS: HEPARIN SODIUM,PORCINE 5,000 UNIT/ML 1 ML VIAL SQ SCH ×2 (08:13→21:03)
[2020-01-13] MEDS: ISOSORBIDE MONONITRATE ER 30 MG TAB.ER.24H PO SCH (08:13)
[2020-01-13] MEDS: FERROUS SULFATE 325 MG TAB PO SCH (08:13)
[2020-01-13] MEDS: INSULIN NPH 300 UNIT/3 ML VIAL SQ SCH ×2 (08:13→21:31)
[2020-01-13] MEDS: FOLIC ACID 1 MG TAB PO SCH (08:13)
[2020-01-13] MEDS: METOPROLOL TARTRATE 50 MG TAB PO SCH ×2 (08:13→21:02)
[2020-01-13] MEDS: PRAVASTATIN SODIUM 20 MG TAB PO SCH (08:14)
[2020-01-13] MEDS: SPIRONOLACTONE 25 MG TAB PO SCH (08:14)
[2020-01-13] MEDS: PREGABALIN 100 MG CAP PO SCH ×2 (08:14→21:02)
[2020-01-13] MEDS: VENLAFAXINE HCL ER 150 MG CAP PO SCH (08:14)
[2020-01-13] MEDS: PANTOPRAZOLE 40 MG TABLET PO SCH (08:14)
[2020-01-13] MEDS: metroNIDAZOLE 500 MG TAB PO SCH ×3 (08:20→21:02)
[2020-01-13 11:38] LABS: Anisocytosis Slight; Basophils # (A) 0.1 k/uL (0-0.2); Basophils % (A) 1 %; Eosinophils # (A) 0.1 k/uL (0-0.7); Eosinophils % (A) 1 %; HCT 28.3 % (34.0-46.0); HGB 8.4 gm/dL (11.4-16.0); Hypochromasia Marked; Lymphocytes # (A) 0.9 k/uL (1.0-4.8); Lymphocytes % (A) 14 %; MCH 27.6 pg (25.0-35.0); MCHC 29.6 g/dL (31.0-37.0); MCV 93.4 fL (80.0-100.0); Mean Platelet Volume 8.3; Monocytes # (A) 0.4 k/uL (0-1.0); Monocytes % (A) 6 %; Neutrophils % (A) 76 %; Platelet Count 199 k/uL (150-450); RBC 3.03 m/uL (3.80-5.40); RDW 16.1 % (11.5-15.5); WBC 6.5 k/uL (3.8-10.6)
[2020-01-13 11:46] LABS: Glucose,Whole Blood 328 mg/dL (75-99)
[2020-01-13 11:49] LABS: Calcium 8.9 mg/dL (8.4-10.2); Potassium 5.2 mmol/L (3.5-5.1)
--- NOTE | 2020-01-13 12:38 | P.PN ---
Subjective Progress Note Date: 01/13/20 Principal diagnosis: This is a 59-year-old female who was recently admitted for left great toe ulcer that was nonhealing. X-rays performed showing no signs of osteomyelitis. Roxane ent awaiting to undergo amputation of the great toe today with Dr. Linda. Patient is currently maintained on IV antibiotics in the form of vancomycin and Flagyl and will continue at this time. Patient did have an episode of hypoglycemia yesterday and was initiated on D5 although blood sugars have been elevated and will discontinue the D5 at this time. Will monitor blood sugars closely. Currently no reports of chest pain, shortness of breath, or palpitations. Patient is afebrile. No reports of nausea or vomiting and patient is currently nothing by mouth for the procedure. 01/13/2020 Patient is seen and evaluated in follow-up status post left great toe amputation with Dr. Linda yesterday. Patient's blood sugars continue to be elevated and patient is to continue on long-acting along with sliding scale. Currently patient has no reports of chest pain, shortness of breath, or palpitations. Patient is afebrile. No reports of nausea or vomiting and patient is tolerating diet. Potassium slightly elevated at 5.2 today, creatinine is 1.09. Will repeat a.m. labs. Patient is continued on IV antibiotics in the form of vancomycin and oral Flagyl and will continue at this time while awaiting cultures. Infectious disease is following. Objective - Vital Signs Vital signs: Vital Signs Temp 97.8 F 01/13/20 07:10 Pulse 64 01/13/20 07:10 Resp 18 01/13/20 07:10 BP 148/65 01/13/20 07:10 Pulse Ox 96 01/13/20 07:10 Intake & Output 01/12/20 01/13/20 01/13/20 18:59 06:59 18:59 Intake Total 680 Output Total 25 Balance 655 Weight 123.1 kg 124.6 kg Intake: IV 100 Intake, IV Titration 40 Amount Sodium Chloride 0.9% 1, 40 000 ml @ 20 mls/hr IV . Q24H [facility] Rx#:[id number] Oral 540 Output: Estimated Blood Loss 25 Other: Voiding Method Toilet Toilet Bedside Commode # Voids 1 1 1 # Bowel Movements 1 - Exam GENERAL: The patient is alert and oriented x3, not in any acute distress. Well developed, well nourished. HEENT: Pupils are round and equally reacting to light. EOMI. No scleral icterus. No conjunctival pallor. Normocephalic, atraumatic. No pharyngeal erythema. No thyromegaly. CARDIOVASCULAR: S1 and S2 present. No murmurs, rubs, or gallops. PULMONARY: Chest is clear to auscultation, no wheezing or crackles. ABDOMEN: Soft, nontender, nondistended, normoactive bowel sounds. No palpable organomegaly. MUSCULOSKELETAL: No joint swelling or deformity. EXTREMITIES: No cyanosis, clubbing, or pedal edema. NEUROLOGICAL: Gross neurological examination did not reveal any focal deficits. SKIN: Left great toe amputation with dressings and Patrick wraps noted status post surgery that are dry and intact. - Labs CBC & Chem 7: 01/13/20 11:07 01/13/20 11:07 Labs: Abnormal Lab Results - Last 24 Hours (Table) 01/12/20 01/12/20 01/12/20 Range/Units 14:27 16:52 20:56 RBC (3.80-5.40) m/uL Hgb (11.4-16.0) gm/dL Hct (34.0-46.0) % MCHC (31.0-37.0) g/dL RDW (11.5-15.5) % Lymphocytes # (1.0-4.8) k/uL Potassium (3.5-5.1) mmol/L BUN (7-17) mg/dL Creatinine (0.52-1.04) mg/dL Glucose (74-99) mg/dL POC Glucose (mg/dL) 269 H 223 H 256 H (75-99) mg/dL 01/13/20 01/13/20 01/13/20 Range/Units 07:10 11:07 11:07 RBC 3.03 L (3.80-5.40) m/uL Hgb 8.4 L (11.4-16.0) gm/dL Hct 28.3 L (34.0-46.0) % MCHC 29.6 L (31.0-37.0) g/dL RDW 16.1 H (11.5-15.5) % Lymphocytes # 0.9 L (1.0-4.8) k/uL Potassium 5.2 H (3.5-5.1) mmol/L BUN 22 H (7-17) mg/dL Creatinine 1.09 H (0.52-1.04) mg/dL Glucose 312 H (74-99) mg/dL POC Glucose (mg/dL) 337 H (75-99) mg/dL 01/13/20 Range/Units 11:44 RBC (3.80-5.40) m/uL Hgb (11.4-16.0) gm/dL Hct (34.0-46.0) % MCHC (31.0-37.0) g/dL RDW (11.5-15.5) % Lymphocytes # (1.0-4.8) k/uL Potassium (3.5-5.1) mmol/L BUN (7-17) mg/dL Creatinine (0.52-1.04) mg/dL Glucose (74-99) mg/dL POC Glucose (mg/dL) 328 H (75-99) mg/dL Microbiology - Last 24 Hours (Table) 01/12/20 15:45 Gram Stain - Preliminary Toe - Left First Tissue Culture - Preliminary 01/12/20 15:45 Fungal Culture - Preliminary Toe - Left First 01/12/20 15:45 Anaerobic Culture - Preliminary Toe - Left First 01/07/20 16:11 Blood Culture - Preliminary Blood No Growth after 120 hours Assessment and Plan Assessment: -Left great toe ulcer infected: Patient continues on IV antibiotics in the form of vancomycin and Flagyl and will continue at this time. -Status post left great toe amputation at the metatarsophalangeal joint postop day 1 -Coronary disease -diabetes mellitus with uncontrolled elevated blood sugars and an episode of hypoglycemia, will continue to monitor blood sugars closely and continue sliding scale and long-acting at this time. -Possible chronic kidney disease stage II from diabetic nephropathy -COPD without any acute exacerbation -Diabetic peripheral neuropathy -Hypertension -Hyperlipidemia -Obstructive sleep apnea -Depression Plan: Patient to continue on IV antibiotics in the form of vancomycin and Flagyl. Status post left great toe amputation with Dr. Linda yesterday. Awaiting cultures. Blood sugars continued to be elevated and patient has been resumed on long-acting along with sliding scale and will continue at this time. Continue to monitor blood sugars closely. Will repeat a.m. labs. Creatinine was slightly elevated at 1.09 although is trending down. PT/OT to evaluate the patient Further recommendations to follow.
[2020-01-13] MEDS: SODIUM CHLORIDE 0.9% 1,000 ML IV SCH (12:46)
[2020-01-13] MEDS: VANCOMYCIN 2,000 MG in SODIUM CHLORIDE 0.9% 500 ML 500 ML IVPB SCH (12:46)
[2020-01-13 17:01] LABS: Glucose,Whole Blood 253 mg/dL (75-99)
[2020-01-13 20:46] LABS: Glucose,Whole Blood 258 mg/dL (75-99)
[2020-01-13] MEDS: LACTATED RINGERS 1,000 ML IV SCH (21:11)
[2020-01-13] MEDS ORDERED: HYDROcodone/APAP 5-325MG 1 EACH TAB PO PRN (21:23)
--- NOTE | 2020-01-14 06:33 | PN ---
PROGRESS NOTE DATE OF SERVICE: 01/13/20 REASON FOR FOLLOWUP: Left big toe diabetic foot infection. INTERVAL HISTORY: Patient is currently afebrile, has been breathing comfortably. Denies having any chest pain. No shortness of breath or cough. No abdominal pain or any worsening pain to the left foot area. PHYSICAL EXAMINATION: Blood pressure 140/62 with a pulse of 63, temperature 98.1. She is 97% on 2 L nasal cannula. General description is a middle-aged male lying in bed in no distress. Respiratory system: Unlabored breathing, clear to auscultation anteriorly. Heart S1, S2. Regular rate and rhythm. Abdomen soft, no tenderness. Left foot is currently dressed up. No obvious drainage on the dressing. LABS: Hemoglobin 8.4, white count 6.5, BUN of 22, creatinine 1.09. DIAGNOSTIC IMPRESSION AND PLAN: Patient with left big toe diabetic foot infection, failing outpatient antibiotic therapy in this patient status post left big toe amputation. Plan is continue with vancomycin, Flagyl will be discontinued. Finish antibiotic therapy with a short course of oral antibiotic on discharge depending on condition of the wound. Continue supportive care. MMODL / IJN: [id number] /
[2020-01-14 07:20] LABS: Glucose,Whole Blood 236 mg/dL (75-99)
[2020-01-14] MEDS: INSULIN ASPART (NovoLOG) 100 UNIT/ML VIAL SQ SCH ×4 (07:41→21:30)
[2020-01-14] MEDS: INSULIN NPH 300 UNIT/3 ML VIAL SQ SCH ×2 (09:07→21:43)
[2020-01-14] MEDS: HEPARIN SODIUM,PORCINE 5,000 UNIT/ML 1 ML VIAL SQ SCH ×2 (09:08→21:28)
[2020-01-14] MEDS: ISOSORBIDE MONONITRATE ER 30 MG TAB.ER.24H PO SCH (09:09)
[2020-01-14] MEDS: busPIRone HCl 10 MG TAB PO SCH ×2 (09:09→21:28)
[2020-01-14] MEDS: ASPIRIN 81 MG PO SCH (09:09)
[2020-01-14] MEDS: PREGABALIN 100 MG CAP PO SCH ×2 (09:10→21:29)
[2020-01-14] MEDS: ALLOPURINOL 300 MG TAB PO SCH (09:10)
[2020-01-14] MEDS: SPIRONOLACTONE 25 MG TAB PO SCH (09:10)
[2020-01-14] MEDS: METOPROLOL TARTRATE 50 MG TAB PO SCH ×2 (09:11→21:29)
[2020-01-14] MEDS: FOLIC ACID 1 MG TAB PO SCH (09:11)
[2020-01-14] MEDS: FERROUS SULFATE 325 MG TAB PO SCH (09:11)
[2020-01-14] MEDS: VENLAFAXINE HCL ER 150 MG CAP PO SCH (09:11)
[2020-01-14] MEDS: PRAVASTATIN SODIUM 20 MG TAB PO SCH (09:11)
[2020-01-14] MEDS: PANTOPRAZOLE 40 MG TABLET PO SCH (09:12)
[2020-01-14] MEDS: busPIRone HCl 5 MG TAB PO SCH ×2 (09:12→21:29)
[2020-01-14] MEDS: METOLAZONE 5 MG TAB PO SCH (09:13)
--- NOTE | 2020-01-14 10:03 | PN ---
PROGRESS NOTE This is a 61-year-old diabetic female. Patient has a history of chronic wound, left foot big toe. Patient went for left big toe amputation. The patient is under the care of Dr. Buckner for IV antibiotics. We did the big toe amputation. Today we changed the dressing. Incision site is good. No discharge or redness noted. Recommend to continue with IV antibiotic and nonweightbearing. MMODL / IJN: [id number] /
[2020-01-14 10:09] LABS: Anisocytosis Slight; Basophils # (A) 0.1 k/uL (0-0.2); Basophils % (A) 1 %; Eosinophils # (A) 0.1 k/uL (0-0.7); Eosinophils % (A) 2 %; HCT 30.7 % (34.0-46.0); Hypochromasia Marked; Lymphocytes % (A) 15 %; MCH 27.4 pg (25.0-35.0); MCHC 29.4 g/dL (31.0-37.0); MCV 93.5 fL (80.0-100.0); Mean Platelet Volume 7.7; Monocytes # (A) 0.4 k/uL (0-1.0); Monocytes % (A) 5 %; Neutrophils % (A) 75 %; Platelet Count 207 k/uL (150-450); RBC 3.29 m/uL (3.80-5.40); RDW 16.2 % (11.5-15.5); WBC 6.7 k/uL (3.8-10.6)
[2020-01-14 10:28] LABS: Calcium 8.8 mg/dL (8.4-10.2); Potassium 4.9 mmol/L (3.5-5.1)
[2020-01-14 11:18] LABS: Glucose,Whole Blood 320 mg/dL (75-99)
[2020-01-14] MEDS: SODIUM CHLORIDE 0.9% 1,000 ML IV SCH (12:00)
[2020-01-14] MEDS: VANCOMYCIN 2,000 MG in SODIUM CHLORIDE 0.9% 500 ML 500 ML IVPB SCH (12:01)
--- NOTE | 2020-01-14 14:36 | P.PN ---
Subjective Progress Note Date: 01/14/20 Principal diagnosis: This is a 59-year-old female who was recently admitted for left great toe ulcer that was nonhealing. X-rays performed showing no signs of osteomyelitis. Roxane ent awaiting to undergo amputation of the great toe today with Dr. Linda. Patient is currently maintained on IV antibiotics in the form of vancomycin and Flagyl and will continue at this time. Patient did have an episode of hypoglycemia yesterday and was initiated on D5 although blood sugars have been elevated and will discontinue the D5 at this time. Will monitor blood sugars closely. Currently no reports of chest pain, shortness of breath, or palpitations. Patient is afebrile. No reports of nausea or vomiting and patient is currently nothing by mouth for the procedure. 01/13/2020 Patient is seen and evaluated in follow-up status post left great toe amputation with Dr. Linda yesterday. Patient's blood sugars continue to be elevated and patient is to continue on long-acting along with sliding scale. Currently patient has no reports of chest pain, shortness of breath, or palpitations. Patient is afebrile. No reports of nausea or vomiting and patient is tolerating diet. Potassium slightly elevated at 5.2 today, creatinine is 1.09. Will repeat a.m. labs. Patient is continued on IV antibiotics in the form of vancomycin and oral Flagyl and will continue at this time while awaiting cultures. Infectious disease is following. 01/14/2020 Patient is seen and evaluated in follow-up and recently underwent left great toe amputation and is being closely monitored. Blood sugars continue to be variable and will adjust long-acting 35 units twice daily and continue sliding scale. Patient is tolerating diet with no reports of nausea or vomiting noted. Patient states that she feels her breathing has become more wet and states she normally takes Lasix 80 mg in the morning along with 40 mg in the afternoon and at bed. Will resume oral Lasix 40 mg twice daily and monitor closely. Creatinine today is 1.03. Will obtain a chest x-ray. Patient is currently on 3 L of oxygen via nasal cannula and states she normally wears oxygen in the outpatient setting. Patient does have albuterol treatments ordered. Dr. Linda following and changed the dressing of the left great toe this morning. Minimal dried blood noted on the previous dressing. To continue with local wound care and patient instructed to continue with non-weightbearing and elevate the extremity while at rest. When discussing with the patient about discharge planning needs patient is adamant about returning home once discharged. Patient is currently maintained on IV antibiotics in the form of vancomycin and will continue at this time. Infectious disease is following. Review of systems: Constitutional: No reports of fatigue, no reports of fever or chills Cardiovascular: No reports of chest pain or palpitations Respiratory: Reports mild shortness of breath, no reports of cough GI: No reports of dysuria or retention : No reports of nausea, vomiting, or diarrhea Neurovascular: No reports of weakness, no reports of numbness Active Medications Acetaminophen (Tylenol Tab) 650 mg PO Q6HR PRN PRN Reason: Mild Pain or Fever > 100.5 Acetaminophen/Codeine Phosphate (Tylenol #3) 1 each PO Q4HR PRN PRN Reason: Moderate Pain Last Admin: 01/10/20 23:20 Dose: 1 each Documented by: Hydrocodone Bitart/Acetaminophen (Magna 5-325) 1 each PO Q6HR PRN PRN Reason: Pain Last Admin: 01/13/20 21:30 Dose: 1 each Documented by: Albuterol Sulfate (Ventolin Nebulized) 2.5 mg INHALATION RT-QID PRN PRN Reason: Shortness Of Breath Allopurinol (Zyloprim) 300 mg PO DAILY [facility] Last Admin: 01/14/20 09:10 Dose: 300 mg Documented by: Alprazolam (Xanax) 0.25 mg PO TID PRN PRN Reason: Anxiety Aspirin (Aspirin) 81 mg PO DAILY [facility] Last Admin: 01/14/20 09:09 Dose: 81 mg Documented by: Baclofen (Lioresal) 10 mg PO TID PRN PRN Reason: Muscle Pain Buspirone HCl (Buspar) 20 mg PO BID [facility] Last Admin: 01/14/20 09:09 Dose: 20 mg Documented by: Buspirone HCl (Buspar) 2.5 mg PO BID [facility] Last Admin: 01/14/20 09:12 Dose: 2.5 mg Documented by: Ergocalciferol (Vitamin D2) 50,000 unit PO Q30D [facility] Last Admin: 01/12/20 07:57 Dose: 50,000 unit Documented by: Ferrous Sulfate (Feosol) 325 mg PO DAILY [facility] Last Admin: 01/14/20 09:11 Dose: 325 mg Documented by: Folic Acid (Folic Acid) 1 mg PO DAILY [facility] Last Admin: 01/14/20 09:11 Dose: 1 mg Documented by: Furosemide (Lasix) 40 mg PO BID@0900,1600 [facility] Heparin Sodium (Porcine) (Heparin) 5,000 unit SQ Q12HR [facility] Last Admin: 01/14/20 09:08 Dose: 5,000 unit Documented by: Vancomycin HCl 2,000 mg/ (Sodium Chloride) 500 mls @ 167 mls/hr IVPB Q24HR@1200 [facility] Last Admin: 01/14/20 12:01 Dose: 167 mls/hr Documented by: Lactated Ringer's (Lactated Ringers) 1,000 mls @ 20 mls/hr IV .Q24H [facility] Last Admin: 01/13/20 21:11 Dose: Not Given Documented by: Sodium Chloride (Saline 0.9%) 1,000 mls @ 20 mls/hr IV .Q24H [facility] Last Admin: 01/14/20 12:00 Dose: Not Given Documented by: Ibuprofen (Motrin) 400 mg PO Q6HR PRN PRN Reason: Mild Pain or Fever > 100.5 Insulin Aspart (Novolog) [address] [facility]; Protocol Last Admin: 01/14/20 12:00 Dose: 8 unit Documented by: Insulin Human NPH (Humulin N) 35 unit SQ BID [facility] Isosorbide Mononitrate (Imdur) 30 mg PO DAILY [facility] Last Admin: 01/14/20 09:09 Dose: 30 mg Documented by: Metolazone (Zaroxolyn) 5 mg PO MOFR [facility] Last Admin: 01/14/20 09:13 Dose: 5 mg Documented by: Metoprolol Tartrate (Lopressor) 50 mg PO BID [facility] Last Admin: 01/14/20 09:11 Dose: 50 mg Documented by: Naloxone HCl (Narcan) 0.2 mg IV Q2M PRN PRN Reason: Opioid Reversal Non-Formulary Medication (Dulaglutide [Trulicity]) 1.5 mg SQ FR [facility] Last Admin: 01/07/20 22:30 Dose: Not Given Documented by: Ondansetron HCl (Zofran) 4 mg IVP Q8HR PRN PRN Reason: Nausea And Vomiting Pantoprazole Sodium (Protonix) 40 mg PO DAILY [facility] Last Admin: 01/14/20 09:12 Dose: 40 mg Documented by: Pravastatin Sodium (Pravachol) 20 mg PO DAILY [facility] Last Admin: 01/14/20 09:11 Dose: 20 mg Documented by: Pregabalin (Lyrica) 300 mg PO BID [facility] Last Admin: 01/14/20 09:10 Dose: 300 mg Documented by: Spironolactone (Aldactone) 25 mg PO DAILY [facility] Last Admin: 01/14/20 09:10 Dose: 25 mg Documented by: Temazepam (Restoril) 15 mg PO HS PRN PRN Reason: Insomnia Venlafaxine HCl (Effexor Xr) 150 mg PO DAILY [facility] Last Admin: 01/14/20 09:11 Dose: 150 mg Documented by: Objective - Vital Signs Vital signs: Vital Signs Temp 98.0 F 01/14/20 06:42 Pulse 63 01/14/20 06:42 Resp 18 01/14/20 06:42 BP 156/76 01/14/20 06:42 Pulse Ox 96 01/14/20 06:42 Intake & Output 01/13/20 01/14/20 01/14/20 18:59 06:59 18:59 Intake Total 540 Balance 540 Weight 127 kg Intake: Oral 540 Other: Voiding Method Bedside Commode Bedside Commode # Voids 2 1 # Bowel Movements 1 - Exam GENERAL: The patient is alert and oriented x3, not in any acute distress. Well developed, well nourished. Temp is 98.0F, pulse is 63, respirations are 18, blood pressure is 156/76, oxygen saturation is 96% on 3 L via nasal cannula HEENT: Pupils are round and equally reacting to light. EOMI. No scleral icterus. No conjunctival pallor. Normocephalic, atraumatic. No pharyngeal erythema. No thyromegaly. CARDIOVASCULAR: S1 and S2 present. No murmurs, rubs, or gallops. PULMONARY: Diminished breath sounds at the bases with a few scattered rhonchi noted. ABDOMEN: Soft, nontender, nondistended, normoactive bowel sounds. No palpable organomegaly. MUSCULOSKELETAL: No joint swelling or deformity. EXTREMITIES: No cyanosis, clubbing, or pedal edema. NEUROLOGICAL: Gross neurological examination did not reveal any focal deficits. SKIN: Left great toe amputation with dressings and Patrick wraps noted status post surgery that are dry and intact. Recent dressing change this morning by surgery. - Labs CBC & Chem 7: 01/14/20 09:03 01/14/20 09:03 Labs: Abnormal Lab Results - Last 24 Hours (Table) 01/13/20 01/13/20 01/14/20 Range/Units 16:34 20:42 06:42 RBC (3.80-5.40) m/uL Hgb (11.4-16.0) gm/dL Hct (34.0-46.0) % MCHC (31.0-37.0) g/dL RDW (11.5-15.5) % Chloride (98-107) mmol/L BUN (7-17) mg/dL Glucose (74-99) mg/dL POC Glucose (mg/dL) 253 H 258 H 236 H (75-99) mg/dL 01/14/20 01/14/20 01/14/20 Range/Units 09:03 09:03 11:16 RBC 3.29 L (3.80-5.40) m/uL Hgb 9.0 L (11.4-16.0) gm/dL Hct 30.7 L (34.0-46.0) % MCHC 29.4 L (31.0-37.0) g/dL RDW 16.2 H (11.5-15.5) % Chloride 108 H (98-107) mmol/L BUN 23 H (7-17) mg/dL Glucose 227 H (74-99) mg/dL POC Glucose (mg/dL) 320 H (75-99) mg/dL Microbiology - Last 24 Hours (Table) 01/07/20 16:11 Blood Culture - Final Blood No Growth after 144 hours Assessment and Plan Assessment: -Left great toe ulcer infected: Patient continues on IV antibiotics in the form of vancomycin and will continue at this time. -Status post left great toe amputation at the metatarsophalangeal joint postop day 2 -Coronary disease -diabetes mellitus with uncontrolled elevated blood sugars and an episode of hypoglycemia, will continue to monitor blood sugars closely and continue sliding scale and long-acting at this time. -Possible chronic kidney disease stage II from diabetic nephropathy -COPD without any acute exacerbation -Diabetic peripheral neuropathy -Hypertension -Hyperlipidemia -Obstructive sleep apnea -Depression Plan: Patient to continue on IV antibiotics in the form of vancomycin. Infectious disease is following. Status post left great toe amputation with Dr. Linda. Awaiting cultures. Blood sugars continued to be elevated and patient has been resumed on long-acting along with sliding scale and will continue at this time. Insulin adjustments have been made. Continue to monitor blood sugars closely. Will repeat a.m. labs. Patient is to continue with nonweightbearing of the left foot. Patient is having some mild shortness of breath that is slightly worsened and states she normally takes Lasix. Will resume Lasix in order a chest x-ray. Further recommendations to follow.
--- NOTE | 2020-01-14 15:03 | XR ---
EXAMINATION TYPE: XR chest 1V portable DATE OF EXAM: 01/14/2020 COMPARISON: NONE HISTORY: Shortness of breath TECHNIQUE: Single frontal view of the chest is obtained. FINDINGS: Heart is enlarged and there is bilateral consolidation with small effusion. Hypertrophic d egenerative changes spine. Atherosclerotic change aorta. No pneumothorax. IMPRESSION: Cardiomegaly and bilateral infiltrate and small effusion.
[2020-01-14] MEDS: FUROSEMIDE 40 MG TAB PO SCH (15:55)
[2020-01-14 16:51] LABS: Glucose,Whole Blood 342 mg/dL (75-99)
[2020-01-14 20:31] LABS: Glucose,Whole Blood 272 mg/dL (75-99)
[2020-01-14] MEDS: NON FORMULARY DRUG (Dulaglutide [Trulicity] 1.5 MG) SQ SCH (21:30)
--- NOTE | 2020-01-14 23:03 | PN ---
PROGRESS NOTE DATE OF SERVICE: 01/14/2020 REASON FOR FOLLOWUP: Left big toe diabetic foot infection. INTERVAL HISTORY: Patient is currently afebrile. The patient is breathing comfortably. The patient denies having any chest pain. No shortness of breath or cough. No nausea. No vomiting. No abdominal pain or any worsening pain to the left foot. PHYSICAL EXAMINATION: Blood pressure 145/65 with a pulse of 56. Temperature 98.3. She is 98% on 3 L nasal cannula. General description is a middle-aged female up in the bed in no distress. Respiratory system: Unlabored breathing. Clear to auscultation anteriorly. Heart S1, S2. Regular rate and rhythm. Abdomen soft, no tenderness. Left foot is currently dressed up. No obvious drainage on the dressing. LABS: Hemoglobin 9.4, white count 6.7, BUN of 23, creatinine 1.03. DIAGNOSTIC IMPRESSION AND PLAN: Patient with left big toe diabetic foot infection, chronic nonhealing, status post left big toe amputation with infected part removed. The patient will not need to be on long- term IV antibiotic therapy pending. Discontinue vancomycin. Discharge. Continue supportive care. MMODL / IJN: [id number] /
[2020-01-15] MEDS: LACTATED RINGERS 1,000 ML IV SCH (01:25)
[2020-01-15 07:01] LABS: Glucose,Whole Blood 240 mg/dL (75-99)
[2020-01-15] MEDS: INSULIN ASPART (NovoLOG) 100 UNIT/ML VIAL SQ SCH ×4 (08:56→21:55)
[2020-01-15 09:24] LABS: Anisocytosis Slight; Basophils # (A) 0.1 k/uL (0-0.2); Basophils % (A) 1 %; Eosinophils # (A) 0.2 k/uL (0-0.7); Eosinophils % (A) 2 %; HCT 31.8 % (34.0-46.0); HGB 9.7 gm/dL (11.4-16.0); Hypochromasia Marked; Lymphocytes # (A) 1.1 k/uL (1.0-4.8); Lymphocytes % (A) 15 %; MCHC 30.5 g/dL (31.0-37.0); MCV 94.9 fL (80.0-100.0); Mean Platelet Volume 7.8; Monocytes # (A) 0.4 k/uL (0-1.0); Monocytes % (A) 5 %; Neutrophils # (A) 5.2 k/uL (1.3-7.7); Neutrophils % (A) 74 %; Platelet Count 223 k/uL (150-450); RBC 3.35 m/uL (3.80-5.40); RDW 16.7 % (11.5-15.5); WBC 6.9 k/uL (3.8-10.6)
[2020-01-15 09:38] LABS: Potassium 5.1 mmol/L (3.5-5.1)
[2020-01-15] MEDS: busPIRone HCl 10 MG TAB PO SCH ×2 (09:40→21:55)
[2020-01-15] MEDS: PRAVASTATIN SODIUM 20 MG TAB PO SCH (09:41)
[2020-01-15] MEDS: ALLOPURINOL 300 MG TAB PO SCH (09:41)
[2020-01-15] MEDS: FOLIC ACID 1 MG TAB PO SCH (09:41)
[2020-01-15] MEDS: FUROSEMIDE 40 MG TAB PO SCH ×2 (09:41→15:56)
[2020-01-15] MEDS: PREGABALIN 100 MG CAP PO SCH ×2 (09:42→21:54)
[2020-01-15] MEDS: FERROUS SULFATE 325 MG TAB PO SCH (09:42)
[2020-01-15] MEDS: ASPIRIN 81 MG PO SCH (09:42)
[2020-01-15] MEDS: VENLAFAXINE HCL ER 150 MG CAP PO SCH (09:43)
[2020-01-15] MEDS: SPIRONOLACTONE 25 MG TAB PO SCH (09:43)
[2020-01-15] MEDS: busPIRone HCl 5 MG TAB PO SCH ×2 (09:43→21:54)
[2020-01-15] MEDS: METOPROLOL TARTRATE 50 MG TAB PO SCH ×2 (09:43→21:54)
[2020-01-15] MEDS: PANTOPRAZOLE 40 MG TABLET PO SCH (09:43)
[2020-01-15] MEDS: INSULIN NPH 300 UNIT/3 ML VIAL SQ SCH ×2 (09:45→21:56)
[2020-01-15] MEDS: ISOSORBIDE MONONITRATE ER 30 MG TAB.ER.24H PO SCH (09:50)
[2020-01-15] MEDS: HEPARIN SODIUM,PORCINE 5,000 UNIT/ML 1 ML VIAL SQ SCH ×2 (09:50→21:54)
[2020-01-15 11:46] LABS: Glucose,Whole Blood 292 mg/dL (75-99)
[2020-01-15] MEDS: SODIUM CHLORIDE 0.9% 1,000 ML IV SCH (11:59)
[2020-01-15] MEDS: VANCOMYCIN 2,000 MG in SODIUM CHLORIDE 0.9% 500 ML 500 ML IVPB SCH (12:57)
[2020-01-15 17:08] LABS: Glucose,Whole Blood 346 mg/dL (75-99)
[2020-01-15 20:42] LABS: Glucose,Whole Blood 300 mg/dL (75-99)
--- NOTE | 2020-01-15 21:48 | PN ---
PROGRESS NOTE DATE OF SERVICE: 01/15/2020 This 59-year-old woman was admitted after left great toe amputation, being closely monitored. No chest pain. No palpitations. No fever. ECF rehab is being planned. PHYSICAL EXAMINATION: Alert and oriented x3. Pulse 56, blood pressure 130/60, respiration 18, temperature 98.1, pulse ox 97% on 2 L. HEENT: Conjunctivae normal. Oral mucosa moist. NECK: No jugular venous distention. No lymph node enlargement. CARDIOVASCULAR: S1, S2, muffled. No S3, no S4, RESPIRATORY: Diminished breath sounds at the bases. No rhonchi, no crackles. ABDOMEN: Soft, nontender. LEGS: Status post surgery. NERVOUS SYSTEM: No focal motor or sensory deficits. LABS: WBC 6.9, hemoglobin 9.7, glucose 225. ASSESSMENT: 1. Left great toe ulcer, infected status post left great toe amputation at the metatarsophalangeal joint. 2. Coronary artery disease. 3. Diabetes mellitus type 2, uncontrolled with hyperglycemia. 4. Chronic kidney disease stage 2. 5. Chronic obstructive pulmonary disease. 6. Diabetic peripheral neuropathy. 7. Hypertension. 8. Hyperlipidemia. 9. Obstructive sleep apnea. 10.Depression. RECOMMENDATIONS AND DISCUSSION: Continue current management and symptomatic treatment. Otherwise at this time I recommend PT/OT evaluation, possible ECF rehab. Guarded prognosis. Further recommendations to follow. MMODL / IJN: [id number] /
--- NOTE | 2020-01-15 22:18 | PN ---
PROGRESS NOTE DATE OF SERVICE: 01/15/2020 REASON FOR FOLLOWUP: Left big toe diabetic foot infection. INTERVAL HISTORY: Patient is currently afebrile. The patient is breathing comfortably. Denies having any chest pain. No shortness of breath or cough. No nausea or vomiting. No abdominal pain. No pain to the left big toe. PHYSICAL EXAMINATION: Blood pressure 113/60 with a pulse of 56, temperature 98.1. She is 97% on 2 L nasal cannula. General description is a middle-aged female up in the chair in no distress. Respiratory system: Unlabored breathing, clear to auscultation anteriorly. Heart S1, S2. Regular rate and rhythm. Abdomen soft, no tenderness. LABS: Hemoglobin 9.7, white count 6.9, BUN of 23, creatinine 0.98. DIAGNOSTIC IMPRESSION AND PLAN: Patient with left big toe diabetic foot infection, failing medical treatment, status post amputation with infected part removed. Will not need long-term antibiotic. Continue with vancomycin while inpatient. Local care per Surgery. Continue supportive care. MMODL / IJN: [id number] /
--- NOTE | 2020-01-15 22:33 | PN ---
PROGRESS NOTE Sharon is a 59-year-old diabetic female. Patient had a left big toe amputation for an infected big toe with gangrene changes. The patient is on IV antibiotic under care of Infectious Disease. The patient dressing has been changed today. Incision site is clean. There is no discharge or redness noted. The patient is still on nonweightbearing. If the patient goes home, we will see her in my office on Friday. Still recommend nonweightbearing with change of dressing every 48 hours. MMODL / IJN: [id number] /
[2020-01-16] MEDS: LACTATED RINGERS 1,000 ML IV SCH ×2 (01:40→21:06)
[2020-01-16 07:43] LABS: Glucose,Whole Blood 263 mg/dL (75-99)
[2020-01-16] MEDS: INSULIN NPH 300 UNIT/3 ML VIAL SQ SCH ×2 (07:53→21:05)
[2020-01-16] MEDS: HEPARIN SODIUM,PORCINE 5,000 UNIT/ML 1 ML VIAL SQ SCH ×2 (07:53→21:04)
[2020-01-16] MEDS: INSULIN ASPART (NovoLOG) 100 UNIT/ML VIAL SQ SCH ×4 (07:54→21:05)
[2020-01-16] MEDS: FERROUS SULFATE 325 MG TAB PO SCH (07:54)
[2020-01-16] MEDS: METOPROLOL TARTRATE 50 MG TAB PO SCH ×2 (07:54→21:04)
[2020-01-16] MEDS: busPIRone HCl 10 MG TAB PO SCH ×2 (07:55→21:05)
[2020-01-16] MEDS: FOLIC ACID 1 MG TAB PO SCH (07:55)
[2020-01-16] MEDS: VENLAFAXINE HCL ER 150 MG CAP PO SCH (07:55)
[2020-01-16] MEDS: SPIRONOLACTONE 25 MG TAB PO SCH (07:55)
[2020-01-16] MEDS: PREGABALIN 100 MG CAP PO SCH ×2 (07:56→21:05)
[2020-01-16] MEDS: ALLOPURINOL 300 MG TAB PO SCH (07:56)
[2020-01-16] MEDS: PRAVASTATIN SODIUM 20 MG TAB PO SCH (07:56)
[2020-01-16] MEDS: FUROSEMIDE 40 MG TAB PO SCH ×2 (07:57→16:06)
[2020-01-16] MEDS: busPIRone HCl 5 MG TAB PO SCH ×2 (07:57→21:04)
[2020-01-16] MEDS: PANTOPRAZOLE 40 MG TABLET PO SCH (07:57)
[2020-01-16] MEDS: ASPIRIN 81 MG PO SCH (07:58)
[2020-01-16] MEDS: ISOSORBIDE MONONITRATE ER 30 MG TAB.ER.24H PO SCH (07:58)
[2020-01-16 12:08] LABS: Glucose,Whole Blood 278 mg/dL (75-99)
[2020-01-16] MEDS: VANCOMYCIN 2,000 MG in SODIUM CHLORIDE 0.9% 500 ML 500 ML IVPB SCH (12:19)
[2020-01-16] MEDS: SODIUM CHLORIDE 0.9% 1,000 ML IV SCH (12:19)
[2020-01-16 17:01] LABS: Glucose,Whole Blood 292 mg/dL (75-99)
[2020-01-16 20:30] LABS: Glucose,Whole Blood 299 mg/dL (75-99)
--- NOTE | 2020-01-17 02:09 | PN ---
PROGRESS NOTE DATE OF SERVICE: 01/16/2020 This 59-year-old woman was admitted with left great toe ulcer had amputation. No chest pain. No palpitations. No fever. PHYSICAL EXAMINATION: On exam, alert and oriented x3. Pulse 56, blood pressure 158/75, respirations 16, temperature 97.8, pulse ox 99% on 3 L. HEENT: Conjunctivae normal. NECK: No jugular venous distention. CARDIOVASCULAR: S1, S2 muffled. RESPIRATORY: Breath sounds diminished at the bases. No rhonchi, no crackles. ABDOMEN: Soft. LEGS: Left foot status post surgery. NERVOUS SYSTEM: No focal deficits. LABS: Accu-Cheks 278 and 292. Otherwise, hemoglobin 9.7. ASSESSMENT: 1. Left great toe ulcer infected, status post left great toe amputation at the metatarsophalangeal joint. 2. Coronary artery disease. 3. Diabetes mellitus type 2, uncontrolled with hyperglycemia. 4. Chronic kidney disease stage 2. 5. Chronic obstructive pulmonary disease. 6. Diabetic peripheral neuropathy. 7. Hypertension. 8. Hyperlipidemia. 9. Obstructive sleep apnea. 10.Depression. RECOMMENDATIONS AND DISCUSSION: Recommend to continue current medications. Continue with monitoring and symptomatic treatment. Otherwise at this time I recommend continue with antibiotics. Otherwise, we will increase the dose of Humulin N and continue to monitor. Further recommendations to follow. Blood sugars are definitely significantly elevated. MMODL / IJN: [id number] /
--- NOTE | 2020-01-17 06:43 | PN ---
PROGRESS NOTE DATE OF SERVICE: 01/16/2020 REASON FOR FOLLOWUP: Left big toe diabetic foot infection. INTERVAL HISTORY: The patient is currently afebrile, has been breathing comfortably. The patient denies having any chest pain. No shortness of breath or cough. No nausea, no vomiting. No abdominal pain or pain to the left foot area. PHYSICAL EXAMINATION: Blood pressure 158/75 with a pulse of 56, temperature 97.8. She is 99% on 3 L nasal cannula. General description is a middle-aged female up in the bed in no distress. RESPIRATORY SYSTEM: Unlabored breathing, clear to auscultation anteriorly. HEART: S1, S2. Regular rate and rhythm. ABDOMEN: Soft, no tenderness. Left foot is currently dressed up. No obvious drainage on the dressing. LABS: Creatinine 1.01. DIAGNOSTIC IMPRESSION AND PLAN: Patient with left big toe diabetic foot infection. Cultures showing Staphylococcus epidermidis 2 species, those have been oxacillin sensitive. Will discontinue the vancomycin. Cefazolin while inpatient and finish therapy with short course of oral Keflex. Continue supportive care. MMODL / IJN: [id number] /
[2020-01-17 07:05] LABS: Glucose,Whole Blood 407 mg/dL (75-99)
[2020-01-17 07:27] VITALS: BP 138/46; PULSE 59; RESP 18; TEMP 97.9
[2020-01-17] MEDS: METOLAZONE 5 MG TAB PO SCH (08:33)
[2020-01-17] MEDS: INSULIN ASPART (NovoLOG) 100 UNIT/ML VIAL SQ SCH ×2 (08:34→13:00)
[2020-01-17] MEDS: ISOSORBIDE MONONITRATE ER 30 MG TAB.ER.24H PO SCH (08:34)
[2020-01-17] MEDS: PRAVASTATIN SODIUM 20 MG TAB PO SCH (08:34)
[2020-01-17] MEDS: busPIRone HCl 10 MG TAB PO SCH (08:34)
[2020-01-17] MEDS: busPIRone HCl 5 MG TAB PO SCH (08:34)
[2020-01-17] MEDS: FERROUS SULFATE 325 MG TAB PO SCH (08:34)
[2020-01-17] MEDS: FOLIC ACID 1 MG TAB PO SCH (08:34)
[2020-01-17] MEDS: PREGABALIN 100 MG CAP PO SCH (08:35)
[2020-01-17] MEDS: METOPROLOL TARTRATE 50 MG TAB PO SCH (08:35)
[2020-01-17] MEDS: INSULIN NPH 300 UNIT/3 ML VIAL SQ SCH (08:35)
[2020-01-17] MEDS: SPIRONOLACTONE 25 MG TAB PO SCH (08:35)
[2020-01-17] MEDS: ALLOPURINOL 300 MG TAB PO SCH (08:35)
[2020-01-17] MEDS: FUROSEMIDE 40 MG TAB PO SCH (08:35)
[2020-01-17] MEDS: PANTOPRAZOLE 40 MG TABLET PO SCH (08:36)
[2020-01-17] MEDS: ASPIRIN 81 MG PO SCH (08:36)
[2020-01-17] MEDS: VENLAFAXINE HCL ER 150 MG CAP PO SCH (08:36)
[2020-01-17] MEDS: HEPARIN SODIUM,PORCINE 5,000 UNIT/ML 1 ML VIAL SQ SCH (08:36)
[2020-01-17] MEDS: SODIUM CHLORIDE 0.9% 1,000 ML IV SCH (09:20)
[2020-01-17] MEDS ORDERED: VANCOMYCIN TROUGH DUE 1 EACH MISC MISCELLANE ONE (11:00)
[2020-01-17 11:57] LABS: Glucose,Whole Blood 345 mg/dL (75-99)
--- NOTE | 2020-01-17 13:16 | CDI ---
Documentation Clarification Form Date: 01/17/2020 12:50:42 PM From: Melva Palma RN CCDS Admit Date: 01/09/2020 10:29:00 AM Patient Name: Sharon Roberto Visit Number: [id number] Discharge Date: ATTENTION: The Clinical Documentation Specialists (CDI) and [facility] Coding Staff appreciate your assistance in clarifying documentation. Please respond to the clarification below the line at the bottom and electronically sign. The CDI & [facility] Coding staff will review the response and follow-up if needed. Please note: Queries are made part of the Legal Health Record. If you have any questions, please contact the author of this message via ITS. Dr. Violet Ballard History of congestive heart failure is documented in the H&P 01/06 History/Risk Factors: 59-year-old female presents to the ED with left big toe ulcer failed outpt treatment for cellulitis. Medical history CAD, CHF, COPD, TIA , DM 2 Clinical Indicators: 01/06 Admission Vitals: BP 105/49; HR 76; Temp 98.5 oral; RR 16; SpO2 94% room air. Echocardiogram Results: 01/13 Chest X Ray: Cardiomegaly and bilateral infiltrate and small effusion. Treatment: 01/07 Lopressor 50mg PO BID; 01/07 Imdur 30mg PO BID; 01/13 Lasix 40mg PO BID; In your professional opinion, can you please clarify the acuity and type of CHF if known? Chronic Systolic Heart Failure Chronic Diastolic Heart Failure Chronic Systolic & Diastolic Heart Failure Unable to Determine Other, please specify (Last Revision: October 2017) Unable to Determine MTDD
[2020-01-17] MEDS ORDERED: INSULIN ASPART (NovoLOG) 100 UNIT/ML VIAL SQ ONE (14:11)
--- NOTE | 2020-01-17 15:34 | PN ---
PROGRESS NOTE DATE OF SERVICE: 01/17/2020 REASON FOR FOLLOWUP: Left big toe diabetic foot infection. INTERVAL HISTORY: The patient is currently afebrile. Patient is breathing comfortably. Patient denies having any chest pain, no shortness of breath or cough. No nausea, no vomiting, no abdominal pain or pain to the left foot area. PHYSICAL EXAMINATION: Blood pressure 138/46, pulse of 59, temperature 98.9. She is 96% on room air. General description is a middle-aged female, lying in bed in no distress. RESPIRATORY SYSTEM: Unlabored breathing, clear to auscultation anteriorly. HEART: S1, S2. Regular rate and rhythm. ABDOMEN: Soft, no tenderness. Left big toe amputation site looks clean. No significant redness or drainage. LABS: Creatinine 1.01. Wound culture with oxacillin sensitive Staph has been diagnosed. DIAGNOSTIC IMPRESSION AND PLAN: Patient with left big toe diabetic foot infection with chronic nonhealing wound, status post left big toe amputation as infected part has been removed. The patient had no bacteremia. She will not need IV antibiotic on discharge. Recommending Keflex 500 mg p.o. q.6 hours for another 7-10 days. Local care per Surgery. MMODL / IJN: [id number] /
--- NOTE | 2020-01-18 08:54 | P.DS ---
Providers Date of admission: 01/09/20 10:29 Expected date of discharge: 01/18/20 Attending physician: Violet Ballard Consults: 01/07/20 17:43 Consult Physician Stat Consulting Provider: Justina Buckner Consult Reason/Comments: L great toe wound Do you want consulting provider notified?: Yes 01/09/20 12:56 Consult Physician Routine Consulting Provider: Brooks Linda Consult Reason/Comments: Left great toe wound Do you want consulting provider notified?: Yes Primary care physician: Richa Lopez [facility] Course: Final diagnosis Left great toe ulcer infected, status post left great toe amputation at the metatarsophalangeal joint Coronary artery disease Diabetes mellitus type 2, uncontrolled with hyperglycemia Chronic kidney disease stage II Chronic obstructive pulmonary disease Diabetic peripheral neuropathy Hypertension Hyperlipidemia Obstructive sleep apnea Depression Heart failure history, unknown if chronic diastolic or systolic, unable to determine No code Discharge disposition Patient is being discharged in a stable condition with guarded prognosis to home. Patient will continue with home care in the outpatient setting. Patient will follow-up with Dr. Richa Lopez in the outpatient setting upon discharge. Patient will also follow-up with Dr. Linda in the outpatient setting. Patient will continue on oral antibiotics in the form of Keflex 500 mg 3 times daily for the next 7 days. Total time taken is greater than 35 minutes. History of present illness This is a 59-year-old female who was recently admitted with left great toe ulcer with infection and underwent amputation and was being closely monitored. Patient was seen and evaluated by Dr. Linda along with infectious disease and maintained on antibiotics. Patient underwent amputation of the left great toe at the metatarsal phalangeal joint. Cultures finalized showing Staphylococcus epidermidis and patient was maintained on cefazolin and will continue on oral Keflex 500 mg 3 times daily for the next one week. Patient will follow-up with Dr. Linda at the wound center this week. Patient also had elevated blood sugars and will resume home medications. Patient instructed to keep a diary of blood sugar readings before meals at bedtime for primary care follow-up. Patient will be going home with home care in the outpatient setting. Currently no reports of chest pain, shortness of breath, or palpitations. Patient is afebrile. No reports of nausea or vomiting and patient is tolerating diet. Patient will be discharged home today. On exam vital signs are stable. Temp is 97.9F, pulse is 59, respirations are 18, blood pressure is 138/46, oxygen saturation is 96% on room air. Cardio S1, S2 are muffled. Respiratory system shows diminished breath sounds at the bases with no wheezing or rhonchi noted. Abdomen is soft and and non-tender. Nervous system shows no focal deficits. Please refer to medication reconciliation sheet for a list of medications. Patient Condition at Discharge: Stable Plan - Discharge Summary Discharge Rx Participant: No New Discharge Prescriptions: New Cephalexin [Keflex] 500 mg PO Q8HR 7 Days #21 cap Furosemide [Lasix] 40 mg PO BID@0900,1600 tab HYDROcodone/APAP 5-325MG [[place] 5-325] 1 tab PO Q6HR PRN 3 Days #12 tab PRN Reason: Pain Continue Omeprazole 20 mg PO BID Ferrous Sulfate [Feosol] 325 mg PO DAILY Ergocalciferol (Vitamin D2) [Vitamin D2] 1 cap PO Q30D Spironolactone [Aldactone] 25 mg PO DAILY Metoprolol Tartrate [Lopressor] 50 mg PO BID Pregabalin [Lyrica] 300 mg PO BID Isosorbide Mononitrate [Isosorbide Mononitrate ER] 30 mg PO DAILY Venlafaxine HCl [Effexor XR] 150 mg PO DAILY Allopurinol [Zyloprim] 300 mg PO DAILY Dulaglutide [Trulicity] 1.5 mg SQ FR Pravastatin Sodium [Pravachol] 20 mg PO DAILY Albuterol Sulfate [Proair Hfa] 2 puff INHALATION RT-QID PRN PRN Reason: Shortness Of Breath Aspirin EC [Ecotrin Low Dose] 81 mg PO DAILY Folic Acid 1 mg PO DAILY 30 Days #30 tab Metolazone [Zaroxolyn] 5 mg PO MOFR Folic Acid 1 mg PO DAILY busPIRone HCL 22.5 mg PO BID Baclofen 10 mg PO TID PRN PRN Reason: Muscle Pain Insulin NPH Human Isophane [NovoLIN N] 20 units SQ Q12H Insulin Regular, Human [NovoLIN R] See Protocol SQ ACHS Insulin Regular, Human [NovoLIN R] 55 unit SQ ACHS Discontinued Cefuroxime Axetil [Ceftin] 500 mg PO BID Azithromycin [Zithromax Z-pack] See Taper PO DIRECTED Discharge Medication List Omeprazole 20 mg PO BID 08/13/17 [History] Allopurinol [Zyloprim] 300 mg PO DAILY 12/26/17 [History] Ergocalciferol (Vitamin D2) [Vitamin D2] 1 cap PO Q30D 12/26/17 [History] Ferrous Sulfate [Feosol] 325 mg PO DAILY 12/26/17 [History] Isosorbide Mononitrate [Isosorbide Mononitrate ER] 30 mg PO DAILY 12/26/17 [History] Metoprolol Tartrate [Lopressor] 50 mg PO BID 12/26/17 [History] Pregabalin [Lyrica] 300 mg PO BID 12/26/17 [History] Spironolactone [Aldactone] 25 mg PO DAILY 12/26/17 [History] Venlafaxine HCl [Effexor XR] 150 mg PO DAILY 12/26/17 [History] Albuterol Sulfate [Proair Hfa] 2 puff INHALATION RT-QID PRN 10/06/19 [History] Aspirin EC [Ecotrin Low Dose] 81 mg PO DAILY 10/06/19 [History] Dulaglutide [Trulicity] 1.5 mg SQ FR 10/06/19 [History] Pravastatin Sodium [Pravachol] 20 mg PO DAILY 10/06/19 [History] Folic Acid 1 mg PO DAILY 30 Days #30 tab 10/12/19 [Rx] Baclofen 10 mg PO TID PRN 01/07/20 [History] Folic Acid 1 mg PO DAILY 01/07/20 [History] Insulin NPH Human Isophane [NovoLIN N] 20 units SQ Q12H 01/07/20 [History] Insulin Regular, Human [NovoLIN R] 55 unit SQ ACHS 01/07/20 [History] Insulin Regular, Human [NovoLIN R] See Protocol SQ ACHS 01/07/20 [History] Metolazone [Zaroxolyn] 5 mg PO MOFR 01/07/20 [History] busPIRone HCL 22.5 mg PO BID 01/07/20 [History] Cephalexin [Keflex] 500 mg PO Q8HR 7 Days #21 cap 01/17/20 [Rx] Furosemide [Lasix] 40 mg PO BID@0900,1600 tab 01/17/20 [Rx] HYDROcodone/APAP 5-325MG [[place] 5-325] 1 tab PO Q6HR PRN 3 Days #12 tab 01/17/20 [Rx] Follow up Appointment(s)/Referral(s): Richa Lopez MD [Primary Care Provider] - 01/19/20 2:15 pm Brooks Linda MD [STAFF PHYSICIAN] - 01/19/20 1:00 pm [facility] Visiting Nurse, [NON-STAFF] - Patient Instructions/Handouts: Cellulitis (DC) Activity/Diet/Wound Care/Special Instructions: Activity Limited until follow-up Continue antibiotics until finished Follow-up with primary care provider upon discharge Follow-up with Dr. Linda as instructed and scheduled Continue with local wound care of the left foot per Dr. Linda's recommendations Continue to monitor blood sugars before meals at bedtime closely and keep a diary of blood sugar readings and how much insulin you're using for primary care follow-up Discharge Disposition: HOME WITH HOME HEALTH SERVICES
== END 2020-01-17 15:20 | disposition home health service (06) | DRG 617 ==
LOC: EC 15:01 → 4SSUR 18:23 → OBSVTOIN 01-09 10:29 → 3SCARD 01-10 18:56 → 4SSUR 01-11 18:13
PROVIDERS: ADMIT Hospitalist; ATTEND Hospitalist
PROC: B41G1ZZ Fluoroscopy of Left Lower Extremity Arteries using Low Osmolar Contrast (ICD-10-PCS; 2020-01-10 16:50)
PROC: 0Y6Q0Z0 Detachment at Left 1st Toe, Complete, Open Approach (ICD-10-PCS; principal; 2020-01-12 09:00)
DX: E11.621 Type 2 diabetes mellitus with foot ulcer (principal); E11.52 Type 2 diabetes mellitus with diabetic peripheral angiopathy with gangrene; I13.0 Hypertensive heart and chronic kidney disease with heart failure and stage 1 through stage 4 chronic kidney disease, or unspecified chronic kidney disease; J96.11 Chronic respiratory failure with hypoxia; Z68.42 Body mass index [BMI] 45.0-49.9, adult; L97.522 Non-pressure chronic ulcer of other part of left foot with fat layer exposed; E11.22 Type 2 diabetes mellitus with diabetic chronic kidney disease; E11.42 Type 2 diabetes mellitus with diabetic polyneuropathy; E11.628 Type 2 diabetes mellitus with other skin complications; E11.649 Type 2 diabetes mellitus with hypoglycemia without coma; D63.1 Anemia in chronic kidney disease; I50.9 Heart failure, unspecified; N18.3 Chronic kidney disease, stage 3 (moderate); E11.65 Type 2 diabetes mellitus with hyperglycemia; Z11.59 Encounter for screening for other viral diseases; E66.9 Obesity, unspecified; E78.5 Hyperlipidemia, unspecified; F32.9 Major depressive disorder, single episode, unspecified; G47.33 Obstructive sleep apnea (adult) (pediatric); I25.10 Atherosclerotic heart disease of native coronary artery without angina pectoris; I25.2 Old myocardial infarction; J44.9 Chronic obstructive pulmonary disease, unspecified; K21.9 Gastro-esophageal reflux disease without esophagitis; L03.032 Cellulitis of left toe; B95.7 Other staphylococcus as the cause of diseases classified elsewhere; F41.9 Anxiety disorder, unspecified; G62.9 Polyneuropathy, unspecified; M15.9 Polyosteoarthritis, unspecified; M10.9 Gout, unspecified; Z79.4 Long term (current) use of insulin; Z79.82 Long term (current) use of aspirin; Z79.899 Other long term (current) drug therapy; Z86.14 Personal history of Methicillin resistant Staphylococcus aureus infection; Z86.718 Personal history of other venous thrombosis and embolism; Z87.01 Personal history of pneumonia (recurrent); Z87.891 Personal history of nicotine dependence; Z88.5 Allergy status to narcotic agent; I69.828 Other speech and language deficits following other cerebrovascular disease; Z99.81 Dependence on supplemental oxygen; Z98.51 Tubal ligation status; Z89.411 Acquired absence of right great toe; Z80.3 Family history of malignant neoplasm of breast; Z80.8 Family history of malignant neoplasm of other organs or systems; Z83.3 Family history of diabetes mellitus; Z83.49 Family history of other endocrine, nutritional and metabolic diseases
CPT/HCPCS: 36200; 36415; 71045; 75710; 78315; 80048; 80053; 80202; 81003; 82565; 83036; 83605; 84550; 85025; 85652; 86140; 87040; 87070; 87075; 87077; 87102; 87186; 87205; 96365; 96367; 99284

== ENCOUNTER 2020-01-24 15:29 | Emergency (ER) | payer MEDICARE ==
[2020-01-24 15:38] VITALS: BP 134/48; PULSE 74; RESP 18; TEMP 97.6
[2020-01-24] MEDS ORDERED: SULFAMETH-TMP DS STARTER PACK 2 TAB BTL PO STA (15:49)
[2020-01-24] MEDS ORDERED: SULFAMETHOX-TMP 800-160MG 1 EACH TAB PO STA (15:49)
--- NOTE | 2020-01-24 16:11 | ED ---
Wound/Laceration HPI - General Chief Complaint: Wound/Laceration Stated Complaint: Sore on R Leg Time Seen by Provider: 01/24/20 15:40 Source: patient, RN notes reviewed, old records reviewed Mode of arrival: wheelchair Limitations: physical limitation - History of Present Illness Initial Comments: This is a 59-year-old female DF she presents today for evaluation of some redness and drainage the back of her right calf. Patient states his believes is from the rocking chair that she uses. Currently on Keflex for toe infection prophylaxis. Patient denies any fevers (not appear to be changing. Sent in for evaluation by home visiting care nurse -: days(s) Extremity Location: Right: Lower Leg Place: home Patient Tetanus UTD: Yes Context: accidental Associated Symptoms: none - Related Data Home Medications Medication Instructions Recorded Confirmed Omeprazole 20 mg PO BID 08/13/17 01/07/20 Allopurinol [Zyloprim] 300 mg PO DAILY 12/26/17 01/07/20 Ergocalciferol (Vitamin D2) 1 cap PO Q30D 12/26/17 01/07/20 [Vitamin D2] Ferrous Sulfate [Feosol] 325 mg PO DAILY 12/26/17 01/07/20 Isosorbide Mononitrate [Isosorbide 30 mg PO DAILY 12/26/17 01/07/20 Mononitrate ER] Metoprolol Tartrate [Lopressor] 50 mg PO BID 12/26/17 01/07/20 Pregabalin [Lyrica] 300 mg PO BID 12/26/17 01/07/20 Spironolactone [Aldactone] 25 mg PO DAILY 12/26/17 01/07/20 Venlafaxine HCl [Effexor XR] 150 mg PO DAILY 12/26/17 01/07/20 Albuterol Sulfate [Proair Hfa] 2 puff INHALATION RT-QID PRN 10/06/19 01/07/20 Aspirin EC [Ecotrin Low Dose] 81 mg PO DAILY 10/06/19 01/07/20 Dulaglutide [Trulicity] 1.5 mg SQ FR 10/06/19 01/07/20 Pravastatin Sodium [Pravachol] 20 mg PO DAILY 10/06/19 01/07/20 Baclofen 10 mg PO TID PRN 01/07/20 01/07/20 Folic Acid 1 mg PO DAILY 01/07/20 01/07/20 Insulin NPH Human Isophane 20 units SQ Q12H 01/07/20 01/07/20 [NovoLIN N] Insulin Regular, Human [NovoLIN R] 55 unit SQ ACHS 01/07/20 01/07/20 Insulin Regular, Human [NovoLIN R] See Protocol SQ ACHS 01/07/20 01/07/20 Metolazone [Zaroxolyn] 5 mg PO MOFR 01/07/20 01/07/20 busPIRone HCL 22.5 mg PO BID 01/07/20 01/07/20 Previous Rx's Medication Instructions Recorded Folic Acid 1 mg PO DAILY 30 Days #30 tab 10/12/19 Cephalexin [Keflex] 500 mg PO Q8HR 7 Days #21 cap 01/17/20 Furosemide [Lasix] 40 mg PO BID@0900,1600 tab 01/17/20 HYDROcodone/APAP 5-325MG [[place] 1 tab PO Q6HR PRN 3 Days #12 tab 01/17/20 5-325] Allergies Allergy/AdvReac Type Severity Reaction Status Date / Time codeine AdvReac headache Verified 01/24/20 15:39 Review of Systems ROS Statement: Those systems with pertinent positive or pertinent negative responses have been documented in the HPI. ROS Other: All systems not noted in ROS Statement are negative. 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 Last Myocardial Infarction Date:: 2004 History of Any Multi-Drug Resistant Organisms: MRSA Date of last positivie culture/infection: 10/06/19 MDRO Source:: MRSA FOOT Past Surgical History: Bladder Surgery, Heart Catheterization, Orthopedic Surgery, Tubal Ligation Additional Past Surgical History / Comment(s): R foot toe debridements/right 2nd toe amputation, L toe wound debridement, bladder suspension, sweat glands removed under arms, EGD/colonoscopies/endoscopic capsule, surgery for deviated septum, peripheral procedure to remove DVT in R leg. Past Anesthesia/Blood Transfusion Reactions: No Reported Reaction Past Psychological History: Anxiety, Depression Smoking Status: Former smoker Past Alcohol Use History: None Reported Past Drug Use History: None Reported - Past Family History Father Family Medical History: Diabetes Mellitus Additional Family Medical History / Comment(s): father is . Mother Family Medical History: Cancer, Thyroid Disorder Additional Family Medical History / Comment(s): Mother had breast cancer twice and thyroid cancer. She is still living. General Exam - General Exam Comments Initial Comments: Small area of erythema and drainage to back of right ankle 5 x 5 cm Limitations: physical limitation General appearance: alert, in no apparent distress Head exam: Present: atraumatic, normocephalic, normal inspection Eye exam: Present: normal appearance, PERRL, EOMI. Absent: scleral icterus, conjunctival injection, periorbital swelling ENT exam: Present: normal exam, mucous membranes moist Neck exam: Present: normal inspection. Absent: tenderness, meningismus, lymphadenopathy Respiratory exam: Present: normal lung sounds bilaterally. Absent: respiratory distress, wheezes, rales, rhonchi, stridor Cardiovascular Exam: Present: regular rate, normal rhythm, normal heart sounds. Absent: systolic murmur, diastolic murmur, rubs, gallop, clicks GI/Abdominal exam: Present: soft, normal bowel sounds. Absent: distended, tenderness, guarding, rebound, rigid Extremities exam: Present: normal inspection, full ROM, normal capillary refill. Absent: tenderness, pedal edema, joint swelling, calf tenderness Back exam: Present: normal inspection Neurological exam: Present: alert, oriented X3, CN II-XII intact Psychiatric exam: Present: normal affect, normal mood Skin exam: Present: warm, dry, intact, normal color. Absent: rash Course Vital Signs 01/24/20 15:35 Temperature 97.6 F Pulse Rate 74 Respiratory 18 Rate Blood Pressure 134/48 O2 Sat by Pulse 97 Oximetry - Reevaluation(s) Reevaluation #1: 01/24/20 16:10 Medical records reviewed Reevaluation #2: 01/24/20 16:10 Line is drawn on patient's leg to watch spread of erythema proximally Medical Decision Making - Medical Decision Making 59 female DF for evaluation of right ankle erythema and drainage. Patient placed on antibiotics, will discharge home Disposition Clinical Impression: Cellulitis of right leg Disposition: HOME SELF-CARE Condition: Good Instructions (If sedation given, give patient instructions): Cellulitis (ED) Is patient prescribed a controlled substance at d/c from ED?: No Referrals: Richa Lopez MD [Primary Care Provider] - 1-2 days
== END 2020-01-24 16:29 | disposition home or self-care (01) ==
LOC: EC 15:29
DX: L03.115 Cellulitis of right lower limb (principal); I25.10 Atherosclerotic heart disease of native coronary artery without angina pectoris; I13.0 Hypertensive heart and chronic kidney disease with heart failure and stage 1 through stage 4 chronic kidney disease, or unspecified chronic kidney disease; N18.3 Chronic kidney disease, stage 3 (moderate); I50.9 Heart failure, unspecified; J44.9 Chronic obstructive pulmonary disease, unspecified; K21.9 Gastro-esophageal reflux disease without esophagitis; E78.5 Hyperlipidemia, unspecified; I25.2 Old myocardial infarction; M19.90 Unspecified osteoarthritis, unspecified site; E11.42 Type 2 diabetes mellitus with diabetic polyneuropathy; D63.1 Anemia in chronic kidney disease; F41.9 Anxiety disorder, unspecified; F32.9 Major depressive disorder, single episode, unspecified; Z79.899 Other long term (current) drug therapy; Z79.51 Long term (current) use of inhaled steroids; Z79.4 Long term (current) use of insulin; Z79.82 Long term (current) use of aspirin; Z88.5 Allergy status to narcotic agent; Z95.5 Presence of coronary angioplasty implant and graft; Z86.14 Personal history of Methicillin resistant Staphylococcus aureus infection; Z87.19 Personal history of other diseases of the digestive system; Z87.891 Personal history of nicotine dependence; Z86.73 Personal history of transient ischemic attack (TIA), and cerebral infarction without residual deficits
CPT/HCPCS: 99283

== ENCOUNTER 2020-07-20 15:30 | Inpatient (IN) | payer MEDICARE ==
--- NOTE | 2020-07-20 16:06 | ED ---
General Adult HPI - General Chief complaint: Skin/Abscess/Foreign Body Stated complaint: Left foot issues sent by PCP Time Seen by Provider: 07/20/20 15:49 Source: patient, RN notes reviewed Mode of arrival: ambulatory Limitations: no limitations - History of Present Illness Initial comments: 60-year-old female with a complicated past medical history presents to the emergency room for a chief complaint of possible left foot infection. Patient has erythema of the left forefoot that has been ongoing for about 7 months now. This started when she had her left great toe and distal metatarsal amputated secondary to chronic infected wound. Patient states that our surgeon Dr. Hdez amputated the toe while an orthopedic surgeon at [facility] amputated the metatarsal. Patient states she saw her porter head Dr. Oliver today who recommended she come to the emergency room as this redness has not been healing. Patient states she has been on continuous antibiotics for 2 months. She denies fevers or chills. She states sometimes the foot is more red than other times. States that right now it is not very red.Patient has no other complaints at this time including shortness of breath, chest pain, abdominal pain, nausea or vomiting, headache, or visual changes. - Related Data Home Medications Medication Instructions Recorded Confirmed Omeprazole 20 mg PO BID 08/13/17 01/07/20 Ergocalciferol (Vitamin D2) 1 cap PO Q30D 12/26/17 01/07/20 [Vitamin D2] Ferrous Sulfate [Feosol] 325 mg PO DAILY 12/26/17 01/07/20 Isosorbide Mononitrate [Isosorbide 30 mg PO DAILY 12/26/17 01/07/20 Mononitrate ER] Metoprolol Tartrate [Lopressor] 50 mg PO BID 12/26/17 01/07/20 Pregabalin [Lyrica] 300 mg PO BID 12/26/17 01/07/20 Spironolactone [Aldactone] 25 mg PO DAILY 12/26/17 01/07/20 Venlafaxine HCl [Effexor XR] 150 mg PO DAILY 12/26/17 01/07/20 allopurinoL [Zyloprim] 300 mg PO DAILY 12/26/17 01/07/20 Albuterol Sulfate [Proair Hfa] 2 puff INHALATION RT-QID PRN 10/06/19 01/07/20 Aspirin EC [Ecotrin Low Dose] 81 mg PO DAILY 10/06/19 01/07/20 Dulaglutide [Trulicity] 1.5 mg SQ FR 10/06/19 01/07/20 Pravastatin Sodium [Pravachol] 20 mg PO DAILY 10/06/19 01/07/20 Baclofen 10 mg PO TID PRN 01/07/20 01/07/20 Folic Acid 1 mg PO DAILY 01/07/20 01/07/20 Insulin NPH Human Isophane 20 units SQ Q12H 01/07/20 01/07/20 [NovoLIN N] Insulin Regular, Human [NovoLIN R] 55 unit SQ ACHS 01/07/20 01/07/20 Insulin Regular, Human [NovoLIN R] See Protocol SQ ACHS 01/07/20 01/07/20 busPIRone HCL 22.5 mg PO BID 01/07/20 01/07/20 metOLazone [Zaroxolyn] 5 mg PO MOFR 01/07/20 01/07/20 Previous Rx's Medication Instructions Recorded Folic Acid 1 mg PO DAILY 30 Days #30 tab 10/12/19 Cephalexin [Keflex] 500 mg PO Q8HR 7 Days #21 cap 01/17/20 Furosemide [Lasix] 40 mg PO BID@0900,1600 tab 01/17/20 HYDROcodone/APAP 5-325MG [[place] 1 tab PO Q6HR PRN 3 Days #12 tab 01/17/20 5-325] Sulfamethox-Tmp 800-160Mg [Bactrim 1 tab PO Q12HR #14 tab 01/24/20 DS 800-160 mg] Allergies Allergy/AdvReac Type Severity Reaction Status Date / Time codeine AdvReac headache Verified 07/20/20 15:48 Review of Systems ROS Statement: Those systems with pertinent positive or pertinent negative responses have been documented in the HPI. ROS Other: All systems not noted in ROS Statement are negative. 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 Last Myocardial Infarction Date:: 2004 History of Any Multi-Drug Resistant Organisms: MRSA Date of last positivie culture/infection: 10/06/19 MDRO Source:: MRSA FOOT Past Surgical History: Bladder Surgery, Heart Catheterization, Orthopedic Surgery, Tubal Ligation Additional Past Surgical History / Comment(s): R foot toe debridements/right 2nd toe amputation, L toe wound debridement, bladder suspension, sweat glands removed under arms, EGD/colonoscopies/endoscopic capsule, surgery for deviated septum, peripheral procedure to remove DVT in R leg. Past Anesthesia/Blood Transfusion Reactions: No Reported Reaction Past Psychological History: Anxiety, Depression Smoking Status: Former smoker Past Alcohol Use History: None Reported Past Drug Use History: None Reported - Past Family History Father Family Medical History: Diabetes Mellitus Additional Family Medical History / Comment(s): father is . Mother Family Medical History: Cancer, Thyroid Disorder Additional Family Medical History / Comment(s): Mother had breast cancer twice and thyroid cancer. She is still living. General Exam Limitations: no limitations General appearance: alert, in no apparent distress Head exam: Present: atraumatic, normocephalic, normal inspection Eye exam: Present: normal appearance, PERRL, EOMI. Absent: scleral icterus, conjunctival injection, periorbital swelling ENT exam: Present: normal exam, mucous membranes moist Neck exam: Present: normal inspection Respiratory exam: Present: normal lung sounds bilaterally. Absent: respiratory distress Cardiovascular Exam: Present: regular rate, normal rhythm GI/Abdominal exam: Present: soft, normal bowel sounds. Absent: distended, tenderness, guarding, rebound, rigid Extremities exam: Present: normal capillary refill (Capillary refill less than 2 seconds in the left lower extremity), other (Amputated left toe. There is erythema involving the forefoot of the left toe. No streaking redness. No purulent drainage. No increased warmth.) Course Vital Signs 07/20/20 15:46 Temperature 98.5 F Pulse Rate 77 Respiratory 18 Rate Blood Pressure 124/61 O2 Sat by Pulse 99 Oximetry Medical Decision Making - Medical Decision Making Vitals are stable. HPI and physical exam as documented. Patient is a erythema to the left forefoot that she states is worsening after her indication January secondary to a nonhealing wound. Dr. Oliver strongly recommended patient be admitted. CBC does show leukocytosis with a left shift. Lactic acid of 2.8. Blood pressure is stable. CRP is 41.8. X-ray of the left foot does show interval osteotomy of the mid aspect of the first metatarsal shaft. The margin is irregular and there is fluffy periostitis. Osteomyelitis is not excluded. Patient was started on broad-spectrum antibiotics and will be admitted. Dr. Sa gonzalez our infectious disease doctor is similar with this patient according to patient. - Lab Data Result diagrams: 07/20/20 16:17 07/20/20 16:17 Lab Results 07/20/20 07/20/20 07/20/20 Range/Units 16:17 16:17 16:17 WBC 11.3 H (3.8-10.6) k/uL RBC 4.14 (3.80-5.40) m/uL Hgb 12.3 (11.4-16.0) gm/dL Hct 37.5 (34.0-46.0) % MCV 90.5 (80.0-100.0) fL MCH 29.7 (25.0-35.0) pg MCHC 32.8 (31.0-37.0) g/dL RDW 15.4 (11.5-15.5) % Plt Count 246 (150-450) k/uL MPV 7.5 Neutrophils % 80 % Lymphocytes % 12 % Monocytes % 4 % Eosinophils % 2 % Basophils % 1 % Neutrophils # 9.0 H (1.3-7.7) k/uL Lymphocytes # 1.4 (1.0-4.8) k/uL Monocytes # 0.4 (0-1.0) k/uL Eosinophils # 0.2 (0-0.7) k/uL Basophils # 0.1 (0-0.2) k/uL Hypochromasia Slight Poikilocytosis Slight Sodium 141 (137-145) mmol/L Potassium 4.5 (3.5-5.1) mmol/L Chloride 97 L (98-107) mmol/L Carbon Dioxide 37 H (22-30) mmol/L Anion Gap 7 mmol/L BUN 41 H (7-17) mg/dL Creatinine 1.32 H (0.52-1.04) mg/dL Est GFR (CKD-EPI)AfAm 50 (>60 ml/min/1.73 sqM) Est GFR (CKD-EPI)NonAf 43 (>60 ml/min/1.73 sqM) Glucose 264 H (74-99) mg/dL Plasma Lactic Acid [place] 2.8 H* (0.7-2.0) mmol/L Calcium 9.2 (8.4-10.2) mg/dL Total Bilirubin 0.4 (0.2-1.3) mg/dL AST 28 (14-36) U/L ALT 24 (4-34) U/L Alkaline Phosphatase 114 (38-126) U/L C-Reactive Protein 41.8 H (<10.0) mg/L Total Protein 8.1 (6.3-8.2) g/dL Albumin 4.0 (3.5-5.0) g/dL Disposition Clinical Impression: Cellulitis, Osteomyelitis, Lactic acidosis, Leukocytosis Disposition: ADMITTED IP TO THIS HOSP Is patient prescribed a controlled substance at d/c from ED?: No Referrals: Richa Lopez MD [Primary Care Provider] - 1-2 days Time of Disposition: 17:30
[2020-07-20 16:25] LABS: Basophils # (A) 0.1 k/uL (0-0.2); Basophils % (A) 1 %; Eosinophils # (A) 0.2 k/uL (0-0.7); Eosinophils % (A) 2 %; HCT 37.5 % (34.0-46.0); HGB 12.3 gm/dL (11.4-16.0); Hypochromasia Slight; Lymphocytes # (A) 1.4 k/uL (1.0-4.8); Lymphocytes % (A) 12 %; MCH 29.7 pg (25.0-35.0); MCHC 32.8 g/dL (31.0-37.0); MCV 90.5 fL (80.0-100.0); Mean Platelet Volume 7.5; Monocytes # (A) 0.4 k/uL (0-1.0); Monocytes % (A) 4 %; Neutrophils % (A) 80 %; Platelet Count 246 k/uL (150-450); Poikilocytosis Slight; RBC 4.14 m/uL (3.80-5.40); RDW 15.4 % (11.5-15.5); WBC 11.3 k/uL (3.8-10.6)
[2020-07-20 16:37] LABS: C Reactive Protein 41.8 mg/L (<10.0); Calcium 9.2 mg/dL (8.4-10.2); Potassium 4.5 mmol/L (3.5-5.1); Total Bilirubin 0.4 mg/dL (0.2-1.3); Total Protein 8.1 g/dL (6.3-8.2)
[2020-07-20] MEDS ORDERED: cefTRIAXone IN SWFI 1,000 MG/10 ML SYRINGE IVP STA (16:50)
[2020-07-20] MEDS ORDERED: SODIUM CHLORIDE 0.9% 1,000 ML IV STA ×2 (16:50→17:52)
--- NOTE | 2020-07-20 17:06 | XR ---
EXAMINATION TYPE: XR foot complete LT DATE OF EXAM: 07/20/2020 COMPARISON: 01/07/2020 HISTORY: 60-year-old female pain, erythema near amputation site. TECHNIQUE: 3 views FINDINGS: The osteotomy margin at the level of the first metatarsal midshaft is irregular and there is slightly periostitis in this region. Possible punctate 1 mm hyperdense retained foreign body within the dorsa l soft tissues at the level of the osteotomy site. Small plantar heel spur. Generalized soft tissue s welling. IMPRESSION: 1. Interval osteotomy at the mid aspect of the first metatarsal shaft. The osteotomy margin is irregu lar and there is fluffy periostitis. Osteomyelitis not excluded. 2. Tiny 1 mm hyperdense retained foreign body within the dorsal soft tissues at the level of the oste otomy site.
[2020-07-20] MEDS ORDERED: VANCOMYCIN IV PER PHARMACY 1 EACH MISC MISCELLANE PRN ×3 (17:26→18:11)
[2020-07-20] MEDS ORDERED: PIPERACILLIN-TAZOBACTAM 3.375 GM in SODIUM CHLORIDE 0.9% 100 ML IVPB STA ×2 (17:26→17:31)
[2020-07-20] MEDS ORDERED: SODIUM CHLORIDE 0.9% 1,000 ML IV SCH (17:30)
[2020-07-20] MEDS ORDERED: NALOXONE 0.4 MG/ML 1 ML VIAL IV PRN (17:30)
[2020-07-20] MEDS ORDERED: SODIUM CHLORIDE 0.9% 500 ML 500 ML IV STA (17:52)
[2020-07-20] MEDS ORDERED: VANCOMYCIN 2,250 MG in SODIUM CHLORIDE 0.9% 500 ML 500 ML IVPB ONE (18:00)
[2020-07-20] MEDS ORDERED: IPRATROPIUM 0.5 MG/2.5 ML NEBU INHALATION PRN (18:06)
[2020-07-20] MEDS ORDERED: BACLOFEN 10 MG TAB PO PRN (18:06)
[2020-07-20] MEDS ORDERED: HYDROcodone/APAP 7.5-325MG 1 EACH TAB PO PRN (18:06)
[2020-07-20] MEDS ORDERED: IPRATROPIUM-ALBUTEROL 3 ML NEB INHALATION PRN (18:06)
[2020-07-20] MEDS ORDERED: ONDANSETRON 4 MG TAB PO PRN (18:06)
[2020-07-20 18:35] LABS: Glucose,Whole Blood 346 mg/dL (75-99)
--- NOTE | 2020-07-20 19:32 | HP ---
HISTORY AND PHYSICAL DATE OF SERVICE: 07/20/2020 CHIEF COMPLAINT: Left foot infection and possible foreign body. HISTORY OF PRESENT ILLNESS: This 60-year-old woman with a past medical history of multiple medical problems including CAD, CHF, COPD, CVA, TIA, diabetes type 2, DVT, GERD, GI bleed, hypertension, history of myocardial infarction, history of pneumonia, history of sleep apnea, history of vascular disorder, history of peripheral neuropathy, bilateral secondary to diabetes mellitus, history of MRSA, had recently had osteomyelitis of the big toe on the left side. The patient had surgery by Dr. Linda and subsequently had surgery for osteomyelitis in [facility]. The patient is currently taking antibiotics. Patient was seen by Dr. Linda and subsequently sent to [facility] for further evaluation. The patient is followed by Dr. Lopez in the outpatient setting. The problem with the left to foot is ongoing for the last seven months and there is some redness noted in the left foot also. The patient has had two weeks of antibiotics. There is no history of fever, rigors. No history of headache, loss of consciousness, seizures. PAST MEDICAL: CAD, COPD, CVA, TIA, diabetes, DVT, GERD, GI bleed, hypertension, hyperlipidemia. MEDICATIONS: Prior to admission home medications are: 1. Zofran. 2. Zaroxolyn. 3. Buspirone. 4. Zyloprim. 5. Carafate. 6. Aldactone. 7. Ozempic. 8. Lyrica. 9. Prevacid. 10.K-Dur. 11.Omeprazole. 12.Lopressor. 13.Magnesium oxide. 14.Isosorbide dinitrate. 15.Atrovent. 16.Tresiba. 17.NovoLog. 18.[place]. 19.Folic acid. 20.Iron sulfate. 21.Vitamin D2. 22.Pulmicort. 23.Ecotrin. 24.ProAir. ALLERGIES: CODEINE. FAMILY HISTORY: History of diabetes in the family. SOCIAL HISTORY: Previous history of smoking. No history of current smoking or alcohol intake. REVIEW OF SYSTEMS: ENT No history of diminished hearing or vision. CARDIOVASCULAR No angina or palpitations. RESPIRATORY No cough, no hemoptysis. GI No nausea, vomiting, or diarrhea. No dysuria or hematuria. NERVOUS No numbness or weakness. ALLERGY/IMMUNOLOGY No asthma or hayfever. MUSCULOSKELETAL As mentioned earlier. HEMATOLOGY/ONCOLOGY Negative. ENDOCRINE As mentioned earlier. CONSTITUTIONAL As mentioned earlier. DERMATOLOGY Negative. RHEUMATOLOGY Negative, PSYCHIATRY As mentioned earlier. NERVOUS SYSTEM As mentioned earlier. PHYSICAL EXAM: Patient is alert, oriented. Pulse is 77, blood pressure 124/61, respiration 18, temperature 98.4, pulse ox 98% on 2 L HEENT: Conjunctivae normal. Oral mucosa moist. NECK: No jugular venous distention. No lymph node enlargement. CARDIOVASCULAR: S1, S2, muffled. No S3, no S4, RESPIRATORY: Diminished breath sounds at the bases. Bilateral scattered rhonchi and crackles. ABDOMEN: Soft, obese, nontender. No mass palpable. LEGS: Significant peripheral neuropathy present and left big toe is amputated. Erythematous area with some fluctuation in soft tissue also present in the left foot. NERVOUS SYSTEM: Higher functions mentioned earlier. No focal motor symptoms but the sensory symptoms present. SKIN: As mentioned. JOINTS: No active deforming arthropathy. LABS: WBC 7.2, hemoglobin 12.3, sodium 140, potassium 4.5, creatinine 1.6. Lactic acid 2.8. ASSESSMENT: 1. Left foot diabetic foot with severe infection, cellulitis, possible abscess, with sepsis present on admission. Rule out abscess. 2. Increased WBC. 3. Increased creatinine with chronic kidney disease stage 3. 4. Diabetes mellitus type 2, uncontrolled with hyperglycemia. 5. Elevated lactic acid. 6. Elevated CRP. 7. History of coronary artery disease. 8. History of congestive heart failure. 9. History of chronic obstructive pulmonary disease. 10.History of cerebrovascular accident, transient ischemic attack. 11.History of deep vein thrombosis. 12.Gastroesophageal reflux disease. 13.History of gastrointestinal bleed. 14.Hypertension. 15.Hyperlipidemia. 16.History of myocardial infarction. 17.History of degenerative joint disease. 18.History of sleep apnea. 19.History of bilateral peripheral neuropathy. 20.History of left great toe diabetic ulcer and osteomyelitis status post amputation. 21.History of chronic anemia. 22.History of MRSA. 23.History of bladder surgery. 24.History of cardiac catheterization. 25.Anxiety, depression. 26.Morbid obesity, BMI of 44.6. 27.History of nicotine dependence. 28.FULL CODE. RECOMMENDATIONS AND DISCUSSION: In this 60-year-old woman who presented with multiple complex medical issues, we will monitor the patient closely, continue the current management, broad-spectrum IV antibiotics. Also, recommend a CT scan of the foot and as well as bone scan. Otherwise, infectious disease and vascular consultation will be obtained. Home medications will be continued. Prognosis guarded because of multiple complex medical issues. Further recommendations to follow. RAIN / LUZMAN: [id number] /
--- NOTE | 2020-07-20 19:34 | CT ---
EXAMINATION TYPE: CT foot LT wo con with 3-D reconstruction renderings DATE OF EXAM: 07/20/2020 COMPARISON: Radiographs 07/20/2020 HISTORY: Pain, swelling, erythema, question abscess TECHNIQUE: Departmental protocol with 3-D reconstruction renderings. Automated exposure control for d ose reduction was used. CT DLP: 217.5 mGycm FINDINGS: There is marked architectural distortion and just beyond the metatarsal shaft osteotomy site, with th e irregular cortical margins of the distal metatarsal shaft consistent with osteomyelitis. Punctate 1 mm metallic foreign body is confirmed, in the dorsal soft tissues at the level of the oste otomy site. Surrounding soft tissue swelling is noted, measuring approximately 3.5 cm diameter, but no soft tissu e emphysema is seen. There is no fluid density CT attention to confirm focal fluid collection within this 3.5 cm diameter rounded zone of soft tissue swelling about the osteotomy site, but ultrasound or MRI characterization could provide optimal soft tissue resolution between fluid and focal soft tissue edema. The base of the first metatarsal, and the first MTP joint, are unremarkable. The remainder of the ske letal structures are unremarkable. IMPRESSION: 1. FINDINGS CONSISTENT WITH OSTEOMYELITIS. 2. 3.5 CM DIAMETER ZONE OF SOFT TISSUE SWELLING, DISCUSSED. 3. PUNCTATE 1 MM METALLIC RADIOPAQUE FOREIGN BODY DORSAL SOFT TISSUES OVER THE OSTEOTOMY SITE.
[2020-07-20] MEDS: FLUTICASONE 110 MCG INHALER INHALATION SCH (20:41)
[2020-07-20 21:46] LABS: Glucose,Whole Blood 141 mg/dL (75-99)
[2020-07-20] MEDS: busPIRone HCl 5 MG TAB PO SCH (22:02)
[2020-07-20] MEDS: PREGABALIN 100 MG CAP PO SCH (22:02)
[2020-07-20] MEDS: METOPROLOL TARTRATE 50 MG TAB PO SCH (22:02)
[2020-07-20] MEDS: POTASSIUM CHLORIDE ER 10 MEQ TAB.ER.PRT PO SCH (22:02)
[2020-07-20] MEDS: SUCRALFATE 1 GM TAB PO SCH (22:02)
[2020-07-20] MEDS: HEPARIN SODIUM,PORCINE 5,000 UNIT/ML 1 ML VIAL SQ SCH (22:03)
[2020-07-20] MEDS: INSULIN ASPART (NovoLOG) 100 UNIT/ML VIAL SQ SCH (22:03)
[2020-07-21] MEDS: PIPERACILLIN-TAZOBACTAM 3.375 GM in SODIUM CHLORIDE 0.9% 100 ML IVPB SCH ×3 (02:07→17:41)
[2020-07-21 06:28] LABS: Basophils # (A) 0.1 k/uL (0-0.2); Basophils % (A) 1 %; Eosinophils # (A) 0.3 k/uL (0-0.7); Eosinophils % (A) 3 %; HCT 35.5 % (34.0-46.0); HGB 11.4 gm/dL (11.4-16.0); Hypochromasia Slight; Lymphocytes # (A) 1.6 k/uL (1.0-4.8); Lymphocytes % (A) 14 %; MCH 28.9 pg (25.0-35.0); MCHC 32.2 g/dL (31.0-37.0); MCV 89.9 fL (80.0-100.0); Mean Platelet Volume 7.3; Monocytes # (A) 0.5 k/uL (0-1.0); Monocytes % (A) 4 %; Neutrophils # (A) 8.5 k/uL (1.3-7.7); Neutrophils % (A) 77 %; Platelet Count 227 k/uL (150-450); RBC 3.95 m/uL (3.80-5.40); RDW 15.4 % (11.5-15.5); WBC 11.1 k/uL (3.8-10.6)
[2020-07-21 07:37] LABS: Glucose,Whole Blood 152 mg/dL (75-99)
[2020-07-21] MEDS: FLUTICASONE 110 MCG INHALER INHALATION SCH ×2 (08:34→19:38)
[2020-07-21] MEDS ORDERED: INSULIN DETEMIR (LEVEMIR) 100 UNIT/ML SYR SQ SCH (09:00)
[2020-07-21 09:55] LABS: African American GFR (CKD) 46.6 (60.0-200.0); Anion Gap 11.8 mmol/L (4.00-12.00); Calcium 9.4 mg/dL (8.7-10.3); Carbon Dioxide 31.2 mmol/L (21.6-31.8); Non-African American GFR(CKD) 40.2 (60.0-200.0); Potassium 4.3 mmol/L (3.5-5.5)
[2020-07-21] MEDS: PANTOPRAZOLE 40 MG TABLET PO SCH (09:56)
[2020-07-21] MEDS: ASPIRIN 81 MG PO SCH (09:57)
[2020-07-21] MEDS: allopurinoL 300 MG TAB PO SCH (09:57)
[2020-07-21] MEDS: SUCRALFATE 1 GM TAB PO SCH ×4 (09:57→20:44)
[2020-07-21] MEDS: FOLIC ACID 1 MG TAB PO SCH (10:00)
[2020-07-21] MEDS: FERROUS SULFATE 325 MG TAB PO SCH (10:00)
[2020-07-21] MEDS: ISOSORBIDE MONONITRATE ER 30 MG TAB.ER.24H PO SCH (10:00)
[2020-07-21] MEDS: HEPARIN SODIUM,PORCINE 5,000 UNIT/ML 1 ML VIAL SQ SCH ×2 (10:00→20:43)
[2020-07-21] MEDS: LORATADINE 10 MG TAB PO SCH (10:01)
[2020-07-21] MEDS: MAGNESIUM OXIDE 400 MG TAB PO SCH (10:01)
[2020-07-21] MEDS: POTASSIUM CHLORIDE ER 10 MEQ TAB.ER.PRT PO SCH ×2 (10:02→20:44)
[2020-07-21] MEDS: METOPROLOL TARTRATE 50 MG TAB PO SCH ×2 (10:02→20:44)
[2020-07-21] MEDS: metOLazone 5 MG TAB PO SCH (10:02)
[2020-07-21] MEDS: SPIRONOLACTONE 25 MG TAB PO SCH (10:03)
[2020-07-21] MEDS: PRAVASTATIN SODIUM 20 MG TAB PO SCH (10:03)
[2020-07-21] MEDS: PREGABALIN 100 MG CAP PO SCH ×3 (10:26→20:48)
[2020-07-21] MEDS: busPIRone HCl 5 MG TAB PO SCH ×3 (10:26→20:48)
[2020-07-21] MEDS: VENLAFAXINE HCL ER 150 MG CAP PO SCH (10:33)
[2020-07-21 11:36] LABS: Glucose,Whole Blood 167 mg/dL (75-99)
[2020-07-21] MEDS: INSULIN ASPART (NovoLOG) 100 UNIT/ML VIAL SQ SCH ×4 (12:49→20:43)
--- NOTE | 2020-07-21 13:15 | CONS ---
CONSULTATION This is a 60-year-old female, well known to me from the past. The patient had a left big toe done for osteo and wound infection in month of January. The patient was not followed up in my office. The patient had another surgery done at [facility] for osteomyelitis. At this time, patient has been admitted with some cellulitis and redness of the stump site with some serous drainage. The patient had a CT scan of the foot. There was a concern about 1 mm foreign body. Also patient is scheduled to have a bone scan, rule out osteomyelitis. MEDICAL HISTORY: History of diabetes, COPD, CHF and coronary artery disease. The patient is on antibiotic per Infectious Disease. On examination, patient was seen in her room, lying comfortably in bed. NECK: Supple. Trachea central. CHEST: Clear. ABDOMEN: Soft. Femorals are 1+. The patient has a left foot stump site is healing and there is slight serous discharge noted and some mild cellulitis noted. There is no localized sign of any abscess. PLAN: Patient is on IV antibiotic and going for bone scan. We will follow with you. MMODL / IJN: [id number] /
--- NOTE | 2020-07-21 15:46 | NM ---
EXAMINATION TYPE: NM bone 3 phase DATE OF EXAM: 07/21/2020 COMPARISON: 01/08/2020 HISTORY: Swelling left foot Triple phase bone scintigraphy was performed following the injection of 25.6 mCi Tc 99m MDP. Immedia te images and 6 hours post injection images acquired. FINDINGS: There is persistent increased flow to the left foot. On blood pool images there is soft tissue uptake noted along the medial margin of the distal left farhat t. Correlate for previous surgery involving the first and second digits. Delayed imaging demonstrates intense abnormal osseous uptake involving the medial margin of the left foot highly suggestive of os teomyelitis IMPRESSION: 1. Findings are compatible with osteomyelitis involving the remaining portion of the medial margin of the left foot including the remaining portion of the first metatarsal.
--- NOTE | 2020-07-21 16:24 | PN ---
PROGRESS NOTE DATE OF SERVICE: 07/21/2020 This 60-year-old woman who was admitted with left foot infection and possible osteomyelitis is being closely monitored. Patient started on broad spectrum IV antibiotics. Vascular Surgery is following the patient closely. A foreign body is also suspected. Dr. Linda has seen the patient and recommended IV antibiotics and bone scan. PAST MEDICAL HISTORY: Reviewed. REVIEW OF SYSTEMS: CARDIOVASCULAR SYSTEM: No angina. RESPIRATORY SYSTEM: As mentioned earlier. GI: As mentioned earlier. : No dysuria. NERVOUS SYSTEM: No weakness or numbness. CURRENT MEDICATIONS: Current medications are reviewed and include: [place], Zyloprim, aspirin, Lioresal, BuSpar, vitamin D2, heparin, Levemir, Imdur, magnesium oxide, Zocor. Doses are reviewed. PHYSICAL EXAMINATION: Patient is alert and oriented x3. Pulse 73, blood pressure 152/64, respiration 18, temperature 98 degrees, pulse ox 98% on 3 L. HEENT: Conjunctivae normal. NECK: No jugular venous distention. CARDIOVASCULAR: S1, S2 muffled. RESPIRATORY: Breath sounds diminished at the bases. Bilateral scattered rhonchi and crackles. ABDOMEN: Soft, nontender. LEGS: Left foot pain and swelling present. NERVOUS SYSTEM: No focal deficits. LABS: WBC 11.1, otherwise glucose 119. Lactic acid 2.7. ASSESSMENT: 1. Acute left foot diabetic foot with cellulitis and infection with possible abscess, possible osteomyelitis with sepsis, present on admission. 2. Increased WBC. 3. Possible foreign body in the left foot. 4. Increased creatinine with chronic kidney disease stage 3. 5. Diabetes mellitus type 2 uncontrolled with hyperglycemia. 6. Elevated lactic acid. 7. Elevated CRP. 8. History of coronary artery disease. 9. History of congestive heart failure, ejection fraction unknown. 10.History of chronic obstructive pulmonary disease. 11.History of cerebrovascular accident, transient ischemic attack. 12.History of deep vein thrombosis. 13.Gastroesophageal reflux disease. 14.History of gastrointestinal bleed. 15.Hypertension. 16.Hyperlipidemia. 17.History of myocardial infarction. 18.History of degenerative joint disease. 19.History of sleep apnea. 20.History of bilateral peripheral neuropathy. 21.History of left great toe diabetic foot ulcer, osteomyelitis, status post amputation. 22.History of chronic anemia. 23.History of methicillin-resistant Staphylococcus aureus. 24.History of bladder surgery. 25.History of cardiac catheterization. 26.History of anxiety, depression. 27.History of obesity with body mass index 44.6. 28.History of nicotine dependence. 29.FULL CODE. RECOMMENDATIONS AND DISCUSSION: I recommend to continue current medications, continue symptomatic treatment. Continue with empiric antibiotics. Await bone scan. Closely follow with Infectious Disease and Vascular. Prognosis guarded because of multiple complex medical issues. Monitor closely. Further recommendations to follow. Monitor blood sugars closely. MMODL / IJN: [id number] /
[2020-07-21 16:51] LABS: Glucose,Whole Blood 156 mg/dL (75-99)
[2020-07-21] MEDS: VANCOMYCIN 2,250 MG in SODIUM CHLORIDE 0.9% 500 ML 500 ML IVPB SCH (17:48)
[2020-07-21 20:02] LABS: Glucose,Whole Blood 230 mg/dL (75-99)
--- NOTE | 2020-07-22 00:06 | CONS ---
CONSULTATION DATE OF SERVICE: 07/21/2020 REASON FOR STAY: Diabetic foot infection, question of osteomyelitis. HISTORY OF PRESENT ILLNESS: The patient is a 60 -year-old female, past medical history significant for left big toe diabetic foot infection with osteomyelitis in this patient status post left big toe amputation. The patient now presenting to the [facility] ER yesterday for evaluation of possible left foot infection. The patient has been complaining of her left foot having more swelling and some redness in this patient who apparently has been evaluated by Dr. 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 The patient has been on antibiotic in the outpatient setting. For these symptoms, the patient has been sent to the ER. The patient denies significant pain because of underlying diabetic neuropathy. The patient did have minimal drainage. Denies any foul smelling drainage. Denies having any fever or any chills. With these symptoms, the patient was evaluated by the ER physician. On arrival to the ER, the patient has been afebrile. The patient did have mild elevated white count of 11.3, creatinine is 1.4. CRP 41.8. The patient did have x-rays of left foot with toe osteotomy at the mid aspect of the 1st metatarsal shaft. concern for osteomyelitis and there was a concern for foreign body. The patient also had a CT of the foot which shows findings consistent of osteomyelitis with 3.5 mm diameter zone of soft tissue swelling . The patient did have cultures obtained. She was started on vancomycin and Zosyn. Infectious disease was consulted for further management of antibiotic therapy. REVIEW OF SYSTEMS: Positive points have been mentioned in HPI. Rest of systems are negative. PAST MEDICAL HISTORY: Coronary artery disease, heart failure, COPD, CVA, TIA, diabetes mellitus, left big toe osteomyelitis. PAST SURGICAL HISTORY: Left big toe amputation. Heart catheterization, tubal ligation and bladder surgery. SOCIAL HISTORY: Remote history of smoking. No drinking or drug use. FAMILY HISTORY: Father history of diabetes. Mother history of breast cancer and thyroid disorder. ALLERGIES: TO CODEINE. MEDICATIONS: The patient is currently on [place], DuoNeb, Zyloprim, aspirin, baclofen, BuSpar, vitamin D2, iron sulfate, folic acid, heparin, NovoLog, Levemir, Imdur, Claritin, Mag oxide, Zaroxolyn, Lopressor, Narcan, Zofran, Protonix, Pravachol, Lyrica, Aldactone, Carafate, vancomycin and Zosyn. PHYSICAL EXAMINATION: Blood pressure 152/61 with a pulse of 83, temperature 98.1. She is 98% on 3 L nasal cannula. General description is a middle-aged female lying in bed in no distress. No tachypnea or accessory muscle of respiration use. HEENT: Examination shows no pallor or scleral icterus. Oral mucous membranes dry. No pharyngeal erythema or thrush. Neck: Trachea central. No thyromegaly. Lungs unlabored breathing. Clear to auscultation anteriorly. No wheeze or crackles. Heart S1, S2. Regular rate and rhythm. ABDOMEN: Soft, no tenderness. No guarding. No rigidity. EXTREMITIES: No edema of the feet. Skin examination of the left foot: Leg big toe with minimal swelling. No significant redness or any foul-smelling drainage was noticed. Neurological: Patient is awake, alert, oriented times three. Mood and affect normal. LABS: BUN of 4, creatinine is 1.4. CRP was 41. White count of 11.1. X-ray and CT report mentioned above. DIAGNOSTIC IMPRESSION AND PLAN: Patient with non healing wound and some drainage of the left big toe amputation site. X-rays have been suggestive of a foreign body that may have led to persistent or nonhealing of this infection with previous culture has been positive both for strep and MRSA and no gram-negative. PLAN: 1. We will discuss with Vascular Surgery for exploration of this area, removal of the foreign body and deep cultures. 2. Vancomycin to continue, pharmacy to dose, target of 15. However discontinue Zosyn to decrease risk of nephrotoxicity. 3. We will follow on clinical condition and culture to further adjust medication if needed. Thank you for this consultation. We will follow this patient along with you. MMODL / IJN: [id number] /
[2020-07-22 06:15] LABS: Basophils # (A) 0.1 k/uL (0-0.2); Basophils % (A) 1 %; Eosinophils # (A) 0.3 k/uL (0-0.7); Eosinophils % (A) 3 %; HCT 33.4 % (34.0-46.0); HGB 10.8 gm/dL (11.4-16.0); Hypochromasia Slight; Lymphocytes # (A) 1.4 k/uL (1.0-4.8); Lymphocytes % (A) 17 %; MCH 29.1 pg (25.0-35.0); MCHC 32.3 g/dL (31.0-37.0); MCV 90.2 fL (80.0-100.0); Mean Platelet Volume 7.6; Monocytes # (A) 0.4 k/uL (0-1.0); Monocytes % (A) 5 %; Neutrophils # (A) 6.1 k/uL (1.3-7.7); Neutrophils % (A) 72 %; Platelet Count 190 k/uL (150-450); RDW 15.3 % (11.5-15.5); WBC 8.4 k/uL (3.8-10.6)
[2020-07-22 07:12] LABS: Glucose,Whole Blood 188 mg/dL (75-99)
[2020-07-22] MEDS: FLUTICASONE 110 MCG INHALER INHALATION SCH ×2 (07:51→20:10)
[2020-07-22] MEDS: INSULIN ASPART (NovoLOG) 100 UNIT/ML VIAL SQ SCH ×4 (09:22→20:34)
[2020-07-22] MEDS: SUCRALFATE 1 GM TAB PO SCH ×4 (09:23→20:34)
[2020-07-22] MEDS: ASPIRIN 81 MG PO SCH (09:23)
[2020-07-22] MEDS: PANTOPRAZOLE 40 MG TABLET PO SCH (09:23)
[2020-07-22] MEDS: allopurinoL 300 MG TAB PO SCH (09:23)
[2020-07-22] MEDS: busPIRone HCl 5 MG TAB PO SCH ×3 (09:24→20:33)
[2020-07-22] MEDS: FOLIC ACID 1 MG TAB PO SCH (09:24)
[2020-07-22] MEDS: HEPARIN SODIUM,PORCINE 5,000 UNIT/ML 1 ML VIAL SQ SCH ×2 (09:24→20:33)
[2020-07-22] MEDS: FERROUS SULFATE 325 MG TAB PO SCH (09:24)
[2020-07-22] MEDS: MAGNESIUM OXIDE 400 MG TAB PO SCH (09:25)
[2020-07-22] MEDS: PREGABALIN 100 MG CAP PO SCH ×3 (09:25→20:33)
[2020-07-22] MEDS: METOPROLOL TARTRATE 50 MG TAB PO SCH ×2 (09:26→20:34)
[2020-07-22] MEDS: LORATADINE 10 MG TAB PO SCH (09:26)
[2020-07-22] MEDS: POTASSIUM CHLORIDE ER 10 MEQ TAB.ER.PRT PO SCH ×2 (09:26→20:34)
[2020-07-22] MEDS: PRAVASTATIN SODIUM 20 MG TAB PO SCH (09:26)
[2020-07-22] MEDS: VENLAFAXINE HCL ER 150 MG CAP PO SCH (09:26)
[2020-07-22] MEDS: SPIRONOLACTONE 25 MG TAB PO SCH (09:26)
[2020-07-22] MEDS: ISOSORBIDE MONONITRATE ER 30 MG TAB.ER.24H PO SCH (09:45)
[2020-07-22] MEDS: INSULIN DETEMIR (LEVEMIR) 100 UNIT/ML SYR SQ SCH (09:46)
[2020-07-22 09:58] LABS: African American GFR (CKD) 46.6 (60.0-200.0); Anion Gap 8.6 mmol/L (4.00-12.00); BUN/Creat Ratio 25.71 Ratio (12.00-20.00); Calcium 9.1 mg/dL (8.7-10.3); Carbon Dioxide 30.4 mmol/L (21.6-31.8); Non-African American GFR(CKD) 40.2 (60.0-200.0); Potassium 4.2 mmol/L (3.5-5.5)
[2020-07-22 11:08] LABS: Glucose,Whole Blood 310 mg/dL (75-99)
[2020-07-22 17:34] LABS: Glucose,Whole Blood 227 mg/dL (75-99)
--- NOTE | 2020-07-22 17:49 | PN ---
PROGRESS NOTE DATE OF SERVICE: 07/22/2020 REASON FOR FOLLOWUP: Left diabetic foot infection with underlying osteomyelitis. INTERVAL HISTORY: The patient is currently afebrile. The patient is feeling better, breathing comfortably. Denies having any chest pain or shortness of breath or cough. No abdominal pain or pain to the left foot. PHYSICAL EXAMINATION: Blood pressure 136/62 with a pulse of 64, temperature 98.2. She is 98% on 3 L nasal cannula. General description is a middle-aged female up in the bed in no distress. RESPIRATORY SYSTEM: Unlabored breathing. Clear to auscultation anteriorly. HEART: S1, S2. Regular rate and rhythm. ABDOMEN: Soft. No tenderness. Left foot is currently dressed. No obvious drainage on the dressing. LABS: Hemoglobin is 10.3, white count 8.4, BUN of 36, creatinine 1.4. DIAGNOSTIC IMPRESSION AND PLAN: Patient admitted to hospital with left big toe amputation site nonhealing wound with concern for possible osteomyelitis or foreign body . Will discuss with Vascular whether the patient would benefit from removal of the foreign body and debridement and deep cultures. Currently covered with vancomycin. Monitor clinical course closely. MMODL / IJN: [id number] /
[2020-07-22] MEDS: VANCOMYCIN 2,250 MG in SODIUM CHLORIDE 0.9% 500 ML 500 ML IVPB SCH (20:24)
[2020-07-22 20:31] LABS: Glucose,Whole Blood 192 mg/dL (75-99)
--- NOTE | 2020-07-22 23:16 | P.PN ---
Subjective Progress Note Date: 07/22/20 Principal diagnosis: Acute left diabetic foot cellulitis with possible abscess and possible osteomyelitis. Ms. Roberto is a 60-year-old female admitted to the hospital for left foot infection with possible osteomyelitis. Patient is currently on antibiotics in the form of vancomycin being followed by infectious disease and vascular surgery closely. Today she is sitting up in a chair by the bedside appears to be in no acute distress. Patient states that she has diabetic neuropathy and cannot feel her lower extremities, which could be the reason for current infection. Patient denies having any chest pain or palpitations. No cough or difficulty in breathing. Normal pain nausea vomiting or diarrhea. No dysuria or hematuria. She denies having any fevers chills or rigors. On reviewing the vitals temperature 98.2, heart rate 64, respiratory rate 14, blood pressure 136/62 saturating at 98% on 3 L of nasal cannula. On reviewing the labs white count of 8.4, hemoglobin 10.8, platelets 190. Sodium 140, potassium 4.2, chloride 101, BUN 36, creatinine 1.4. Active Medications Hydrocodone Bitart/Acetaminophen (Hydrocodone/Apap 7.5-325mg 1 Each Tab) 1 each PO Q6H PRN PRN Reason: Pain Albuterol/Ipratropium (Ipratropium-Albuterol 3 Ml Neb) 2 ml INHALATION RT-QID PRN PRN Reason: Shortness Of Breath Allopurinol (Allopurinol 300 Mg Tab) 300 mg PO DAILY [facility] Last Admin: 07/22/20 09:23 Dose: 300 mg Documented by: Aspirin (Aspirin 81 Mg) 81 mg PO DAILY [facility] Last Admin: 07/22/20 09:23 Dose: 81 mg Documented by: Baclofen (Baclofen 10 Mg Tab) 10 mg PO TID PRN PRN Reason: Muscle Pain Buspirone HCl (Buspirone Hcl 5 Mg Tab) 15 mg PO TID [facility] Last Admin: 07/22/20 09:24 Dose: 15 mg Documented by: Ergocalciferol (Ergocalciferol 50,000 Unit Cap) 50,000 unit PO Q30D [facility] Ferrous Sulfate (Ferrous Sulfate 325 Mg Tab) 325 mg PO DAILY [facility] Last Admin: 07/22/20 09:24 Dose: 325 mg Documented by: Fluticasone Propionate (Fluticasone 110 Mcg Inhaler) 2 puff INHALATION RT-BID [facility] Last Admin: 07/22/20 07:51 Dose: Not Given Documented by: Folic Acid (Folic Acid 1 Mg Tab) 1 mg PO DAILY [facility] Last Admin: 07/22/20 09:24 Dose: 1 mg Documented by: Heparin Sodium (Porcine) (Heparin Sodium,Porcine 5,000 Unit/Ml 1 Ml Vial) 5,000 unit SQ Q12HR [facility] Last Admin: 07/22/20 09:24 Dose: 5,000 unit Documented by: Vancomycin HCl 2,250 mg/ (Sodium Chloride) 500 mls @ 167 mls/hr IVPB Q24H [facility] Last Admin: 07/21/20 17:48 Dose: 167 mls/hr Documented by: Insulin Aspart (Insulin Aspart (Novolog) 100 Unit/Ml Vial) 0 unit SQ ACHS [facility]; Protocol Last Admin: 07/22/20 09:22 Dose: 3 unit Documented by: Insulin Detemir (Insulin Detemir (Levemir) 100 Unit/Ml Syr) 100 unit SQ DAILY [facility] Last Admin: 07/22/20 09:46 Dose: 100 unit Documented by: Isosorbide Mononitrate (Isosorbide Mononitrate Er 30 Mg Tab.Er.24h) 30 mg PO DAILY [facility] Last Admin: 07/22/20 09:45 Dose: 30 mg Documented by: Loratadine (Loratadine 10 Mg Tab) 10 mg PO DAILY [facility] Last Admin: 07/22/20 09:26 Dose: 10 mg Documented by: Magnesium Oxide (Magnesium Oxide 400 Mg Tab) 400 mg PO DAILY [facility] Last Admin: 07/22/20 09:25 Dose: 400 mg Documented by: Metolazone (Metolazone 5 Mg Tab) 5 mg PO MOFR [facility] Last Admin: 07/21/20 10:02 Dose: 5 mg Documented by: Metoprolol Tartrate (Metoprolol Tartrate 50 Mg Tab) 50 mg PO BID [facility] Last Admin: 07/22/20 09:26 Dose: 50 mg Documented by: Naloxone HCl (Naloxone 0.4 Mg/Ml 1 Ml Vial) 0.2 mg IV Q2M PRN PRN Reason: Opioid Reversal Non-Formulary Medication (Semaglutide [Ozempic]) 1 mg SQ [facility] Ondansetron HCl (Ondansetron 4 Mg Tab) 8 mg PO Q8H PRN PRN Reason: Nausea Pantoprazole Sodium (Pantoprazole 40 Mg Tablet) 40 mg PO AC-BRKFST [facility] Last Admin: 07/22/20 09:23 Dose: 40 mg Documented by: Potassium Chloride (Potassium Chloride Er 10 Meq Tab.Er.Prt) 10 meq PO BID [facility] Last Admin: 07/22/20 09:26 Dose: 10 meq Documented by: Pravastatin Sodium (Pravastatin Sodium 20 Mg Tab) 20 mg PO DAILY [facility] Last Admin: 07/22/20 09:26 Dose: 20 mg Documented by: Pregabalin (Pregabalin 100 Mg Cap) 300 mg PO TID [facility] Last Admin: 07/22/20 09:25 Dose: 300 mg Documented by: Spironolactone (Spironolactone 25 Mg Tab) 25 mg PO DAILY [facility] Last Admin: 07/22/20 09:26 Dose: 25 mg Documented by: Sucralfate (Sucralfate 1 Gm Tab) 1 gm PO ACHS [facility] Last Admin: 07/22/20 09:23 Dose: 1 gm Documented by: Venlafaxine HCl (Venlafaxine Hcl Er 150 Mg Cap) 150 mg PO DAILY [facility] Last Admin: 07/22/20 09:26 Dose: 150 mg Documented by: Objective - Vital Signs Vital signs: Vital Signs Temp 98 F 07/22/20 08:08 Pulse 71 07/22/20 08:08 Resp 17 07/22/20 08:08 BP 121/66 07/22/20 08:08 Pulse Ox 98 07/22/20 08:08 Intake & Output 07/21/20 07/22/20 07/22/20 18:59 06:59 18:59 Intake Total 720 0 Balance 720 0 Intake: Oral 420 0 Other 300 Other: Voiding Method Toilet Toilet - Exam PHYSICAL EXAMINATION: GENERAL: The patient is alert and oriented X3, in any acute distress. Obese HEENT:No conjunctival pallor. Normocephalic, atraumatic. No pharyngeal erythema. No thyromegaly. CARDIOVASCULAR: S1 and S2 present. No murmurs, rubs, or gallops. PULMONARY: Chest is clear to auscultation, no wheezing or crackles. ABDOMEN: Soft, nontender, nondistended, normoactive bowel sounds. MUSCULOSKELETAL: No joint swelling or deformity. EXTREMITIES: Left foot wrapped, dressing clean NEUROLOGICAL: No focal neurological deficits. - Labs CBC & Chem 7: 07/22/20 05:43 07/22/20 05:43 Labs: Abnormal Lab Results - Last 24 Hours (Table) 07/21/20 07/21/20 07/21/20 Range/Units 11:34 16:49 20:01 RBC (3.80-5.40) m/uL Hgb (11.4-16.0) gm/dL Hct (34.0-46.0) % POC Glucose (mg/dL) 167 H 156 H 230 H (75-99) mg/dL 07/22/20 07/22/20 Range/Units 05:43 07:10 RBC 3.70 L (3.80-5.40) m/uL Hgb 10.8 L (11.4-16.0) gm/dL Hct 33.4 L (34.0-46.0) % POC Glucose (mg/dL) 188 H (75-99) mg/dL Microbiology - Last 24 Hours (Table) 07/21/20 12:45 Gram Stain - Preliminary Toe - Left First Wound Culture - Preliminary 07/20/20 17:46 Blood Culture - Preliminary Blood No Growth after 24 hours 07/21/20 12:45 Anaerobic Culture - Preliminary Toe - Left First Assessment and Plan Assessment: ASSESSMENT Sepsis secondary to left foot cellulitis with possible abscess/osteomyelitis Possible foreign body in the left foot Acute kidney injury CKD stage III Type 2 diabetes mellitus Hyperglycemia Elevated lactic acid Elevated CRP History of congestive heart failure with unknown ejection fraction History of COPD History of DVT Hypertension Hyperlipidemia Obstructive sleep apnea Peripheral neuropathy diabetic Chronic anemia History of MRSA History of anxiety with depression Obesity with BMI 44.6 Nicotine dependence in the past PLAN: Patient is being continued on IV vancomycin as per ERNST Buckner recommendation. Vascular surgery on board, for possible exploration of the left foot for the foreign body. Continue with the current medication regimen. Overall prognosis is guarded secondary to chronic multiple medical conditions. Further recommendations depending on the progress of the patient.
[2020-07-23 07:05] LABS: HGB 10.4 gm/dL (11.4-16.0); RBC 3.51 m/uL (3.80-5.40); WBC 8.1 k/uL (3.8-10.6)
[2020-07-23 07:06] LABS: Basophils # (A) 0.1 k/uL (0-0.2); Basophils % (A) 1 %; Eosinophils # (A) 0.2 k/uL (0-0.7); Eosinophils % (A) 3 %; HCT 31.9 % (34.0-46.0); Hypochromasia Slight; Lymphocytes # (A) 1.4 k/uL (1.0-4.8); Lymphocytes % (A) 17 %; MCH 29.7 pg (25.0-35.0); MCHC 32.7 g/dL (31.0-37.0); MCV 90.9 fL (80.0-100.0); Mean Platelet Volume 7.5; Monocytes # (A) 0.4 k/uL (0-1.0); Monocytes % (A) 5 %; Neutrophils # (A) 5.9 k/uL (1.3-7.7); Neutrophils % (A) 72 %; Platelet Count 180 k/uL (150-450); RDW 15.4 % (11.5-15.5)
[2020-07-23 07:33] LABS: Glucose,Whole Blood 247 mg/dL (75-99)
[2020-07-23] MEDS: FLUTICASONE 110 MCG INHALER INHALATION SCH ×2 (08:21→20:49)
[2020-07-23] MEDS: PREGABALIN 100 MG CAP PO SCH ×3 (09:21→20:55)
[2020-07-23] MEDS: VENLAFAXINE HCL ER 150 MG CAP PO SCH (09:22)
[2020-07-23] MEDS: PANTOPRAZOLE 40 MG TABLET PO SCH (09:22)
[2020-07-23] MEDS: METOPROLOL TARTRATE 50 MG TAB PO SCH ×2 (09:22→20:59)
[2020-07-23] MEDS: ISOSORBIDE MONONITRATE ER 30 MG TAB.ER.24H PO SCH (09:22)
[2020-07-23] MEDS: busPIRone HCl 5 MG TAB PO SCH ×3 (09:22→20:59)
[2020-07-23] MEDS: PRAVASTATIN SODIUM 20 MG TAB PO SCH (09:22)
[2020-07-23] MEDS: FOLIC ACID 1 MG TAB PO SCH (09:22)
[2020-07-23] MEDS: POTASSIUM CHLORIDE ER 10 MEQ TAB.ER.PRT PO SCH ×2 (09:22→20:59)
[2020-07-23] MEDS: SUCRALFATE 1 GM TAB PO SCH ×4 (09:22→20:59)
[2020-07-23] MEDS: LORATADINE 10 MG TAB PO SCH (09:22)
[2020-07-23] MEDS: FERROUS SULFATE 325 MG TAB PO SCH (09:23)
[2020-07-23] MEDS: ASPIRIN 81 MG PO SCH (09:23)
[2020-07-23] MEDS: allopurinoL 300 MG TAB PO SCH (09:23)
[2020-07-23] MEDS: HEPARIN SODIUM,PORCINE 5,000 UNIT/ML 1 ML VIAL SQ SCH ×2 (09:23→20:58)
[2020-07-23] MEDS: SPIRONOLACTONE 25 MG TAB PO SCH (09:23)
[2020-07-23] MEDS: MAGNESIUM OXIDE 400 MG TAB PO SCH (09:23)
[2020-07-23] MEDS: INSULIN ASPART (NovoLOG) 100 UNIT/ML VIAL SQ SCH ×4 (09:24→20:58)
[2020-07-23] MEDS: INSULIN DETEMIR (LEVEMIR) 100 UNIT/ML SYR SQ SCH (09:24)
[2020-07-23 10:51] LABS: African American GFR (CKD) 56.1 (60.0-200.0); Anion Gap 6.8 mmol/L (4.00-12.00); Carbon Dioxide 32.2 mmol/L (21.6-31.8); Non-African American GFR(CKD) 48.4 (60.0-200.0); Potassium 4.1 mmol/L (3.5-5.5)
[2020-07-23 12:16] LABS: Glucose,Whole Blood 254 mg/dL (75-99)
[2020-07-23 18:00] LABS: Glucose,Whole Blood 195 mg/dL (75-99)
[2020-07-23] MEDS: VANCOMYCIN 2,250 MG in SODIUM CHLORIDE 0.9% 500 ML 500 ML IVPB SCH (18:00)
[2020-07-23 19:35] LABS: Glucose,Whole Blood 215 mg/dL (75-99)
--- NOTE | 2020-07-23 21:49 | PN ---
PROGRESS NOTE DATE OF SERVICE: 07/23/2020 REASON FOR FOLLOWUP: Left foot infection and a question of osteomyelitis and foreign body. INTERVAL HISTORY: The patient is currently afebrile. The patient has been breathing comfortably. The patient does have neuropathy and denies pain to the left foot area. No chest pain, shortness of breath or cough. No abdominal pain or diarrhea. PHYSICAL EXAMINATION: Blood pressure 114/70 with a pulse of 60, temperature 97.6. She is 97% on room air. General description is a middle-aged female lying in bed in no distress. RESPIRATORY SYSTEM: Unlabored breathing. Clear to auscultation anteriorly. HEART: S1, S2. Regular rate and rhythm. ABDOMEN: Soft. No tenderness. Left foot is currently dressed up. No obvious drainage on the dressing. LABS: Hemoglobin is 10.4, white count 8.1. BUN of 30, creatinine 1.2. DIAGNOSTIC IMPRESSION AND PLAN: Patient with left diabetic foot infection with concern for possible osteomyelitis on the basis of abnormal x-ray and a bone scan and foreign body. Superficial culture has been negative. She will benefit from exploration of this area, removal of the foreign body and deep cultures to determine need for any outpatient IV antibiotic therapy. Continue with supportive care. MMODL / IJN: [id number] /
--- NOTE | 2020-07-23 22:59 | P.PN ---
Subjective Progress Note Date: 07/23/20 Principal diagnosis: Acute left diabetic foot cellulitis with possible abscess and possible osteomyelitis. Ms. Roberto is a 60-year-old female admitted to the hospital for left foot infection with possible osteomyelitis. Patient is currently on antibiotics in the form of vancomycin being followed by infectious disease and vascular surgery closely. Today she is sitting up in a chair by the bedside appears to be in no acute distress. Patient states that she has diabetic neuropathy and cannot feel her lower extremities, which could be the reason for current infection. Patient denies having any chest pain or palpitations. No cough or difficulty in breathing. Normal pain nausea vomiting or diarrhea. No dysuria or hematuria. She denies having any fevers chills or rigors. On reviewing the vitals temperature 98.2, heart rate 64, respiratory rate 14, blood pressure 136/62 saturating at 98% on 3 L of nasal cannula. On reviewing the labs white count of 8.4, hemoglobin 10.8, platelets 190. Sodium 140, potassium 4.2, chloride 101, BUN 36, creatinine 1.4. On 07/23/2020 -patient is seen and examined on general medical floors. Patient does not appear to be in acute distress. She denies any chest pain palpitations. No cough or difficulty breathing. No fevers chills or rigors. No abdominal pain nausea vomiting or diarrhea. On reviewing the vitals temperature is 97.6, heart rate 63, respiratory rate 17, blood pressure 148/52 saturating at 96% on 2 L of oxygen. Reviewing the labs white count of 8.1, hemoglobin 10.4, platelets 180. Sodium 142, potassium 4.1, chloride 103, bicarb 32, BUN 30, creatinine 1.2. Patient is being continued on antibiotics in the form of vancomycin. Objective - Vital Signs Vital signs: Vital Signs Temp 97.6 F 07/23/20 07:13 Pulse 63 07/23/20 07:13 Resp 17 07/23/20 07:13 BP 148/52 07/23/20 07:13 Pulse Ox 96 07/23/20 07:13 Intake & Output 07/22/20 07/23/20 07/23/20 18:59 06:59 18:59 Intake Total 360 Output Total 2 Balance -2 360 Intake: Oral 360 Output: Urine 2 Other: Voiding Method Toilet # Voids 2 # Bowel Movements 2 - Exam PHYSICAL EXAMINATION: GENERAL: The patient is alert and oriented X3, in any acute distress. Obese HEENT:No conjunctival pallor. Normocephalic, atraumatic. CARDIOVASCULAR: S1 and S2 present. No murmurs, rubs, or gallops. PULMONARY: Chest is clear to auscultation, no wheezing or crackles. ABDOMEN: Soft, nontender, nondistended, normoactive bowel sounds. EXTREMITIES: Left foot wrapped- no redness or tenderness, no drainage. NEUROLOGICAL: No focal neurological deficits. - Labs CBC & Chem 7: 07/23/20 06:42 07/23/20 06:42 Labs: Abnormal Lab Results - Last 24 Hours (Table) 07/22/20 07/22/20 07/23/20 Range/Units 17:32 20:29 06:42 RBC 3.51 L (3.80-5.40) m/uL Hgb 10.4 L (11.4-16.0) gm/dL Hct 31.9 L (34.0-46.0) % Carbon Dioxide (21.6-31.8) mmol/L BUN (9.0-27.0) mg/dL Est GFR (CKD-EPI)AfAm (60.0-200.0) Est GFR (CKD-EPI)NonAf (60.0-200.0) BUN/Creatinine Ratio (12.00-20.00) Ratio Glucose (70-110) mg/dL POC Glucose (mg/dL) 227 H 192 H (75-99) mg/dL 07/23/20 07/23/20 Range/Units 06:42 07:20 RBC (3.80-5.40) m/uL Hgb (11.4-16.0) gm/dL Hct (34.0-46.0) % Carbon Dioxide 32.2 H (21.6-31.8) mmol/L BUN 30.0 H (9.0-27.0) mg/dL Est GFR (CKD-EPI)AfAm 56.1 L (60.0-200.0) Est GFR (CKD-EPI)NonAf 48.4 L (60.0-200.0) BUN/Creatinine Ratio 25.00 H (12.00-20.00) Ratio Glucose 219 H (70-110) mg/dL POC Glucose (mg/dL) 247 H (75-99) mg/dL Microbiology - Last 24 Hours (Table) 07/21/20 12:45 Gram Stain - Final Toe - Left First Wound Culture - Final 07/20/20 17:46 Blood Culture - Preliminary Blood No Growth after 48 hours Assessment and Plan Assessment: ASSESSMENT Sepsis secondary to left foot cellulitis with possible abscess/osteomyelitis Possible foreign body in the left foot Acute kidney injury CKD stage 3 Type 2 diabetes mellitus Hyperglycemia Elevated lactic acid Elevated CRP History of congestive heart failure with unknown ejection fraction History of COPD History of DVT Hypertension Hyperlipidemia Obstructive sleep apnea Peripheral neuropathy diabetic Chronic anemia History of MRSA History of anxiety with depression Obesity with BMI 44.6 Nicotine dependence in the past PLAN: Patient is being continued on IV vancomycin as per ID Dr. Buckner recommendation. Vascular surgery on board, for possible exploration of the left foot for the foreign body. Continue with the current medication regimen. Overall prognosis is guarded secondary to chronic multiple medical conditions. Further recommendations depending on the progress of the patient.
[2020-07-24 07:09] LABS: Glucose,Whole Blood 213 mg/dL (75-99)
[2020-07-24] MEDS: INSULIN DETEMIR (LEVEMIR) 100 UNIT/ML SYR SQ SCH (07:19)
[2020-07-24] MEDS: allopurinoL 300 MG TAB PO SCH (07:20)
[2020-07-24] MEDS: LORATADINE 10 MG TAB PO SCH (07:20)
[2020-07-24] MEDS: HEPARIN SODIUM,PORCINE 5,000 UNIT/ML 1 ML VIAL SQ SCH (07:20)
[2020-07-24] MEDS: POTASSIUM CHLORIDE ER 10 MEQ TAB.ER.PRT PO SCH (07:20)
[2020-07-24] MEDS: PRAVASTATIN SODIUM 20 MG TAB PO SCH (07:20)
[2020-07-24] MEDS: SPIRONOLACTONE 25 MG TAB PO SCH (07:20)
[2020-07-24] MEDS: ISOSORBIDE MONONITRATE ER 30 MG TAB.ER.24H PO SCH (07:20)
[2020-07-24] MEDS: busPIRone HCl 5 MG TAB PO SCH ×2 (07:20→16:53)
[2020-07-24] MEDS: SUCRALFATE 1 GM TAB PO SCH ×3 (07:20→16:55)
[2020-07-24] MEDS: FOLIC ACID 1 MG TAB PO SCH (07:20)
[2020-07-24] MEDS: MAGNESIUM OXIDE 400 MG TAB PO SCH (07:20)
[2020-07-24] MEDS: ASPIRIN 81 MG PO SCH (07:20)
[2020-07-24] MEDS: METOPROLOL TARTRATE 50 MG TAB PO SCH (07:21)
[2020-07-24] MEDS: INSULIN ASPART (NovoLOG) 100 UNIT/ML VIAL SQ SCH ×3 (07:21→16:55)
[2020-07-24] MEDS: FERROUS SULFATE 325 MG TAB PO SCH (07:21)
[2020-07-24] MEDS: PANTOPRAZOLE 40 MG TABLET PO SCH (07:21)
[2020-07-24] MEDS: PREGABALIN 100 MG CAP PO SCH ×2 (07:21→16:53)
[2020-07-24] MEDS: VENLAFAXINE HCL ER 150 MG CAP PO SCH (07:22)
[2020-07-24] MEDS: metOLazone 5 MG TAB PO SCH (07:22)
[2020-07-24 07:50] VITALS: RESP 16
[2020-07-24 09:13] LABS: African American GFR (CKD) 56.1 (60.0-200.0); Non-African American GFR(CKD) 48.4 (60.0-200.0)
[2020-07-24] MEDS: FLUTICASONE 110 MCG INHALER INHALATION SCH (09:20)
[2020-07-24 11:36] LABS: Glucose,Whole Blood 197 mg/dL (75-99)
--- NOTE | 2020-07-24 14:24 | P.PN ---
Progress Note - Text 60-year-old white female, patient is known to me from the past she had a left foot big toe amputation done in January then patient had another surgery at [facility]. Patient came with some redness and cellulitis noted of the foot with some serous drainage patient is on IV antibiotic under care of infectious disease. Patient had a computed tomography scan which shows 1 mm foreign body. On examination today no discharge or redness noted of the left foot stump site if patient goes home I will follow in office in 2 weeks
[2020-07-24 14:39] VITALS: BP 168/72; PULSE 65; TEMP 98.3
--- NOTE | 2020-07-24 15:20 | PN ---
PROGRESS NOTE DATE OF SERVICE: 07/24/2020 REASON FOR FOLLOWUP: Left big toe amputation site infection, question of osteomyelitis. INTERVAL HISTORY: The patient is currently afebrile. Patient is breathing comfortably. The patient denies having any chest pain, no shortness of breath or cough. No abdominal pain or pain to left foot big toe area. PHYSICAL EXAMINATION: Blood pressure 169/77 with pulse of 66, temperature 97.9. She is 98% on 3 L nasal cannula. General description is a middle-aged female lying in bed in no distress. RESPIRATORY SYSTEM: Unlabored breathing, clear to auscultation anteriorly. HEART: S1, S2. Regular rate and rhythm. ABDOMEN: Soft. No tenderness. Left bit toe amputation site wound is currently . No redness. No drainage. LABS: Creatinine is 1.2. Blood culture negative. Local culture negative. DIAGNOSTIC IMPRESSION AND PLAN: Patient with left big toe amputation site wound with concern for possible osteomyelitis. Clinically, she I had a detailed discussion with Dr. Linda. He does not going to want to open the area causing a wound. We will send prescription of for two weeks. We will follow the patient closely in the [facility]. If any evidence of recurrent infection, may need surgical exploration and deep cultures. Continue supportive care. MMODL / IJN: [id number] /
[2020-07-24] MEDS ORDERED: VANCOMYCIN TROUGH DUE 1 EACH MISC MISCELLANE ONE (18:00)
--- NOTE | 2020-07-24 23:45 | P.DS ---
Providers Date of admission: 07/20/20 17:14 Expected date of discharge: 07/24/20 Attending physician: Violet Ballard Consults: 07/20/20 17:30 Consult Physician Routine Consulting Provider: Justina Buckner Consult Reason/Comments: poss osteomyelitis Do you want consulting provider notified?: Yes 07/20/20 18:12 Consult Physician Routine Consulting Provider: Brooks Linda Consult Reason/Comments: left foot infection Do you want consulting provider notified?: Yes Primary care physician: [facility] Course: Ms. Roberto is on 60-year-old female with a past medical history of CAD, CHF, COPD, CVA, diabetes mellitus, DVT, GERD, GI bleed, hypertension, SKYLAR, peripheral neuropathy, bilateral peripheral neuropathy secondary to diabetes, history of MRSA who recently had osteomyelitis of the left big toe, to the hospital with a chief complaint of redness in the left foot. Patient received antibiotics for 2 weeks as outpatient but still having issues so came in for further management. Hospital course -patient had x-ray of the foot showing 1 mm hyperdense retained foreign body in the dorsal soft tissues at the level of ostomy site. So vascular surgery and infectious disease were consulted. Later on patient had a nuclear bone scan which was compatible with osteomyelitis involving the medial margin of the left foot. Vascular surgery Dr. Linda evaluated the patient and suggested that she be continued on IV antibiotics as it was a very tiny foreign body. Advised her to be on antibiotics as the left stump has no discharge and the redness is improving. So ID Dr. Buckner suggested that the patient be discharged on doxycycline for 2 weeks and follow-up with wound care clinic. So the patient is being discharged home on antibiotics and advised to follow-up with wound care clinic closely. DISCHARGE DIAGNOSIS Sepsis secondary to left foot cellulitis with possible abscess/osteomyelitis Possible foreign body in the left foot Acute kidney injury CKD stage 3 Type 2 diabetes mellitus Hyperglycemia Elevated lactic acid Elevated CRP History of congestive heart failure with unknown ejection fraction History of COPD History of DVT Hypertension Hyperlipidemia Obstructive sleep apnea Peripheral neuropathy diabetic Chronic anemia History of MRSA History of anxiety with depression Obesity with BMI 44.6 Nicotine dependence in the past Follow uo : Close follow up with Wound care clinic and with Vascular surgery Dr. Lainez in 2 weeks. Patient Condition at Discharge: Fair Plan - Discharge Summary New Discharge Prescriptions: New Doxycycline Hyclate 100 mg PO BID 10 Days #20 tab Continue Omeprazole 20 mg PO BID Ferrous Sulfate [Feosol] 325 mg PO DAILY Ergocalciferol (Vitamin D2) [Vitamin D2] 50,000 unit PO Q30D Spironolactone [Aldactone] 25 mg PO DAILY Isosorbide Mononitrate [Isosorbide Mononitrate ER] 30 mg PO DAILY Venlafaxine HCl [Effexor XR] 150 mg PO DAILY allopurinoL [Zyloprim] 300 mg PO DAILY Pravastatin Sodium [Pravachol] 20 mg PO DAILY Albuterol Sulfate [Proair Hfa] 2 puff INHALATION RT-QID PRN PRN Reason: Shortness Of Breath Aspirin EC [Ecotrin Low Dose] 81 mg PO DAILY Folic Acid 1 mg PO DAILY 30 Days #30 tab metOLazone [Zaroxolyn] 5 mg PO MOFR busPIRone HCL 15 mg PO TID Baclofen 10 mg PO TID PRN PRN Reason: Muscle Pain Budesonide [Pulmicort Flexhaler] 2 puff INHALATION RT-BID Cetirizine HCl 10 mg PO DAILY HYDROcodone/APAP 7.5-325MG [Halls 7.5-325] 1 tab PO Q6H PRN PRN Reason: Pain Insulin Aspart [NovoLOG Flexpen] See Protocol SQ ACHS Insulin Degludec [Tresiba Flextouch U-100] 100 units SQ DAILY Ipratropium Nebulized [Atrovent Nebulized 0.2 MG/ML] 0.5 mg INHALATION RT-QID PRN PRN Reason: Shortness Of Breath Magnesium Oxide 400 mg PO DAILY Metoprolol Tartrate [Lopressor] 50 mg PO BID Potassium Chloride ER [K-Dur 20] 10 meq PO BID Pregabalin [Lyrica] 300 mg PO TID Semaglutide [Ozempic] 1 mg SQ WE Sucralfate [Carafate] 1 gm PO ACHS ondansetron HCL [Zofran] 8 mg PO Q8H PRN PRN Reason: Nausea Discontinued Folic Acid 1 mg PO DAILY Clindamycin HCl 300 mg PO TID Discharge Medication List Omeprazole 20 mg PO BID 08/13/17 [History] Ergocalciferol (Vitamin D2) [Vitamin D2] 50,000 unit PO Q30D 12/26/17 [History] Ferrous Sulfate [Feosol] 325 mg PO DAILY 12/26/17 [History] Isosorbide Mononitrate [Isosorbide Mononitrate ER] 30 mg PO DAILY 12/26/17 [History] Spironolactone [Aldactone] 25 mg PO DAILY 12/26/17 [History] Venlafaxine HCl [Effexor XR] 150 mg PO DAILY 12/26/17 [History] allopurinoL [Zyloprim] 300 mg PO DAILY 12/26/17 [History] Albuterol Sulfate [Proair Hfa] 2 puff INHALATION RT-QID PRN 10/06/19 [History] Aspirin EC [Ecotrin Low Dose] 81 mg PO DAILY 10/06/19 [History] Pravastatin Sodium [Pravachol] 20 mg PO DAILY 10/06/19 [History] Folic Acid 1 mg PO DAILY 30 Days #30 tab 10/12/19 [Rx] Baclofen 10 mg PO TID PRN 01/07/20 [History] busPIRone HCL 15 mg PO TID 01/07/20 [History] metOLazone [Zaroxolyn] 5 mg PO MOFR 01/07/20 [History] Budesonide [Pulmicort Flexhaler] 2 puff INHALATION RT-BID 07/20/20 [History] Cetirizine HCl 10 mg PO DAILY 07/20/20 [History] HYDROcodone/APAP 7.5-325MG [Halls 7.5-325] 1 tab PO Q6H PRN 07/20/20 [History] Insulin Aspart [NovoLOG Flexpen] See Protocol SQ ACHS 07/20/20 [History] Insulin Degludec [Tresiba Flextouch U-100] 100 units SQ DAILY 07/20/20 [History] Ipratropium Nebulized [Atrovent Nebulized 0.2 MG/ML] 0.5 mg INHALATION RT-QID PRN 07/20/20 [History] Magnesium Oxide 400 mg PO DAILY 07/20/20 [History] Metoprolol Tartrate [Lopressor] 50 mg PO BID 07/20/20 [History] Potassium Chloride ER [K-Dur 20] 10 meq PO BID 07/20/20 [History] Pregabalin [Lyrica] 300 mg PO TID 07/20/20 [History] Semaglutide [Ozempic] 1 mg SQ WE 07/20/20 [History] Sucralfate [Carafate] 1 gm PO ACHS 07/20/20 [History] ondansetron HCL [Zofran] 8 mg PO Q8H PRN 07/20/20 [History] Doxycycline Hyclate 100 mg PO BID 10 Days #20 tab 07/24/20 [Rx] Follow up Appointment(s)/Referral(s): Richa Lopez MD [Primary Care Provider] - 1-2 days [facility] [NON-STAFF] - 1 Week Brooks Linda MD [STAFF PHYSICIAN] - 2 Weeks [facility] [NON-STAFF] - 1-2 Days Patient Instructions/Handouts: Osteomyelitis (DC) Discharge Disposition: HOME SELF-CARE
[2020-07-26] MEDS ORDERED: NON FORMULARY DRUG (Semaglutide [Ozempic] 1 MG/0.75 ML Pen.Injctr) SQ SCH (09:00)
[2020-08-13] MEDS ORDERED: ERGOCALCIFEROL 50,000 UNIT CAP PO SCH (09:00)
== END 2020-07-24 17:36 | disposition home health service (06) | DRG 872 ==
LOC: EC 15:30 → 5NMEDONC 17:14
PROVIDERS: ADMIT Hospitalist; ATTEND Hospitalist
DX: A41.9 Sepsis, unspecified organism (principal); E87.2 Acidosis; I13.0 Hypertensive heart and chronic kidney disease with heart failure and stage 1 through stage 4 chronic kidney disease, or unspecified chronic kidney disease; N17.9 Acute kidney failure, unspecified; T87.44 Infection of amputation stump, left lower extremity; M86.9 Osteomyelitis, unspecified; L03.116 Cellulitis of left lower limb; Z68.41 Body mass index [BMI] 40.0-44.9, adult; D63.1 Anemia in chronic kidney disease; E11.51 Type 2 diabetes mellitus with diabetic peripheral angiopathy without gangrene; E11.42 Type 2 diabetes mellitus with diabetic polyneuropathy; E11.22 Type 2 diabetes mellitus with diabetic chronic kidney disease; E11.69 Type 2 diabetes mellitus with other specified complication; E11.628 Type 2 diabetes mellitus with other skin complications; I50.9 Heart failure, unspecified; E66.01 Morbid (severe) obesity due to excess calories; E11.65 Type 2 diabetes mellitus with hyperglycemia; Z79.4 Long term (current) use of insulin; Z89.412 Acquired absence of left great toe; N18.30 Chronic kidney disease, stage 3 unspecified; K21.9 Gastro-esophageal reflux disease without esophagitis; I25.2 Old myocardial infarction; G47.33 Obstructive sleep apnea (adult) (pediatric); I25.10 Atherosclerotic heart disease of native coronary artery without angina pectoris; J44.9 Chronic obstructive pulmonary disease, unspecified; M79.5 Residual foreign body in soft tissue; E78.5 Hyperlipidemia, unspecified; G89.29 Other chronic pain; M54.5 Low back pain; M15.9 Polyosteoarthritis, unspecified; F41.8 Other specified anxiety disorders; M10.9 Gout, unspecified; Z79.82 Long term (current) use of aspirin; Z79.51 Long term (current) use of inhaled steroids; Z79.899 Other long term (current) drug therapy; Z87.891 Personal history of nicotine dependence; Z86.73 Personal history of transient ischemic attack (TIA), and cerebral infarction without residual deficits; Z86.718 Personal history of other venous thrombosis and embolism; Z87.19 Personal history of other diseases of the digestive system; Z87.01 Personal history of pneumonia (recurrent); Z86.14 Personal history of Methicillin resistant Staphylococcus aureus infection; Z98.51 Tubal ligation status; Z87.448 Personal history of other diseases of urinary system; Z87.2 Personal history of diseases of the skin and subcutaneous tissue; Z86.31 Personal history of diabetic foot ulcer; Z87.09 Personal history of other diseases of the respiratory system; Z98.890 Other specified postprocedural states; Z88.5 Allergy status to narcotic agent; Z83.3 Family history of diabetes mellitus; Z80.3 Family history of malignant neoplasm of breast; Z80.8 Family history of malignant neoplasm of other organs or systems; Z83.49 Family history of other endocrine, nutritional and metabolic diseases; Y83.5 Amputation of limb(s) as the cause of abnormal reaction of the patient, or of later complication, without mention of misadventure at the time of the procedure
CPT/HCPCS: 36415; 78315; 80048; 80053; 82565; 83605; 85025; 86140; 87040; 87070; 87075; 87205; 96365; 96367; 96375; 99285